=== PATIENT | female | born 1955 | race Caucasian/White ===

== ENCOUNTER → 2018-02-03 | Outpatient (CLI) | payer BC ==
--- NOTE | 2018-02-05 09:03 | MM ---
Reason for exam: screening (asymptomatic). Last mammogram was performed 4 years and 6 months ago. History: Patient is postmenopausal. Physical Findings: A clinical breast exam by your physician is recommended on an annual basis and results should be correlated with mammographic findings. MG 3D Screening Mammo W/Cad Bilateral CC and MLO view(s) were taken. Prior study comparison: July 27, 2013, bilateral digital screening mammo w/CAD. November 21, 2011, [facility] DIGITAL RIGHT MAMMOGRAM w/CAD. The breast tissue is heterogeneously dense. This may lower the sensitivity of mammography. No significant changes when compared with prior studies. ASSESSMENT: Negative, BI-RAD 1 RECOMMENDATION: Routine screening mammogram of both breasts in 1 year.
== END ==
LOC: RADMAMWWP 13:45
PROVIDERS: ATTEND Family Medicine
DX: Z12.31 Encounter for screening mammogram for malignant neoplasm of breast (principal)
CPT/HCPCS: 77063; 77067

== ENCOUNTER → 2019-03-18 | Outpatient (CLI) | payer BC ==
--- NOTE | 2019-03-18 15:28 | BD ---
EXAMINATION TYPE: Axial Bone Density DATE OF EXAM: 03/18/2019 COMPARISON: 04/21/2009 CLINICAL HISTORY: Height: 63 IN Weight: 141 LBS RISK FACTORS HISTORY OF: Active: YES Diet low in dairy products/other sources of calcium: YES Postmenopausal woman: AGE 52 MEDICATIONS: Additional Medications: VIT D3, THYROID SUPPLEMENT, FISH OIL EXAM MEASUREMENTS: Bone mineral densitometry was performed using the [employer] System. Bone mineral density as measured about the Lumbar spine is: ----- L1-L4(G/cm2): 0.908 T Score Values are as follows: ----- L2: -2.9 ----- L3: -1.7 ----- L4: -1.9 ----- L1-L4: -2.3 Bone mineral density has: Decreased -19.4% since study of: 04/21/2009 Bone mineral density about the R hip (g/cm2): 0.712 Bone mineral density about the L hip (g/cm2): 0.674 T Score values are as follows: -----R Neck: -2.3 -----L Neck: -2.6 -----R Total: -2.3 -----L Total: -2.4 Bone mineral density has: Decreased -27.7% since study of: 04/21/2009 IMPRESSION: Osteoporosis (T Score less than -2.5). There is increased fracture risk and therapy is usually indicated based on age. Re-Screen 1-2 years. NOTE: T-SCORE=SD OF THE YOUNG ADULT MEAN.
--- NOTE | 2019-03-19 09:46 | MM ---
Reason for exam: screening (asymptomatic). Last mammogram was performed 1 year and 1 month ago. History: Patient is postmenopausal. Physical Findings: A clinical breast exam by your physician is recommended on an annual basis and results should be correlated with mammographic findings. MG 3D Screening Mammo W/Cad Bilateral CC and MLO view(s) were taken. Prior study comparison: February 03, 2018, bilateral MG 3d screening mammo w/cad. July 27, 2013, bilateral digital screening mammo w/CAD. The breast tissue is heterogeneously dense. This may lower the sensitivity of mammography. There is a 7 mm equal density (isodense), obscured mass in the lower inner quadrant of the right breast. ASSESSMENT: Incomplete: need additional imaging evaluation, BI-RAD 0 RECOMMENDATION: Special view mammogram of the right breast. If lesion persists on supplemental views, image directed ultrasound is recommended. [facility] will attempt to contact patient to return for supplemental views and ultrasound if indicated.
== END | disposition home or self-care (01) ==
LOC: RADMAMWWP 13:45
PROVIDERS: ATTEND Family Medicine
DX: Z12.31 Encounter for screening mammogram for malignant neoplasm of breast (principal); M81.0 Age-related osteoporosis without current pathological fracture
CPT/HCPCS: 77063; 77067; 77080

== ENCOUNTER → 2019-04-06 | Outpatient (CLI) | payer BC ==
--- NOTE | 2019-04-07 07:12 | MM ---
Reason for exam: additional evaluation requested from abnormal screening. Last mammogram was performed 1 month ago. History: Patient is postmenopausal. Physical Findings: Nurse did not find any significant physical abnormalities on exam. MG 3D Work Up W/Cad RT Spot compression CC, spot compression MLO, and LM view(s) were taken of the right breast. Prior study comparison: March 18, 2019, bilateral MG 3d screening mammo w/cad. February 03, 2018, bilateral MG 3d screening mammo w/cad. The breast tissue is heterogeneously dense. This may lower the sensitivity of mammography. The previously seen abnormality resolves on additional views and appears as fibroglandular tissue compatible with summation. No suspicious abnormality. These results were verbally communicated with the patient and result sheet given to the patient on 04/06/19. ASSESSMENT: Negative, BI-RAD 1 RECOMMENDATION: Return to routine screening mammogram schedule for both breasts.
== END | disposition home or self-care (01) ==
LOC: RADMAMWWP 14:41
PROVIDERS: ATTEND Family Medicine
DX: R92.8 Other abnormal and inconclusive findings on diagnostic imaging of breast (principal)
CPT/HCPCS: 77061; 77065

== ENCOUNTER 2022-04-09 00:59 | Emergency (ER) | payer BC, OTHER ==
--- NOTE | 2022-04-09 02:11 | ED ---
Upper Extremity HPI - General Chief Complaint: Extremity Injury, Upper Stated Complaint: lt shoulder pain/neck pain Time Seen by Provider: 04/09/22 01:21 Source: patient Mode of arrival: ambulatory Limitations: no limitations - History of Present Illness Initial Comments: This patient is a 66-year-old woman who presents with complaint of pain that goes from her left back/shoulder down the left arm. The patient states this been going on mildly for a few days but became worse tonight. The patient does note that she is receiving therapy to her left shoulder and arm and believes that the pain may be related to that. Complaint: Injury to:: left, arm -: days(s) Other Extremity Injury: Arm: Left, Shoulder: Left Handedness: right Place: home Improves With: immobilization Worsens With: movement of extremity Context: other (Following therapy) Treatments Prior to Arrival: other - Related Data Previous Rx's Medication Instructions Recorded Ibuprofen [Motrin] 600 mg PO Q8HR PRN #20 tab 04/09/22 methocarbamoL [Robaxin-750] 750 mg PO QID #40 tab 04/09/22 Allergies Allergy/AdvReac Type Severity Reaction Status Date / Time No Known Allergies Allergy Verified 04/09/22 01:03 Review of Systems ROS Statement: Those systems with pertinent positive or pertinent negative responses have been documented in the HPI. ROS Other: All systems not noted in ROS Statement are negative. Constitutional: Denies: fever, chills Respiratory: Denies: cough, dyspnea Cardiovascular: Denies: chest pain, palpitations, edema Gastrointestinal: Denies: abdominal pain, vomiting, diarrhea Genitourinary: Denies: dysuria Musculoskeletal: Denies: back pain Skin: Denies: rash Neurological: Denies: headache, weakness, numbness, paresthesias Past Medical History Past Medical History: No Reported History History of Any Multi-Drug Resistant Organisms: None Reported Past Surgical History: Section Past Psychological History: No Psychological Hx Reported Smoking Status: Never smoker Past Alcohol Use History: Occasional Past Drug Use History: None Reported General Exam Limitations: no limitations General appearance: alert, in no apparent distress Head exam: Present: atraumatic, normocephalic Eye exam: Present: normal appearance. Absent: scleral icterus, conjunctival injection Neck exam: Present: normal inspection Respiratory exam: Present: normal lung sounds bilaterally. Absent: respiratory distress, wheezes, rales, rhonchi, stridor Cardiovascular Exam: Present: regular rate, normal rhythm, normal heart sounds. Absent: systolic murmur, diastolic murmur, rubs, gallop GI/Abdominal exam: Present: soft. Absent: distended, tenderness, guarding, rebound, rigid, mass Extremities exam: Present: normal inspection, normal capillary refill. Absent: pedal edema, calf tenderness Back exam: Present: normal inspection. Absent: CVA tenderness (R), CVA tenderness (L), vertebral tenderness Neurological exam: Present: alert Skin exam: Present: warm, dry, intact, normal color. Absent: rash Course Vital Signs 04/09/22 04/09/22 01:00 03:50 Temperature 97 F L 97.7 F Pulse Rate 76 63 Respiratory 22 18 Rate Blood Pressure 195/111 184/106 O2 Sat by Pulse 96 93 L Oximetry Medical Decision Making - Medical Decision Making Patient is 66-year-old woman with shoulder and arm pain following therapy. The symptoms are reproducible on the exam. Out of caution cardiac workup obtained which is unremarkable. The patient to use ice, rest, anti-inflammatories and follow-up. Discussed appropriate return parameters. - Lab Data Result diagrams: 04/09/22 02:20 04/09/22 02:20 Lab Results 04/09/22 04/09/22 04/09/22 Range/Units 02:20 02:20 02:20 WBC 6.0 (3.8-10.6) k/uL RBC 5.16 (3.80-5.40) m/uL Hgb 15.9 (11.4-16.0) gm/dL Hct 46.2 H (34.0-46.0) % MCV 89.4 (80.0-100.0) fL MCH 30.8 (25.0-35.0) pg MCHC 34.4 (31.0-37.0) g/dL RDW 12.8 (11.5-15.5) % Plt Count 234 (150-450) k/uL MPV 8.8 Neutrophils % 82 % Lymphocytes % 13 % Monocytes % 2 % Eosinophils % 1 % Basophils % 1 % Neutrophils # 4.9 (1.3-7.7) k/uL Lymphocytes # 0.8 L (1.0-4.8) k/uL Monocytes # 0.1 (0-1.0) k/uL Eosinophils # 0.1 (0-0.7) k/uL Basophils # 0.0 (0-0.2) k/uL D-Dimer (<0.60) mg/L FEU Sodium 139 (137-145) mmol/L Potassium 4.2 (3.5-5.1) mmol/L Chloride 108 H (98-107) mmol/L Carbon Dioxide 21 L (22-30) mmol/L Anion Gap 10 mmol/L BUN 18 H (7-17) mg/dL Creatinine 0.75 (0.52-1.04) mg/dL Est GFR (CKD-EPI)AfAm >90 (>60 ml/min/1.73 sqM) Est GFR (CKD-EPI)NonAf 85 (>60 ml/min/1.73 sqM) Glucose 162 H (74-99) mg/dL Calcium 11.0 H (8.4-10.2) mg/dL Total Bilirubin 0.4 (0.2-1.3) mg/dL AST 30 (14-36) U/L ALT 35 H (4-34) U/L Alkaline Phosphatase 171 H (38-126) U/L Troponin I <0.012 (0.000-0.034) ng/mL Total Protein 8.0 (6.3-8.2) g/dL Albumin 4.7 (3.5-5.0) g/dL 04/09/22 Range/Units 02:20 WBC (3.8-10.6) k/uL RBC (3.80-5.40) m/uL Hgb (11.4-16.0) gm/dL Hct (34.0-46.0) % MCV (80.0-100.0) fL MCH (25.0-35.0) pg MCHC (31.0-37.0) g/dL RDW (11.5-15.5) % Plt Count (150-450) k/uL MPV Neutrophils % % Lymphocytes % % Monocytes % % Eosinophils % % Basophils % % Neutrophils # (1.3-7.7) k/uL Lymphocytes # (1.0-4.8) k/uL Monocytes # (0-1.0) k/uL Eosinophils # (0-0.7) k/uL Basophils # (0-0.2) k/uL D-Dimer 0.29 (<0.60) mg/L FEU Sodium (137-145) mmol/L Potassium (3.5-5.1) mmol/L Chloride (98-107) mmol/L Carbon Dioxide (22-30) mmol/L Anion Gap mmol/L BUN (7-17) mg/dL Creatinine (0.52-1.04) mg/dL Est GFR (CKD-EPI)AfAm (>60 ml/min/1.73 sqM) Est GFR (CKD-EPI)NonAf (>60 ml/min/1.73 sqM) Glucose (74-99) mg/dL Calcium (8.4-10.2) mg/dL Total Bilirubin (0.2-1.3) mg/dL AST (14-36) U/L ALT (4-34) U/L Alkaline Phosphatase (38-126) U/L Troponin I (0.000-0.034) ng/mL Total Protein (6.3-8.2) g/dL Albumin (3.5-5.0) g/dL Disposition Clinical Impression: Muscle strain Disposition: HOME SELF-CARE Condition: Good Instructions (If sedation given, give patient instructions): Muscle Strain (ED) Prescriptions: Ibuprofen [Motrin] 600 mg PO Q8HR PRN #20 tab PRN Reason: Pain methocarbamoL [Robaxin-750] 750 mg PO QID #40 tab Is patient prescribed a controlled substance at d/c from ED?: No Referrals: Marcela Naranjo DO [Primary Care Provider] - 1-2 days
[2022-04-09] MEDS ORDERED: MORPHINE SULFATE 4 MG/ML SYRINGE IV STA (02:22)
[2022-04-09] MEDS ORDERED: KETOROLAC 15 MG/ML 1 ML VIAL IVP STA (02:22)
--- NOTE | 2022-04-09 02:42 | XR ---
EXAM: XR Chest, 2 Views CLINICAL HISTORY: ITS.REASON XR Reason: Chest Pain TECHNIQUE: Frontal and lateral views of the chest. COMPARISON: No relevant prior studies available. FINDINGS: Lungs: Unremarkable. Pleural space: Unremarkable. Heart: Unremarkable. Mediastinum: Unremarkable. Bones/joints: Unremarkable. IMPRESSION: Normal chest x-rays.
[2022-04-09 02:43] LABS: Basophils % (A) 1 %; Eosinophils # (A) 0.1 k/uL (0-0.7); Eosinophils % (A) 1 %; HCT 46.2 % (34.0-46.0); HGB 15.9 gm/dL (11.4-16.0); Lymphocytes # (A) 0.8 k/uL (1.0-4.8); Lymphocytes % (A) 13 %; MCH 30.8 pg (25.0-35.0); MCHC 34.4 g/dL (31.0-37.0); MCV 89.4 fL (80.0-100.0); Mean Platelet Volume 8.8; Monocytes # (A) 0.1 k/uL (0-1.0); Monocytes % (A) 2 %; Neutrophils # (A) 4.9 k/uL (1.3-7.7); Neutrophils % (A) 82 %; Platelet Count 234 k/uL (150-450); RBC 5.16 m/uL (3.80-5.40); RDW 12.8 % (11.5-15.5)
[2022-04-09 02:56] LABS: ALT 35 U/L (4-34); AST 30 U/L (14-36); African American GFR (CKD) >90 (>60 ml/min/1.73 sqM); Albumin 4.7 g/dL (3.5-5.0); Alkaline Phosphatase 171 U/L (38-126); Anion Gap 10 mmol/L; Blood Urea Nitrogen 18 mg/dL (7-17); Carbon Dioxide 21 mmol/L (22-30); Chloride 108 mmol/L (98-107); Glucose 162 mg/dL (74-99); Non-African American GFR(CKD) 85 (>60 ml/min/1.73 sqM); Potassium 4.2 mmol/L (3.5-5.1); Sodium 139 mmol/L (137-145); Total Bilirubin 0.4 mg/dL (0.2-1.3)
[2022-04-09] MEDS ORDERED: traMADol 50 MG STARTER PACK 3 TAB BTL PO STA (03:42)
[2022-04-09] MEDS ORDERED: IBUPROFEN 600 MG STARTER PACK 4 TAB BTL PO STA (03:42)
[2022-04-09 03:51] VITALS: BP 184/106; PULSE 63; RESP 18; TEMP 97.7
== END 2022-04-09 04:07 | disposition home or self-care (01) ==
LOC: EC 00:59
DX: S46.912A Strain of unspecified muscle, fascia and tendon at shoulder and upper arm level, left arm, initial encounter (principal); X58.XXXA Exposure to other specified factors, initial encounter
CPT/HCPCS: 99284; 96374; 96375; 36415; 93005; 85379; 80053; 84484; 85025; 71046; J2270; J1885

== ENCOUNTER → 2023-02-18 | Outpatient (CLI) | payer MEDICARE, BC ==
--- NOTE | 2023-02-18 22:41 | BD ---
EXAMINATION TYPE: Axial Bone Density DATE OF EXAM: 02/18/2023 CLINICAL HISTORY: 67 years old Female. ICD-10 CODE: Z78.0 MENOPAUSAL STATE Height: 5 ft 2 1/2 in Weight: 143 FRAX RISK QUESTIONS: Alcohol (3 or more units per day): no Family History (Parent hip fracture): no Glucocorticoids (More than 3mos): no (Ex: prednisone, prednisolone, methylprednisolone, dexamethasone, and hydrocortisone). History of Fracture in Adulthood: no Secondary Osteoporosis: 1. Type 1 Diabetes: no 2. Hyperthyroidism: no 3. Menopause before 45: no 4. Malnutrition: no 5. Chronic liver disease: no Rheumatoid Arthritis: no Current Tobacco Use: no RISK FACTORS HISTORY OF: Surgery to Spine/Hip(right/left)/Wrist (right/left): no Family History of Osteoporosis: no Active: yes Diet low in dairy products/other sources of calcium: no Postmenopausal woman: yes Take estrogen and/or progesterone medications: no Lost more than 2 inches in height since high school: no Frequent falls: no Poor Health: good Hyperparathyroidism: no Adrenal Insufficiency: no MEDICATIONS: Additional Medications: none Additional History: EXAM MEASUREMENTS: Bone mineral densitometry was performed using the [employer] System. Bone mineral density as measured about the Lumbar spine is: ----- L1-L4(G/cm2): 0.868 T Score Values are as follows: ----- L1: -3.0 ----- L2: -3.5 ----- L3: -2.6 ----- L4: -1.5 ----- L1-L4: -2.6 Z Score Values are as follows: ----- L1: -1.4 ----- L2: -1.9 ----- L3: -1.0 ----- L4: 0.1 ----- L1-L4: -1.0 Bone mineral density has: decreased -4.4 % since study of: 2019 Bone mineral density about the R hip (g/cm2): 0.679 Bone mineral density about the L hip (g/cm2): 0.699 T Score values are as follows: -----R Neck: -2.6 -----L Neck: -2.4 -----R Total: -2.4 -----L Total: -2.4 Z Score values are as follows: -----R Neck: -1.1 -----L Neck: -0.9 -----R Total: -1.2 -----L Total: -1.2 Bone mineral density has: decreased -1.3 % since study of: 2019 FRAX%s: The graph provided illustrates a 14.1 % chance for a major osteoporotic fx and a 3.2 % chance for the hips probability for fx in 10 years time. IMPRESSION: Osteoporosis (T Score less than -2.5). There is increased fracture risk and therapy is usually indicated based on age. Re-Screen 1-2 years. NOTE: T-SCORE=SD OF THE YOUNG ADULT MEAN.
== END | disposition home or self-care (01) ==
LOC: RADBDWWP 15:55
PROVIDERS: ATTEND Family Medicine
DX: M81.0 Age-related osteoporosis without current pathological fracture (principal); M85.89 Other specified disorders of bone density and structure, multiple sites; Z78.0 Asymptomatic menopausal state
CPT/HCPCS: 77080

== ENCOUNTER 2024-06-25 03:31 | Inpatient (IN) | payer MEDICARE, BC ==
--- NOTE | 2024-06-25 04:25 | ED ---
General Adult HPI - General Chief complaint: Chest Pain Stated complaint: Chest Pain Time Seen by Provider: 06/25/24 04:13 Source: patient Mode of arrival: EMS Limitations: no limitations - History of Present Illness Initial comments: Trudy is a pleasant presents the ER today for evaluation of abdominal pain. Patient reports she has been having chest pressure for about 10 days it has been intermittent until about 2 days ago and it has been constant pressure in the chest. Patient states that she was somewhat constipated and thought it was just indigestion from that. Patient states that it became bothersome enough that this morning she saw her primary care provider who did an EKG and told her it was normal but did give her nitro and patient did have some temporary relief of her discomfort. This evening patient reports the pressure seem to get more intense and feel very heavy in her chest she then developed nausea and had episode of nonbloody nonbilious emesis. Patient reports she then had a bowel movement had about 2 minutes of relief from the discomfort and the pressure in her chest became more heavy at which time she decided to call EMS for transport to the hospital. Patient has no cardiac history. She does have a previous history of hypertension but reports she was able to wean herself off medications about 10 years ago. She does have hyperlipidemia does not believe she currently takes any medications for that. She is not diabetic and she was never a smoker. No significant family history of heart disease. - Related Data Previous Rx's Medication Instructions Recorded Ibuprofen [Motrin] 600 mg PO Q8HR PRN #20 tab 04/09/22 methocarbamoL [Robaxin-750] 750 mg PO QID #40 tab 04/09/22 Allergies Allergy/AdvReac Type Severity Reaction Status Date / Time No Known Allergies Allergy Verified 06/25/24 03:43 Review of Systems ROS Statement: Those systems with pertinent positive or pertinent negative responses have been documented in the HPI. ROS Other: All systems not noted in ROS Statement are negative. Past Medical History Past Medical History: Hypertension Additional Past Medical History / Comment(s): osteoporosis History of Any Multi-Drug Resistant Organisms: None Reported Past Surgical History: Section Past Psychological History: No Psychological Hx Reported Smoking Status: Never smoker Past Alcohol Use History: Occasional Past Drug Use History: None Reported General Exam - General Exam Comments Initial Comments: Physical Exam GENERAL: Patient is well-developed and well-nourished. Patient is nontoxic and well- hydrated and is in no distress. HENT: Normocephalic, Atraumatic. EYES: PERRL, EOMI PULMONARY: Unlabored respirations. No audible rales rhonchi or wheezing was noted. CARDIOVASCULAR: There is a regular rate and rhythm without any murmurs gallops or rubs. ABDOMEN: Soft and nontender with normal bowel sounds. SKIN: Skin is clear with no lesions or rashes and otherwise unremarkable. : Deferred NEUROLOGIC: Patient is alert and oriented x3. Moving all extremities spontaneously MUSCULOSKELETAL: Normal extremities with adequate strength and full range of motion. No lower extremity swelling or edema. No calf tenderness. PSYCHIATRIC: Normal psychiatric evaluation. Limitations: no limitations Course Vital Signs 06/25/24 06/25/24 03:32 05:41 Temperature 98.6 F Pulse Rate 63 65 Respiratory 16 16 Rate Blood Pressure 153/88 164/101 O2 Sat by Pulse 95 94 L Oximetry EKG Findings - EKG Comments: EKG Findings:: Interpreted by me EKG obtained due to chest pain EKG obtained at 3:52 AM rate is 63 rhythm is sinus normal axis normal intervals VA 175 QRS 92 QTc 425 there are no acute ST elevations or depressions there is no evidence of acute ischemia or infarction. Medical Decision Making - Medical Decision Making Was pt. sent in by a medical professional or institution (, [facility], MEDICATION NURSE, urgent care, hospital, or half-way...) When possible be specific @ -No Did you speak to anyone other than the patient for history (EMS, parent, family, police, friend...)? What history was obtained from this source @ -No Did you review nursing and triage notes (agree or disagree)? Why? @ -I reviewed and agree with nursing and triage notes Were old charts reviewed (outside hosp., previous admission, EMS record, old EKG, old radiological studies, urgent care reports/EKG's, half-way records)? Report findings @ -No old charts were reviewed Differential Diagnosis (chest pain, altered mental status, abdominal pain women, abdominal pain men, vaginal bleeding, weakness, fever, dyspnea, syncope, headache, dizziness, GI bleed, back pain, seizure, CVA, palpatations, mental health)? @ -Differential Chest Pain: Stable Angina, Unstable Angina, STEMI, NSTEMI Aortic Dissection, Pneumothorax, Musculoskeletal, Esophageal Spasm GERD, Cholecystitis, Pancreatitis, Zoster, this is not meant to be an all-inclusive list. EKG interpreted by me (3pts min.). @ -As above X-rays interpreted by me (1pt min.). @ -No pneumothorax no consolidations no widened mediastinum CT interpreted by me (1pt min.). @ -None done U/S interpreted by me (1pt. min.). @ -None done What testing was considered but not performed or refused? (CT, X-rays, U/S, labs)? Why? @ -None What meds were considered but not given or refused? Why? @ -None Did you discuss the management of the patient with other professionals (professionals i.e. DrMartita, PA, MEDICATION NURSE, lab, RT, psych nurse, social media coordinator, salsa dance instructor, teacher, conservation officer, welfare case worker)? Give summary @ -No Was smoking cessation discussed for >3mins.? @ -No Was critical care preformed (if so, how long)? @ -Yes 30 minutes Were there social determinants of health that impacted care today? How? (Homelessness, low income, unemployed, alcoholism, drug addiction, transportation, low edu. Level, literacy, decrease access to med. care, prison, rehab)? @ -No Was there de-escalation of care discussed even if they declined (Discuss DNR or withdrawal of care, Hospice)? DNR status @ -No What co-morbidities impacted this encounter? (DM, HTN, Smoking, COPD, CAD, Cancer, CVA, ARF, Chemo, Hep., AIDS, mental health diagnosis, sleep apnea, morbid obesity)? @ -Hypertension , hyperlipidemia Was patient admitted / discharged? Hospital course, mention meds given and route, prescriptions, significant lab abnormalities, going to OR and other pertinent info. @ -Admit Patient was seen and evaluated upon arrival to the emergency department. Patient with multiple atypical of acute coronary syndrome EKG with possible Q waves but no acute ST elevations or depressions Labs were obtained and troponin is mildly elevated given that the patient is having symptoms concerning for ACS and elevated troponin we will treat as an NSTEMI. Heparin was initiated. Patient will be for evaluation by cardiology. Undiagnosed new problem with uncertain prognosis? @ -No Drug Therapy requiring intensive monitoring for toxicity (Heparin, Nitro, Insulin, Cardizem)? @ -, Heparin Were any procedures done? @ -No Diagnosis/symptom? @ -NSTEMI Acute, or Chronic, or Acute on Chronic? @ -Acute Uncomplicated (without systemic symptoms) or Complicated (systemic symptoms)? @ -Default Side effects of treatment? @ -No Exacerbation, Progression, or Severe Exacerbation? @ -No Poses a threat to life or bodily function? How? (Chest pain, [place], [place], pneumonia, PE, COPD, DKA, ARF, appy, cholecystitis, CVA, Diverticulitis, Homicidal, Suicidal, threat to staff... and all critical care pts) @ -Yes - Lab Data Result diagrams: 06/25/24 03:53 06/25/24 03:53 Lab Results 06/25/24 06/25/24 06/25/24 Range/Units 03:53 03:53 03:53 WBC 7.1 (3.8-10.6) k/uL RBC 4.78 (3.80-5.40) m/uL Hgb 14.2 (11.4-16.0) gm/dL Hct 42.3 (34.0-46.0) % MCV 88.5 (80.0-100.0) fL MCH 29.7 (25.0-35.0) pg MCHC 33.6 (31.0-37.0) g/dL RDW 12.5 (11.5-15.5) % Plt Count 196 (150-450) k/uL MPV 9.0 Neutrophils % 77 % Lymphocytes % 16 % Monocytes % 5 % Eosinophils % 1 % Basophils % 0 % Neutrophils # 5.5 (1.3-7.7) k/uL Lymphocytes # 1.1 (1.0-4.8) k/uL Monocytes # 0.3 (0-1.0) k/uL Eosinophils # 0.1 (0-0.7) k/uL Basophils # 0.0 (0-0.2) k/uL PT 10.5 (10.0-12.5) sec INR 0.9 (<1.2) APTT 22.6 (22.0-30.0) sec Sodium 140 (137-145) mmol/L Potassium 4.1 (3.5-5.1) mmol/L Chloride 107 (98-107) mmol/L Carbon Dioxide 25 (22-30) mmol/L Anion Gap 8 mmol/L BUN 17 (7-17) mg/dL Creatinine 0.74 (0.52-1.04) mg/dL Est GFR (CKD-EPI)AfAm >90 (>60 ml/min/1.73 sqM) Est GFR (CKD-EPI)NonAf 85 (>60 ml/min/1.73 sqM) Glucose 158 H (74-99) mg/dL Calcium 11.2 H (8.4-10.2) mg/dL Magnesium 2.2 (1.6-2.3) mg/dL Total Bilirubin 0.5 (0.2-1.3) mg/dL AST 28 (14-36) U/L ALT 28 (4-34) U/L Alkaline Phosphatase 130 H (38-126) U/L Troponin I (0.000-0.034) ng/mL NT-Pro-B Natriuret Pep 62 pg/mL Total Protein 6.8 (6.3-8.2) g/dL Albumin 4.0 (3.5-5.0) g/dL Lipase 107 (23-300) U/L 06/25/24 Range/Units 03:53 WBC (3.8-10.6) k/uL RBC (3.80-5.40) m/uL Hgb (11.4-16.0) gm/dL Hct (34.0-46.0) % MCV (80.0-100.0) fL MCH (25.0-35.0) pg MCHC (31.0-37.0) g/dL RDW (11.5-15.5) % Plt Count (150-450) k/uL MPV Neutrophils % % Lymphocytes % % Monocytes % % Eosinophils % % Basophils % % Neutrophils # (1.3-7.7) k/uL Lymphocytes # (1.0-4.8) k/uL Monocytes # (0-1.0) k/uL Eosinophils # (0-0.7) k/uL Basophils # (0-0.2) k/uL PT (10.0-12.5) sec INR (<1.2) APTT (22.0-30.0) sec Sodium (137-145) mmol/L Potassium (3.5-5.1) mmol/L Chloride (98-107) mmol/L Carbon Dioxide (22-30) mmol/L Anion Gap mmol/L BUN (7-17) mg/dL Creatinine (0.52-1.04) mg/dL Est GFR (CKD-EPI)AfAm (>60 ml/min/1.73 sqM) Est GFR (CKD-EPI)NonAf (>60 ml/min/1.73 sqM) Glucose (74-99) mg/dL Calcium (8.4-10.2) mg/dL Magnesium (1.6-2.3) mg/dL Total Bilirubin (0.2-1.3) mg/dL AST (14-36) U/L ALT (4-34) U/L Alkaline Phosphatase (38-126) U/L Troponin I 0.079 H* (0.000-0.034) ng/mL NT-Pro-B Natriuret Pep pg/mL Total Protein (6.3-8.2) g/dL Albumin (3.5-5.0) g/dL Lipase (23-300) U/L Disposition Clinical Impression: NSTEMI (non-ST elevated myocardial infarction) Disposition: ADMITTED IP TO THIS HOSP Condition: Stable Is patient prescribed a controlled substance at d/c from ED?: No
[2024-06-25 04:43] LABS: Basophils % (A) 0 %; Eosinophils # (A) 0.1 k/uL (0-0.7); Eosinophils % (A) 1 %; HCT 42.3 % (34.0-46.0); HGB 14.2 gm/dL (11.4-16.0); Lymphocytes # (A) 1.1 k/uL (1.0-4.8); Lymphocytes % (A) 16 %; MCH 29.7 pg (25.0-35.0); MCHC 33.6 g/dL (31.0-37.0); MCV 88.5 fL (80.0-100.0); Monocytes # (A) 0.3 k/uL (0-1.0); Monocytes % (A) 5 %; Neutrophils # (A) 5.5 k/uL (1.3-7.7); Neutrophils % (A) 77 %; Platelet Count 196 k/uL (150-450); RBC 4.78 m/uL (3.80-5.40); RDW 12.5 % (11.5-15.5); WBC 7.1 k/uL (3.8-10.6)
[2024-06-25 04:52] LABS: INR 0.9 (<1.2); Partial Thromboplastin Time 22.6 sec (22.0-30.0); Prothrombin Time 10.5 sec (10.0-12.5)
--- NOTE | 2024-06-25 04:56 | XR ---
EXAMINATION TYPE: XR chest 2V DATE OF EXAM: 06/25/2024 COMPARISON: Chest x-ray April 09, 2022 HISTORY: Chest pain. TECHNIQUE: Frontal and lateral views of the chest are obtained. FINDINGS: There is no focal air space opacity, pleural effusion, or pneumothorax seen. The cardiac silhouette size is stable and within normal limits. The osseous structures are intact. IMPRESSION: No acute cardiopulmonary process. [facility], , 06/25/2024 4:53 AM
[2024-06-25 05:14] LABS: ALT 28 U/L (4-34); AST 28 U/L (14-36); African American GFR (CKD) >90 (>60 ml/min/1.73 sqM); Alkaline Phosphatase 130 U/L (38-126); Anion Gap 8 mmol/L; Blood Urea Nitrogen 17 mg/dL (7-17); Calcium 11.2 mg/dL (8.4-10.2); Carbon Dioxide 25 mmol/L (22-30); Chloride 107 mmol/L (98-107); Glucose 158 mg/dL (74-99); Lipase 107 U/L (23-300); Magnesium 2.2 mg/dL (1.6-2.3); Non-African American GFR(CKD) 85 (>60 ml/min/1.73 sqM); Potassium 4.1 mmol/L (3.5-5.1); Sodium 140 mmol/L (137-145); Total Bilirubin 0.5 mg/dL (0.2-1.3); Total Protein 6.8 g/dL (6.3-8.2)
[2024-06-25 05:21] LABS: NT-Pro-B-Type Natriuretic Pept 62 pg/mL
[2024-06-25] MEDS ORDERED: HEPARIN SODIUM 1,000 UN/ML (10ML VL) IV PRN (05:35)
[2024-06-25] MEDS ORDERED: NITROGLYCERIN SL TABS 0.4 MG TAB SUBLINGUAL PRN ×2 (05:41→09:47)
[2024-06-25] MEDS: HEPARIN SOD,PORK IN 0.45% NACL 25,000 UNIT in 0.45% NACL 1 250ML.BAG IV SCH (05:59)
[2024-06-25] MEDS: HEPARIN SODIUM 1,000 UN/ML (10ML VL) IV ONE ×2 (06:00→13:26)
[2024-06-25] MEDS: METOPROLOL TARTRATE 25 MG TAB PO STA (06:00)
[2024-06-25] MEDS ORDERED: ALPRAZolam 0.5 MG TAB PO PRN (09:47)
[2024-06-25] MEDS: lisinopriL 5 MG TAB PO SCH (10:11)
[2024-06-25] MEDS: ASPIRIN 325 MG TAB PO SCH (10:11)
[2024-06-25] MEDS: ASPIRIN 325 MG TAB PO STA (10:11)
[2024-06-25] MEDS: ATORVASTATIN 80 MG TAB PO STA (11:05)
[2024-06-25] MEDS: SODIUM CHLORIDE 0.9% 1,000 ML in EMPTY BAG 1 BAG IV SCH (11:09)
--- NOTE | 2024-06-25 11:28 | P.CRDCN ---
History of Present Illness History of present illness: HISTORY OF PRESENT ILLNESS: This is a 69-year-old female with a past medical history significant for osteoporosis. Patient does not follow with a rfid analyst. We have been asked to see the patient in consultation for non-STEMI. Patient examined at the bedside. Patient states she has been having chest pain on and off for the past 10 days. She states that she initially thought it was heartburn. She states over the past 2 days her chest pain has been more frequent. She states yesterday she had an episode of chest discomfort in the middle of her chest that was more severe than her previous episodes. She also felt nauseated and had an episode of vomiting. She reports that she did take 2 nitro yesterday which did help her chest pain. Patient denies any previous history of CAD. She states her brother did have a heart attack in his 70s. She is a non-smoker. The patient does report that she used to be prescribed antihypertensive medications. She states that she did lose weight and did not require medications any longer. The patient's blood pressures have been elevated since coming to the hospital with a systolic between [id number]. DIAGNOSTICS: - EKG reveals sinus mechanism with no signs of acute ischemia - Chest xray negative for acute process - Laboratory data: WBC 7.1. Hemoglobin 14.2. Platelet count 196. Sodium 140. Potassium 4.1. BUN 17. Creatinine 0.74. Magnesium 2.2. Troponin 0.079. 0.138. proBNP 62. - Current home cardiac medications include none REVIEW OF SYSTEMS: At the time of my exam: CONSTITUTIONAL: Denies fever or chills. HEENT: Denies blurred vision, vision changes, or eye pain. Denies hemoptysis CARDIOVASCULAR: Denies chest pain. Denies orthopnea. Denies PND. Denies palpitations RESPIRATORY: Denies shortness of breath. GASTROINTESTINAL: Denies abdominal pain. Denies nausea or vomiting. HEMATOLOGIC: Denies bleeding disorders. GENITOURINARY: Denies any blood in urine. SKIN: Denies pruitis. Denies rash. PHYSICAL EXAM: VITAL SIGNS: Reviewed. GENERAL: Well-developed in no acute distress. HEENT: Head is normocephalic. Pupils are equal, round. Sclerae anicteric. Mucous membranes of the mouth are moist. Neck supple. No JVD or thyromegaly LUNGS: Respirations even and unlabored. Lungs essentially clear to auscultation bilaterally. HEART: Regular rate and rhythm. S1 and S2 heard. ABDOMEN: Soft. Nondistended. Nontender. EXTREMITIES: Normal range of motion. No clubbing or cyanosis. Peripheral pulses intact. No lower extremity edema NEUROLOGIC: Awake and alert. Oriented x 3. ASSESSMENT: Non-STEMI History of hypertension that improved with weight loss Osteoporosis PLAN: Add aspirin 81 mg daily and atorvastatin 80 mg at night Continue IV heparin Patient has been started on lisinopril for optimal blood pressure control No beta-melissa at this time secondary to baseline sinus bradycardia Obtain 2D echo to assess cardiac structure and function Check lipid panel and hemoglobin A1c Patient to undergo cardiac catheterization today with Dr. Dunn Further recommendations pending patient course Nurse practitioner note has been reviewed by physician. Signing provider agrees with the documented findings, assessment, and plan of care documented by THREAD MACHINE OPERATOR as a scribe. Past Medical History Past Medical History: Hypertension Additional Past Medical History / Comment(s): osteoporosis History of Any Multi-Drug Resistant Organisms: None Reported Past Surgical History: Section Past Psychological History: No Psychological Hx Reported Smoking Status: Never smoker Past Alcohol Use History: Occasional Past Drug Use History: None Reported Medications and Allergies Home Medications Medication Instructions Recorded Confirmed Type No Known Home Medications 06/25/24 06/25/24 History Allergies Allergy/AdvReac Type Severity Reaction Status Date / Time No Known Allergies Allergy Verified 06/25/24 07:31 Physical Exam Vitals: Vital Signs Temp Pulse Resp BP Pulse Ox 06/25/24 06:32 147/96 06/25/24 05:41 65 16 164/101 94 L 06/25/24 03:32 98.6 F 63 16 153/88 95 Intake and Output 06/24/24 06/25/24 06/25/24 22:59 06:59 14:59 Other: Weight 64.864 kg Results 06/25/24 03:53 06/25/24 03:53 Cardiac Enzymes 06/25/24 06/25/24 06/25/24 Range/Units 03:53 03:53 07:03 AST 28 (14-36) U/L Troponin I 0.079 H* 0.138 H* (0.000-0.034) ng/mL Coagulation 06/25/24 Range/Units 03:53 PT 10.5 (10.0-12.5) sec APTT 22.6 (22.0-30.0) sec CBC 06/25/24 Range/Units 03:53 WBC 7.1 (3.8-10.6) k/uL RBC 4.78 (3.80-5.40) m/uL Hgb 14.2 (11.4-16.0) gm/dL Hct 42.3 (34.0-46.0) % Plt Count 196 (150-450) k/uL Comprehensive Metabolic Panel 06/25/24 Range/Units 03:53 Sodium 140 (137-145) mmol/L Potassium 4.1 (3.5-5.1) mmol/L Chloride 107 (98-107) mmol/L Carbon Dioxide 25 (22-30) mmol/L BUN 17 (7-17) mg/dL Creatinine 0.74 (0.52-1.04) mg/dL Glucose 158 H (74-99) mg/dL Calcium 11.2 H (8.4-10.2) mg/dL AST 28 (14-36) U/L ALT 28 (4-34) U/L Alkaline Phosphatase 130 H (38-126) U/L Total Protein 6.8 (6.3-8.2) g/dL Albumin 4.0 (3.5-5.0) g/dL Current Medications Generic Name Dose Route Start Last Admin Trade Name Freq PRN Reason Stop Dose Admin Aspirin 325 mg 06/26/24 09:00 Aspirin 325 Mg Tab PO DAILY [facility] Heparin Sodium (Porcine) 0 unit 06/25/24 05:35 Heparin Sodium 1,000 Un/Ml (10ml Vl) IV PER PROTOCOL PRN Low PTT Protocol Heparin Sodium/Sodium Chloride 250 mls @ 7.784 mls/hr 06/25/24 05:45 06/25/24 05:59 25,000 unit/ Sodium Chloride IV 12 units/kg/hr .Q24H MARY 7.784 mls/hr Administration Protocol 12 UNITS/KG/HR Nitroglycerin 0.4 mg 06/25/24 05:41 Nitroglycerin Sl Tabs 0.4 Mg Tab SUBLINGUAL Q5M PRN Chest Pain Intake and Output 06/24/24 06/25/24 06/25/24 22:59 06:59 14:59 Other: Weight 64.864 kg 06/25/24 03:53 06/25/24 03:53
--- NOTE | 2024-06-25 12:46 | P.HPIM ---
History of Present Illness H&P Date: 06/25/24 History of present illness; patient 69-year-old lady with no significant past medical history brought in the ER because of chest pain. Patient stated that she has been having intermittent chest pain for the last 10 days. Chest pain is like a constant pressure central nonradiating, no aggravating or relieving factor associated with this chest pressure, almost feels like indigestion. There was no complaint of shortness of breath. Denies any palpitation. There is no complaint orthopnea or PND. Denies any fever or chills. Patient went to see her PCP yesterday who did an EKG and gave her some nitro that relieved her pain. Overnight patient was having more of this chest pressure associated with nausea and vomiting at the time patient decided come to the ER. Initial lab work done in the ER showed WBC 7.1, hemoglobin 14.2, platelet count 196, sodium 140, potassium 4.1 BUN 17, creatinine 0.74, calcium 11.2, troponin 0.079 EKG done in the ER showed heart rate of 63 , no ST segment elevation or depression seen, Q waves in V1 V2 no T-wave inversions seen. Chest x-ray done in the ER showed no acute cardiopulmonary process Patient admitted to internal medicine service REVIEW OF SYSTEMS: CONSTITUTIONAL: No fever, no malaise, no fatigue. HEENT: No recent visual problems or hearing problems. Denied any sore throat. CARDIOVASCULAR: As mentioned above PULMONARY: As mentioned above GASTROINTESTINAL: As mentioned above NEUROLOGICAL: No headaches, no weakness, no numbness. HEMATOLOGICAL: Denies any bleeding or petechiae. GENITOURINARY: Denies any burning micturition, frequency, or urgency. MUSCULOSKELETAL/RHEUMATOLOGICAL: Denies any joint pain, swelling, or any muscle pain. ENDOCRINE: Denies any polyuria or polydipsia. The rest of the 14-point review of systems is negative. PHYSICAL EXAMINATION: GENERAL: The patient is alert and oriented x3, not in any acute distress. Well developed, well nourished. HEENT: Pupils are round and equally reacting to light. EOMI. No scleral icterus. No conjunctival pallor. Normocephalic, atraumatic. No pharyngeal erythema. No thyromegaly. CARDIOVASCULAR: S1 and S2 present. No murmurs, rubs, or gallops. PULMONARY: Chest is clear to auscultation, no wheezing or crackles. ABDOMEN: Soft, nontender, nondistended, normoactive bowel sounds. No palpable organomegaly. MUSCULOSKELETAL: No joint swelling or deformity. EXTREMITIES: No cyanosis, clubbing, or pedal edema. NEUROLOGICAL: Gross neurological examination did not reveal any focal deficits. SKIN: No rashes. Assessment and plan Non-ST elevation [place] hypertension Monitor vital signs Monitor CBC Monitor CMP Continue telemetry monitoring Trend troponin Ordered lipid panel Ordered HbA1c Ordered 2D echo Start pharmacy to dose heparin Consult cardiology Labs and medication were reviewed.. Continue same treatment. Continue with symptomatic treatment. Resume home medication. Monitor labs and vitals. DVT and GI prophylaxis. Further recommendations as per clinical course of the patient Dictation was produced using O[employer] dictation software. please excuse any gram matical, word or spelling errors. Past Medical History Past Medical History: Hypertension Additional Past Medical History / Comment(s): osteoporosis History of Any Multi-Drug Resistant Organisms: None Reported Past Surgical History: Section Past Psychological History: No Psychological Hx Reported Smoking Status: Never smoker Past Alcohol Use History: Occasional Past Drug Use History: None Reported Medications and Allergies Home Medications Medication Instructions Recorded Confirmed Type No Known Home Medications 06/25/24 06/25/24 History Allergies Allergy/AdvReac Type Severity Reaction Status Date / Time No Known Allergies Allergy Verified 06/25/24 07:31 Physical Exam Vitals: Vital Signs Temp Pulse Resp BP Pulse Ox 06/25/24 09:00 55 L 14 150/90 96 06/25/24 08:00 61 16 149/82 96 06/25/24 06:32 147/96 06/25/24 05:41 65 16 164/101 94 L 06/25/24 03:32 98.6 F 63 16 153/88 95 Intake and Output 06/24/24 06/25/24 06/25/24 22:59 06:59 14:59 Other: Weight 64.864 kg Results CBC & Chem 7: 06/25/24 03:53 06/25/24 03:53 Labs: Abnormal Lab Results - Last 24 Hours (Table) 06/25/24 06/25/24 06/25/24 Range/Units 03:53 03:53 07:03 Glucose 158 H (74-99) mg/dL Calcium 11.2 H (8.4-10.2) mg/dL Alkaline Phosphatase 130 H (38-126) U/L Troponin I 0.079 H* 0.138 H* (0.000-0.034) ng/mL
[2024-06-25] MEDS: MIDAZOLAM 2 MG/2 ML VIAL IVP ONE ×2 (13:20→15:00)
[2024-06-25] MEDS: fentaNYL (PF) 50 MCG/ML 2 ML AMP IVP ONE (13:20)
[2024-06-25] MEDS: LIDOCAINE 1% INJ 10MG/ML (20 ML MDV) SQ ONE (13:21)
[2024-06-25] MEDS: VERAPAMIL SYRINGE (5 MG/10 ML) INTRAARTER ONE (13:23)
[2024-06-25] MEDS: IV FLUID CONTINUATION 800 ML IV ONE (13:24)
--- NOTE | 2024-06-25 13:54 | CA ---
Transthoracic Echo Report Name: Trudy Livingston Age: 69 Gender: F : 1955 Exam Date: 06/25/2024 10:14 Exam Location: [facility] Ht (in): 63 Wt (lb): 143 Ordering Physician: Josep Lundberg MD Attending/Referring Phys: Lan/Wan Engineer Felicia Rick RDCS Procedure CPT: Indications: Chest Pain Cardiac Hx: high BP Technical Quality: Good Contrast 1: Total Dose (mL): Contrast 2: Total Dose (mL): MEASUREMENTS (Male / Female) Normal Values 2D ECHO LV Diastolic Diameter PLAX 4.6 cm 4.2 - 5.9 / 3.9 - 5.3 cm LV Systolic Diameter PLAX 2.7 cm IVS Diastolic Thickness 1.1 cm 0.6 - 1.0 / 0.6 - 0.9 cm LVPW Diastolic Thickness 0.9 cm 0.6 - 1.0 / 0.6 - 0.9 cm LV Relative Wall Thickness 0.4 RV Internal Dim ED PLAX 2.8 cm LA Systolic Diameter LX 3.2 cm 3.0 - 4.0 / 2.7 - 3.8 cm LV Diastolic Volume MOD 4C 73.0 cm??? LV Systolic Volume MOD 4C 33.9 cm??? LV Ejection Fraction MOD 4C 53.5 % LV Cardiac Index MOD 4C 1278.9 cm???/min???m??? LV Diastolic Length 4C 7.6 cm LV Systolic Length 4C 5.9 cm LV Diastolic Volume MOD 2C 58.2 cm??? LV Systolic Volume MOD 2C 19.5 cm??? LV Ejection Fraction MOD 2C 66.4 % LV Cardiac Index MOD 2C 1266.6 cm???/min???m??? LV Diastolic Length 2C 7.8 cm LV Systolic Length 2C 6.0 cm LA Volume 47.2 cm??? 18 - 58 / 22 - 52 cm??? LA Volume Index 27.6 cm???/m??? 16 - 28 cm???/m??? M-MODE Aortic Root Diameter MM 2.8 cm MV E Point Septal Separation 0.6 cm AV Cusp Separation MM 1.7 cm DOPPLER AV Peak Velocity 134.1 cm/s AV Peak Gradient 7.2 mmHg AI Peak Velocity 440.7 cm/s AI Peak Gradient 77.7 mmHg AI Pressure Half Time 722.4 ms MV Area PHT 4.3 cm??? Mitral E Point Velocity 76.1 cm/s Mitral A Point Velocity 101.4 cm/s Mitral E to A Ratio 0.8 MV Deceleration Time 176.8 ms TR Peak Velocity 227.9 cm/s TR Peak Gradient 20.8 mmHg Right Ventricular Systolic Press 25.8 mmHg FINDINGS Left Ventricle Left ventricular ejection fraction is estimated at 60-65 %. Left ventricular cavity size normal. Mildly increased septal wall thickness. Normal left ventricular wall motion. Right Ventricle Normal right ventricular size. Right ventricular systolic pressure within normal limits. Right Atrium Normal right atrial size. No right atrial thrombus or mass seen. Left Atrium Normal left atrial size. No left atrial thrombus or mass present. Mitral Valve Structurally normal mitral valve. Mild mitral regurgitation. Aortic Valve Aortic valve sclerosis. Mild aortic regurgitation. No aortic stenosis. Tricuspid Valve Structurally normal tricuspid valve. Mild tricuspid regurgitation. Pulmonic Valve Structurally normal pulmonic valve. Trace pulmonic regurgitation. Pericardium No pericardial or pleural effusion. Aorta Normal size aortic root and proximal ascending aorta. CONCLUSIONS Diagnosis non-Q wave myocardial infarction, chest discomfort Preserved LV systolic function without any wall motion abnormalities Prominent posterior pericardial stripe Previewed by: Dr. Kaiden [facility] MD (Electronically Signed) Final Date: 25 June 2024 13:53
[2024-06-25] MEDS: TICAGRELOR 90 MG TAB PO ONE (14:01)
[2024-06-25] MEDS: ENALAPRILAT 1.25 MG/ML 1 ML VIAL IV ONE ×2 (14:22)
[2024-06-25] MEDS: hydrALAZINE HCL 20 MG/ML 1 ML VIAL IV ONE ×2 (14:22)
[2024-06-25] MEDS: MORPHINE SULFATE 5 MG/ML SYRINGE IVP ONE (14:27)
[2024-06-25] MEDS: FUROSEMIDE 10 MG/ML 4 ML VIAL IV ONE (14:30)
[2024-06-25] MEDS: NITROGLYCERIN-D5W PMX 50 MG in DEXTROSE/WATER 1 250ML.BAG IV ONE (14:33)
[2024-06-25] MEDS: HYDROmorphone 1 MG/ML 1 ML SYRINGE IVP ONE (14:35)
[2024-06-25] MEDS: FLUMAZENIL 0.1 MG/ML 5 ML VIAL IVP ONE ×2 (14:39→14:41)
[2024-06-25] MEDS: NALOXONE 0.4 MG/ML 1 ML VIAL IVP ONE (14:42)
[2024-06-25] MEDS: IOPAMIDOL-370 100ML BTL INJ ONE ×2 (14:46→14:48)
[2024-06-25 14:54] LABS: Glucose,Whole Blood 109 mg/dL (70-110)
[2024-06-25] MEDS ORDERED: RX INFO: IV CONTRAST WAS GIVEN 1 EACH MISC MISCELLANE PRN (14:56)
[2024-06-25] MEDS ORDERED: IPRATROPIUM-ALBUTEROL 3 ML NEB INHALATION PRN (15:33)
[2024-06-25 16:02] LABS: Glucose,Whole Blood 134 mg/dL (70-110)
--- NOTE | 2024-06-25 16:06 | CT ---
EXAMINATION TYPE: CT brain wo con DATE OF EXAM: 06/25/2024 COMPARISON: None HISTORY: 69-year-old female Code stroke in catheter lab, intubated due to confusion, altered mental s tatus, and combative TECHNIQUE: Examination was done in axial plane without intravenous contrast. Coronal and sagittal r econstructions performed. CT DLP: 1162.7 mGycm Automated exposure control for dose reduction was used. FINDINGS: There is IV contrast onboard relating to patient's catheter lab procedure. Allowing for this limitation, there is no evidence of acute intracranial hemorrhage, acute ischemic changes, mass, mass-effect, or extra-axial fluid collection. There is no effacement of cerebral sulc i or basal subarachnoid cisterns. There is no hydrocephalus. There is no midline shift. Garza-white matter distinction is preserved. Moderate patchy white matter hypodensities are present in both cerebral hemispheres. Undulating nasal septum. Paranasal sinuses and mastoid air cells well pneumatized. Orbits and globes are intact. IMPRESSION: 1. Some IV contrast onboard related to the patient's Network Cabler procedure. Allowing for this limitation , no acute intracranial abnormality is seen. 2. Moderate patchy burden of chronic small vessel ischemic disease. [facility], , 06/25/2024 4:04 PM
[2024-06-25] MEDS: IPRATROPIUM-ALBUTEROL 3 ML NEB INHALATION SCH (16:20)
[2024-06-25 16:32] LABS: ABG Base Excess 0.8 mmol/L; ABG HCO3 24 mmol/L (21-25); ABG PCO2 35 mmHg (35-45); ABG PH 7.45 (7.35-7.45); ABG PO2 333 mmHg (83-108); ABG TCO2 25 mmol/L (19-24); Allen Test Performed? Yes
--- NOTE | 2024-06-25 16:34 | XR ---
EXAMINATION TYPE: XR chest 1V portable DATE OF EXAM: 06/25/2024 Comparison: 06/25/2024 earlier today Clinical History: 69-year-old female Tube placement Findings: There is right mainstem intubation. Pull back 4 to 5 cm in reassessment follow-up. Developing volume loss in left hemithorax with patchy opacity. Mild interstitial prominence on the right is unchanged. Impression: 1. Right mainstem intubation. Pull back 4 - 5 cm and reassess at follow-up. 2. Developing volume loss left hemithorax. Called to Nurse Ashley on 2SICU at 4:30pm [facility], , 06/25/2024 4:32 PM
--- NOTE | 2024-06-25 16:35 | P.CARDCATH ---
Date of Procedure: 06/25/24 Description of Procedure: DIAGNOSTIC CORONARY ANGIOGRAPHY and LEFT HEART CATH REPORT PROCEDURES PERFORMED: Left heart catheterization Selective coronary angiography Moderate conscious sedation 19 mins Right radial access INDICATION: NSTEMI. Patient presents the hospital because of symptoms of substernal chest pressure. On admission she had evidence of elevated troponin with an uptrending pattern. For this she was scheduled for an urgent cardiac authorization procedure. CONSENT: I have explained the procedural steps of above-mentioned procedures in layman's terms to the patient. I discussed the risks (including but not limited to stroke, emergent vascular or cardiac surgery or ), benefits and alternative therapies for the above-mentioned procedure. I discussed the risks of sedation/analgesia and blood product administration (if indicated). The patient has indicated understanding and acceptance of these risks. Conscious Sedation: Patient's ECG, heart rate, blood pressure, pulse oximetry were monitored throughout the duration of procedure under my direct supervision. 1 mg Versed and 50 mcg Fentanyl were used for induction of moderate conscious sedation. After completing the diagnostic portion of cardiac authorization, I gave her 1 mg of additional Versed. Total Versed given during procedure is 2 mg. Total duration of moderate concious sedation 19 minutes. PROCEDURE: After explaining the risks, benefits and alternatives of the above mentioned procedures in detail to the patient, informed consent was obtained. Patient was taken to the catheterization lab, prepped and draped in usual sterile fashion using universal precuations. 1% lidocaine was infiltrated over the right radial artery. A 6-Italian sheath was placed and secured in the right radial artery using modified Seldinger technique. The sheath was flushed and 5 mg verapamil was administered intra-arterially. J tipped wire was advanced under fluoroscopic guidance. Once the wire tip reached aortic root 3500 units of IV heparin was given. Patient was on IV heparin drip prior to the procedure which was found off 30 minutes before the procedure. Over the wire 5 Italian [place] Varina diagnostic catheter was advanced. The wire in place the catheter was manipulated to cross the aortic valve and entered into LV under fluoroscopy guidance. The wire was removed and the catheter was flushed. LV pressures were obtained and pullback was performed under fluoroscopy. Catheter was manipulated to selectively engage the right coronary ostium. Right coronary angiography was performed in different angiographic projections. The [place] Varina catheter was manipulated under fluoroscopy to selectively engaged the left coronary ostium. Left coronary angioplasty was performed in different angiographic projections. Catheter was removed over the wire. Radial sheath was flushed. Decision was made to proceed with intervention of RCA and LAD HEMODYNAMICS: Aortic Pressure: 121/70 mmHg. LV pressure: 114/10 mmHg. LVEDP 14 mmHg. There was no significant gradient across the aortic valve. SELECTIVE CORONARY ARTERIOGRAPHY: LEFT MAIN: The left main is short and large caliber vessel. It bifurcates into the LAD and circumflex. Left main appears angiographically normal. LEFT ANTERIOR DESCENDING CORONARY ARTERY: LAD is a large caliber vessel which wraps around to the apex. Proximal LAD has a hazy eccentric 80% stenosis, EDWIGE- 3 flow. Mid and distal LAD is otherwise patent with mild luminal irregularities. Trace to small diagonal branches which are angiographically patent. LEFT CIRCUMFLEX CORONARY ARTERY: It is nondominant vessel. Left circumflex is a moderate caliber vessel. It is angiographically patent with mild blood irregularities. It gives rise to OM branch which is angiographically patent. RIGHT CORONARY ARTERY: Dominant vessel. The right coronary artery is a large caliber vessel. Proximal RCA is angiographically patent. Mid RCA has a focal 99% occlusion with distal EDWIGE-3 flow. Distal RCA is angiographically patent which bifurcates into PDA and PL branch which are patent. IMPRESSION: 99% mid RCA stenosis EDWIGE-3 flow 80% eccentric proximal LAD stenosis EDWIGE-3 flow Mild luminal irregularities otherwise Normal LVEDP PLAN: Plan for PCI of RCA and LAD with Dr. Larry. Further recommendations to follow Performing Physician Yordy Dunn MD, FACC, RPVI Thank you for allowing [facility] to participate in this patient's care. Feel free to reach out in case of any followup questions.
--- NOTE | 2024-06-25 16:37 | XR ---
EXAMINATION TYPE: XR chest 1V portable DATE OF EXAM: 06/25/2024 4:32 PM CLINICAL INDICATION: Female, 69 years old with history of post et tube adjustment; [facility] COMPARISON: Chest radiographs from same day. TECHNIQUE: XR chest 1V portable Frontal view of the chest. FINDINGS: Lungs/Pleura: T left upper lung airspace opacities. Here is no evidence of pleural effusion, focal co nsolidation, or pneumothorax. Pulmonary vascularity: Unremarkable. Heart/mediastinum: Cardiomediastinal silhouette is unremarkable. Musculoskeletal: No acute osseous pathology. Other findings: None Lines/Tubes: Endotracheal tube with distal tip 1.6 cm above the eri. Nasogastric tube distal side-port in the distal esophagus. IMPRESSION: 1. Nasogastric tube with side-port in the distal esophagus and advancement of 7 submitted images rec ommended for optimal placement. 2. Endotracheal tube now in appropriate position. 3. Left upper lung airspace opacities. [facility], , 06/25/2024 4:34 PM
--- NOTE | 2024-06-25 17:54 | CT ---
EXAMINATION TYPE: CT angio head neck CT DLP: 334 mGycm, Automated exposure control for dose reduction was used. DATE OF EXAM: 06/25/2024 4:40 PM COMPARISON: 06/25/2024. CLINICAL INDICATION: Female, 69 years old with history of STROKE; TECHNIQUE: Axially acquired helical CT angiogram of the head and neck was obtained with contrast. Axi al images are supplemented with 3D reconstructions and MIP images which were post-processed at an in dependent workstation. NASCET criteria used. Contrast used: 65cc iso 370 injected. Oral contrast used: None. FINDINGS: CTA HEAD: No evidence of acute intracranial hemorrhage, mass effect, or midline shift. The ventricles, sulci, a nd cisterns are unremarkable. The visualized portions of the internal carotid arteries, middle cerebral arteries, anterior cerebral arteries, and posterior cerebral arteries are patent. The basilar and vertebral arteries are patent. CTA NECK: Right Carotid System: The common carotid artery and external carotid artery are patent. The carotid bifurcation demonstrate s no evidence of hemodynamically significant stenosis. The remaining portions of the internal carotid artery demonstrate normal size without significant narrowing. Left Carotid System: The common carotid artery and external carotid artery are patent. The carotid bifurcation demonstrate s no evidence of hemodynamically significant stenosis. The remaining portions of the internal carotid artery demonstrate normal size without significant narrowing. Vertebral arteries are patent without evidence hemodynamically significant stenosis. There is a three-vessel aortic arch. The origins of the great vessels are patent. No evidence of hemo dynamically significant stenosis. Upper thorax: Atelectasis in the left upper lobe. IMPRESSION: 1. No evidence of dissection of the cervical internal carotid arteries or vertebral arteries or any e vidence of significant stenosis at the carotid bifurcations. 2. No evidence of intracranial high-grade stenosis or intracranial aneurysm. [facility], , 06/25/2024 5:51 PM
[2024-06-25] MEDS: CLEVIDIPINE BUTYRATE 25 MG in EMPTY BAG 1 BAG IV SCH (18:11)
[2024-06-25] MEDS: SODIUM CHLORIDE 0.9% 1,000 ML IV SCH (18:11)
--- NOTE | 2024-06-25 19:19 | P.CNNES ---
History of Present Illness Consult date: 06/25/24 Requesting physician: Akil David Reason for Consult: confusion s/p stent placement History of Present Illness: Patient is a 69-year-old female who came to the hospital by ambulance early this morning 3:31 AM for chest pain. Patient had elevated cardiac enzymes with troponin 0.079. It went up to 0.138. CBC was normal, PT PTT normal. Electrolytes normal. Renal, hepatic panel normal. Patient's vitals on arrival was blood pressure 119/82, pulse rate 90, temperature 98.0. Patient was started on heparin drip. Patient was taken to cardiac catheterization, which revealed 99% mid RCA stenosis, 80% proximal LAD stenosis mid luminal irregularities otherwise. Patient subsequently underwent stenting to the RCA and LAD. After the procedure and was almost completed, patient's blood pressure acutely short up to 200 range, which has been completely normal previously. Patient's eyes were open, staring at the ceiling, not responding to commands. Patient become acutely agitated, not responding, combative trying to pull all guidewires. She was unable to redirect or follow commands. Patient was moving all 4 extremities very equally without any motor deficits. Patient had received Brilinta loading dose and also heparin bolus of 6500 units prior to the procedure. Stroke was activated at 2:44 PM. Patient's NIH stroke scale documented was 6. As patient was not calming down, patient has to be intubated for airway protection at 3:30 PM and for performing the neuroimaging procedure. 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 Moderate patchy burden of chronic small vessel ischemic disease. CTA of head and neck was done, which revealed no evidence of dissection of the cervical internal carotid arteries or vertebral arteries or any evidence of significant stenosis at the carotid bifurcation. No evidence of intracranial high-grade stenosis or int racranial aneurysm. Stroke team discussed case with Dr. Garcia, and they did not recommend any intervention, or TNK. Permissive hypertension was recommended. Patient was transferred to ICU. At present patient is on mechanical ventilation, with propofol running at 50 mcg/kg/min. Examination is very limited. Review of Systems ROS unobtainable: due to endotracheal tube, due to mental status Past Medical History Past Medical History: Hypertension Additional Past Medical History / Comment(s): osteoporosis History of Any Multi-Drug Resistant Organisms: None Reported Past Surgical History: Section Past Psychological History: No Psychological Hx Reported Smoking Status: Never smoker Past Alcohol Use History: Occasional Past Drug Use History: None Reported Medications and Allergies Home Medications Medication Instructions Recorded Confirmed Type No Known Home Medications 06/25/24 06/25/24 History Allergies Allergy/AdvReac Type Severity Reaction Status Date / Time No Known Allergies Allergy Verified 06/25/24 07:31 Physical Examination - Vital Signs Vital Signs: Vital Signs Temp Pulse Pulse Resp BP BP Pulse Ox 06/25/24 16:33 06/25/24 16:00 06/25/24 15:35 06/25/24 11:36 64 16 119/82 96 06/25/24 09:00 55 L 14 150/90 96 06/25/24 08:00 61 16 149/82 96 06/25/24 06:32 147/96 06/25/24 05:41 65 16 164/101 94 L 06/25/24 03:32 98.6 F 63 16 153/88 95 FiO2 06/25/24 16:33 50 06/25/24 16:00 100 06/25/24 15:35 100 06/25/24 11:36 06/25/24 09:00 06/25/24 08:00 06/25/24 06:32 06/25/24 05:41 06/25/24 03:32 Intake and Output 06/25/24 06/25/24 06/25/24 06:59 14:59 22:59 Intake Total 362.023 Balance 362.023 Intake: IV 310 Intake, IV Titration 52.023 Amount Heparin Sod,Pork in 0.45% 52.023 NaCl 25,000 unit In 0.45 % NaCl 1 250ml.bag @ 12 UNITS/KG/HR 7.784 mls/hr IV .Q24H [facility] Rx#: [id number] Other: Weight 64.864 kg Patient is an elderly female, who is intubated, sedated on propofol 50 mcg/kg/min. Patient is intubated, sedated. On cranial nerve examination, pupils are equal, round and reacting to light, oculocephalics are absent. Corneals mildly present. Visual mckinney cannot be tested. Patient does have gag and cough reflex. On muscle strength testing, patient is not following any commands. Patient does not withdraw to painful stimuli, and has some posturing noted with both upper extremities periodically. Deep tendon reflexes are symmetric 2 at the biceps, 2 brachioradialis, 1+ at the knees and plantars are flat bilaterally. Sensory to touch not able to be assessed, but patient slightly withdraws lower extremities to painful stimuli. In the upper limbs, patient slightly postures with shoulder shrugging bilaterally. Cerebellar function cannot be tested. Tone and bulk of muscles normal. Gait deferred.. On general examination, there is no carotid bruit or murmur, S1-S2 audible. Chest is clear on consultation. Abdomen is soft nontender. No organomegaly, bowel sounds present. Peripheral pulses are present. No peripheral edema. Results - Laboratory Findings CBC and BMP: 06/25/24 03:53 06/25/24 03:53 Abnormal Lab Findings: Abnormal Labs 06/25/24 06/25/24 06/25/24 03:53 03:53 07:03 APTT Glucose 158 H POC Glucose (mg/dL) Calcium 11.2 H Alkaline Phosphatase 130 H Troponin I 0.079 H* 0.138 H* 06/25/24 06/25/24 06/25/24 11:08 11:08 16:00 APTT 53.2 H Glucose POC Glucose (mg/dL) 134 H Calcium Alkaline Phosphatase Troponin I 0.205 H* Assessment and Plan Assessment: * Acute onset of encephalopathy at the end of cardiac catheterization/cardiac stenting, with acute rise in blood pressure, aphasia, agitation but otherwise no obvious lateralizing symptoms noted. Acute hypertensive encephalopathy, stroke/TIA or other metabolic causes are in the differential. No large vessel occlusion noted on CTA. * Acute non-STEMI * Status post cardiac stenting to the RCA and LAD. * Hypertension Plan: * Patient's NIH stroke scale at this time difficult to assess because of being on sedation and intubated. Initially stroke team reported NIH stroke scale of 6. No large vessel occlusion noted on CTA. Neurointervention recommended no TNK or thrombectomy. Patient also appears to be high risk for TNK because of receiving heparin, loading dose of Brilinta, recent cardiac procedure and nonlateralizing symptoms. I discussed at length with Dr. Dunn and Dr. David, who also agreed with patient being high risk. * 2-D echo revealed preserved LV systolic function without any wall motion abnormalities. LVEF 60 to 65%. Mildly increased septal wall thickness. Prominent posterior pericardial stripe. Normal left atrial size. * CTA of head and neck was done, which revealed no evidence of dissection of the cervical internal carotid arteries or vertebral arteries or any evidence of significant stenosis at the carotid bifurcation. No evidence of intracranial high-grade stenosis or intracranial aneurysm. * Fasting a.m. lipid panel. Patient started on Lipitor 80 mg daily. * Hemoglobin A1c 6.0 * Permissive hypertension for next 24-48 hours, although patient may need limitation of blood pressure to 180 systolic maximal from cardiac standpoint. * Patient has received loading dose of Brilinta 180 mg, and will be started on Brilinta 90 mg twice daily and aspirin 81 mg daily. * Neuro checks every 1 hour. * Telemetry monitoring rule out any arrhythmia * PT, OT, speech therapy, when patient becomes more awake. * DVT prophylaxis: Heparin 5000 units subcu every 8 hours * Neurology will continue to follow. Thank you for the consult. Time with Patient: Greater than 30
[2024-06-25] MEDS: ATORVASTATIN 80 MG TAB PO SCH (20:34)
[2024-06-25] MEDS: TICAGRELOR 90 MG TAB PO SCH (20:34)
[2024-06-25] MEDS: CHLORHEXIDINE GLUCONATE 15 ML CUP MUCOUS MEM SCH (20:34)
[2024-06-25] MEDS: MORPHINE SULFATE 2 MG/ML SYRINGE IVP PRN (20:45)
--- NOTE | 2024-06-25 21:18 | P.PCN ---
Date of Procedure: 06/25/24 Operative Findings: Percutaneous coronary intervention Performing physician Akil David MD Procedure performed 1. Successful stenting of the mid RCA using 5.0 x 18 mm Xience TATA with excellent angiographic results and reduction of stenosis from 99% to 0% 2. Successful stenting of the proximal LAD using 4.0 x 33 mm Xience TATA with excellent angiographic results and reduction of stenosis from 80% to 0% 3. Adjunctive use of IVUS Indication Acute non-ST elevation myocardial infarction. Please refer to diagnostic heart catheterization was performed by Dr. Dunn earlier today. Complication Change in mental status concerning for stroke Procedure duration About 60 minutes Procedure description After diagnostic heart catheterization was performed the decision was made toward percutaneous coronary intervention of the RCA and LAD. Anticoagulation was initiated using heparin with continuous ACT monitoring. Subsequently I did engage the RCA using JR4 guiding catheter. The RCA was wired using a run- through wire. Subsequently I did intravascular ultrasound which showed a diameter of 0.5 mm. Predilatation was performed using 3.5 mm balloon before I deployed 5.0 x 18 mm stent where the stent was positioned under fluoroscopy guidance and deployed under fluoroscopy guidance with the following angiogram showing that we lost the acute marginal branch of the RCA with excellent angiographic results of the RCA with EDWIGE-3 flow. Intravascular ultrasound IVUS was performed again and showed that the stent was well opposed and well- expanded. At that point I decided to intervene on the LAD. Anticoagulation continued using heparin with continuous ACT monitoring. Subsequently I did engage the left main using JL 3.5 guiding catheter. I did wire the LAD using a run-through wire as well. Subsequently I did intravascular ultrasound which showed a diameter between 3.5 to 4 mm. At that point I did predilatation using a 3 mm balloon before a deployed 4.0 x 33 mm Xience TATA were the stent again was positioned under fluoroscopy guidance and deployed under fluoroscopy guidance and postdilated using a 4 mm NC balloon. By the end of postdilatation the patient started having significant change in mental status associated with agitation as a matter fact she moved her right arm and the wire and guiding catheter came out completely. Unfortunately we had to stop the procedure. At the the end of the procedure the angiogram showed occluded angiographic results in the LAD but no IVUS was performed because of the patient agitation and the need to call a code stroke and take the patient to the CT scanner. Anyway the patient told everything else by the motion of the right arm and we could not keep her down to reengage the right coronary artery and also urgency to perform a CT scan so the procedure was completed at that point Postprocedure management Dual antiplatelet therapy after ruling intracranial bleeding Aggressive cholesterol control Code stroke to be called Further recommendation to follow
[2024-06-26 04:48] LABS: ABG Base Excess -4.2 mmol/L; ABG HCO3 21 mmol/L (21-25); ABG PCO2 38 mmHg (35-45); ABG PH 7.35 (7.35-7.45); ABG PO2 222 mmHg (83-108); ABG TCO2 22 mmol/L (19-24); Allen Test Performed? Yes
[2024-06-26 06:05] LABS: Basophils % (A) 0 %; Eosinophils # (A) 0.1 k/uL (0-0.7); Eosinophils % (A) 1 %; HCT 43.3 % (34.0-46.0); HGB 14.7 gm/dL (11.4-16.0); Lymphocytes # (A) 1.1 k/uL (1.0-4.8); Lymphocytes % (A) 6 %; MCH 30.4 pg (25.0-35.0); MCV 89.3 fL (80.0-100.0); Mean Platelet Volume 8.8; Monocytes # (A) 0.9 k/uL (0-1.0); Monocytes % (A) 5 %; Neutrophils # (A) 15.1 k/uL (1.3-7.7); Neutrophils % (A) 87 %; Platelet Count 215 k/uL (150-450); RBC 4.85 m/uL (3.80-5.40); RDW 13.4 % (11.5-15.5); WBC 17.4 k/uL (3.8-10.6)
[2024-06-26 06:08] LABS: Glucose,Whole Blood 214 mg/dL (70-110)
[2024-06-26 06:20] LABS: African American GFR (CKD) 65 (>60 ml/min/1.73 sqM); Anion Gap 16 mmol/L; Blood Urea Nitrogen 19 mg/dL (7-17); Calcium 11.2 mg/dL (8.4-10.2); Carbon Dioxide 17 mmol/L (22-30); Chloride 108 mmol/L (98-107); Glucose 205 mg/dL (74-99); Non-African American GFR(CKD) 56 (>60 ml/min/1.73 sqM); Potassium 3.6 mmol/L (3.5-5.1); Sodium 141 mmol/L (137-145)
[2024-06-26 06:24] LABS: INR 0.9 (<1.2); Prothrombin Time 10.5 sec (10.0-12.5)
[2024-06-26] MEDS ORDERED: Potassium Replacement Protocol 1 EACH MISC MISCELLANE PRN (06:56)
[2024-06-26] MEDS ORDERED: HEPARIN SODIUM,PORCINE (1 ML) 2,500 UNIT in SODIUM CHLORIDE 0.9% 250 ML IRRIGATION PRN (07:00)
[2024-06-26] MEDS ORDERED: HEPARIN SODIUM,PORCINE 10,000 UNIT in SODIUM CHLORIDE 0.9% 1,000 ML IRRIGATION PRN (07:00)
[2024-06-26] MEDS: POTASSIUM BICARBONATE/CIT AC 20 MEQ TABLET.EFF NG-TUBE SCH (07:04)
--- NOTE | 2024-06-26 07:41 | XR ---
EXAMINATION TYPE: XR chest 1V portable DATE OF EXAM: 06/26/2024 COMPARISON: 06/25/2024 INDICATION: Tube placement TECHNIQUE: Single frontal view of the chest is obtained. FINDINGS: The heart size is normal. The pulmonary vasculature is normal. The lungs are clear. Previous left basilar atelectasis has resolved. Endotracheal tube tip is above the eri. Nasogastric tube tip is within the left upper quadrant of the abdomen. IMPRESSION: 1. No acute pulmonary process. 2. Lines and catheters discussed above. [facility], , 06/26/2024 7:38 AM
[2024-06-26] MEDS: HEPARIN SODIUM,PORCINE 5,000 UNIT/ML 1 ML VIAL SQ SCH (08:01)
[2024-06-26] MEDS: ASPIRIN 81 MG PO SCH (08:01)
--- NOTE | 2024-06-26 10:50 | P.CNPUL ---
History of Present Illness Consult date: 06/26/24 Requesting physician: Akil David Reason for consult: other Chief complaint: ICU management. History of present illness: Pulmonary consult dated June 26, 2024. 69-year-old female who presented to the emergency department, on June 25. She apparently came in with abdominal discomfort, as well as chest pressure. Her symptoms have been apparently going on for a number of days, prior to admission. The patient was felt to have coronary syndrome, taken to the catheterization laboratory yesterday. The patient had stents placed in her right coronary artery, and LAD. Sometime during the procedure, the patient apparently became quite hypertensive, and had a change in her neurologic status. The patient was thought to maybe have a stroke syndrome, and she was intubated, so that she could have a CT scan of the brain, which was negative. I was called by the lead nurse, who asked me to consult on this patient, for ICU management. The patient CT scan was negative. The patient also had a negative angiography CT. This morning, she is on the ventilator, with settings of volume assist-control, rate 14, tidal volume 400, FiO2 35% PEEP of 5. Blood gases on 50% show pO2 222, pCO2 38, and pH is 7.35. The patient is currently on propofol at 35 mcg/kg/min, and saline at 10 cc an hour. We are going to give the patient a daily interruption of sedation, spontaneous breathing trial today. White count 17.4, hemoglobin 14.7, hematocrit 43.3, and platelet count 215,000. Sodium 141, potassium 3.6, chlorides 108, CO2 17, anion gap 16, BUN 19, creatinine 1.03. Glucose is 214. Calcium 11.2. Chest x-ray was unremarkable. Review of Systems REVIEW OF SYSTEMS: CONSTITUTIONAL: [Negative.] NEUROLOGIC: Acute neurologic changes, during catheterization. HEENT: [ Negative.] CARDIAC: Acute hypertensive urgency/emergency during catheterization. PULMONARY: [Negative.] GI: [Negative.] : [Negative.] RHEUMATOLOGIC: [ Negative.] IMMUNOLOGIC: [ Negative.] ENDOCRINE: [Negative. ] DERMATOLOGIC: [Negative.] Past Medical History Past Medical History: Hypertension Additional Past Medical History / Comment(s): osteoporosis History of Any Multi-Drug Resistant Organisms: None Reported Past Surgical History: Section Past Anesthesia/Blood Transfusion Reactions: No Reported Reaction Past Psychological History: No Psychological Hx Reported Smoking Status: Never smoker Past Alcohol Use History: Occasional Past Drug Use History: None Reported Medications and Allergies Home Medications Medication Instructions Recorded Confirmed Type No Known Home Medications 06/25/24 06/25/24 History Allergies Allergy/AdvReac Type Severity Reaction Status Date / Time No Known Allergies Allergy Verified 06/25/24 07:31 Physical Exam Osteopathic Statement: *. No significant issues noted on an osteopathic structural exam other than those noted in the History and Physical/Consult. Vitals: Vital Signs Temp Pulse Pulse Resp BP BP Pulse Ox 06/26/24 10:00 126 H 20 123/74 94 L 06/26/24 09:10 06/26/24 09:09 116 H 06/26/24 09:00 115 H 16 122/79 98 06/26/24 08:30 114 H 14 124/73 97 06/26/24 08:00 98.9 F 116 H 15 132/81 97 06/26/24 07:50 06/26/24 07:30 116 H 15 133/80 99 06/26/24 07:00 117 H 16 126/73 99 06/26/24 06:45 117 H 16 126/77 99 06/26/24 06:30 117 H 15 130/78 99 06/26/24 06:15 117 H 15 130/71 100 06/26/24 06:00 116 H 19 122/67 98 06/26/24 05:45 114 H 15 137/77 98 06/26/24 05:30 112 H 15 116/69 99 06/26/24 05:15 110 H 16 116/66 98 06/26/24 05:00 111 H 16 125/72 98 06/26/24 04:50 100 06/26/24 04:49 06/26/24 04:45 106 H 14 114/72 98 06/26/24 04:34 06/26/24 04:30 107 H 15 115/69 98 06/26/24 04:15 109 H 15 116/70 98 06/26/24 04:00 98.9 F 109 H 15 126/73 97 06/26/24 03:45 111 H 16 134/79 98 06/26/24 03:30 109 H 15 121/71 98 06/26/24 03:15 109 H 16 121/73 97 06/26/24 03:00 110 H 18 122/72 98 06/26/24 02:45 109 H 16 128/76 97 06/26/24 02:30 112 H 17 126/74 98 06/26/24 02:15 112 H 15 123/73 98 06/26/24 02:00 114 H 16 124/73 98 06/26/24 01:45 114 H 16 117/78 98 06/26/24 01:30 114 H 18 116/72 98 06/26/24 01:15 115 H 17 114/62 98 06/26/24 01:00 116 H 21 118/76 95 06/26/24 00:50 104 H 06/26/24 00:45 112 H 17 135/81 98 06/26/24 00:35 109 H 06/26/24 00:30 108 H 17 131/80 98 06/26/24 00:18 06/26/24 00:15 108 H 16 128/85 98 06/26/24 00:00 99.8 F H 106 H 15 135/81 98 06/25/24 23:45 107 H 15 132/81 98 06/25/24 23:30 106 H 15 126/77 98 06/25/24 23:20 108 H 17 123/74 98 06/25/24 23:10 109 H 17 123/72 98 06/25/24 23:00 107 H 14 98 06/25/24 22:50 111 H 16 98 06/25/24 22:40 111 H 15 98 06/25/24 22:30 111 H 15 99 06/25/24 22:20 110 H 17 98 06/25/24 22:10 112 H 14 99 06/25/24 22:00 112 H 15 99 06/25/24 21:50 112 H 14 99 06/25/24 21:40 111 H 16 99 06/25/24 21:30 112 H 16 99 06/25/24 21:20 111 H 15 99 06/25/24 21:10 109 H 15 155/107 99 06/25/24 21:00 110 H 14 99 06/25/24 20:50 115 H 14 99 06/25/24 20:40 110 H 14 99 06/25/24 20:30 111 H 14 99 06/25/24 20:20 109 H 14 99 06/25/24 20:10 104 H 14 99 09/19/24 20:08 104 H 06/25/24 20:00 100.4 F H 105 H 14 99 06/25/24 19:54 104 H 06/25/24 19:50 105 H 14 98 06/25/24 19:47 06/25/24 19:40 104 H 14 99 06/25/24 19:30 105 H 14 99 06/25/24 19:20 101 H 14 99 06/25/24 19:10 105 H 14 99 06/25/24 19:00 101 H 14 99 06/25/24 18:50 98 12 155/107 99 06/25/24 18:40 97 15 99 06/25/24 18:30 96 21 155/107 98 06/25/24 18:20 94 14 99 06/25/24 18:10 92 14 155/107 99 06/25/24 18:00 91 9 L 155/107 100 06/25/24 17:50 90 10 L 155/107 99 06/25/24 17:40 89 7 L 155/107 99 06/25/24 17:30 90 8 L 155/107 99 06/25/24 17:20 84 7 L 155/107 99 06/25/24 17:10 79 10 L 155/107 98 06/25/24 17:00 77 7 L 155/107 100 06/25/24 16:50 77 13 155/107 97 06/25/24 16:40 78 5 L 155/107 98 06/25/24 16:33 06/25/24 16:30 80 16 155/107 100 06/25/24 16:20 81 23 155/107 99 06/25/24 16:10 93 23 177/127 06/25/24 16:05 90 22 177/127 06/25/24 16:00 98 F 14 06/25/24 15:45 98 F 06/25/24 15:35 06/25/24 14:30 119/82 06/25/24 14:20 119/82 06/25/24 14:10 119/82 06/25/24 14:00 119/82 06/25/24 13:50 119/82 06/25/24 13:40 119/82 06/25/24 13:30 119/82 06/25/24 13:20 119/82 06/25/24 13:10 119/82 06/25/24 13:00 119/82 06/25/24 12:50 64 18 119/82 06/25/24 12:40 63 13 119/82 06/25/24 12:30 63 16 119/82 06/25/24 12:20 62 15 119/82 06/25/24 12:10 63 13 119/82 06/25/24 12:00 63 14 119/82 06/25/24 11:50 61 11 L 119/82 06/25/24 11:40 62 32 H 119/82 06/25/24 11:36 64 16 119/82 96 06/25/24 11:30 64 9 L 119/82 06/25/24 11:20 153/90 06/25/24 11:10 62 12 153/90 06/25/24 11:00 60 18 155/104 06/25/24 10:50 58 L 21 155/104 FiO2 06/26/24 10:00 06/26/24 09:10 35 06/26/24 09:09 06/26/24 09:00 06/26/24 08:30 06/26/24 08:00 35 06/26/24 07:50 35 06/26/24 07:30 06/26/24 07:00 06/26/24 06:45 06/26/24 06:30 06/26/24 06:15 06/26/24 06:00 35 06/26/24 05:45 06/26/24 05:30 06/26/24 05:15 06/26/24 05:00 35 06/26/24 04:50 06/26/24 04:49 35 06/26/24 04:45 06/26/24 04:34 50 06/26/24 04:30 06/26/24 04:15 06/26/24 04:00 50 06/26/24 03:45 06/26/24 03:30 06/26/24 03:15 06/26/24 03:00 06/26/24 02:45 06/26/24 02:30 06/26/24 02:15 06/26/24 02:00 06/26/24 01:45 06/26/24 01:30 06/26/24 01:15 06/26/24 01:00 06/26/24 00:50 06/26/24 00:45 06/26/24 00:35 06/26/24 00:30 06/26/24 00:18 50 06/26/24 00:15 06/26/24 00:00 50 06/25/24 23:45 06/25/24 23:30 06/25/24 23:20 06/25/24 23:10 06/25/24 23:00 06/25/24 22:50 06/25/24 22:40 06/25/24 22:30 06/25/24 22:20 06/25/24 22:10 06/25/24 22:00 06/25/24 21:50 06/25/24 21:40 06/25/24 21:30 06/25/24 21:20 06/25/24 21:10 06/25/24 21:00 06/25/24 20:50 06/25/24 20:40 06/25/24 20:30 06/25/24 20:20 06/25/24 20:10 06/25/24 20:08 06/25/24 20:00 50 06/25/24 19:54 06/25/24 19:50 06/25/24 19:47 50 06/25/24 19:40 06/25/24 19:30 06/25/24 19:20 06/25/24 19:10 06/25/24 19:00 06/25/24 18:50 06/25/24 18:40 06/25/24 18:30 06/25/24 18:20 06/25/24 18:10 06/25/24 18:00 06/25/24 17:50 06/25/24 17:40 06/25/24 17:30 06/25/24 17:20 06/25/24 17:10 06/25/24 17:00 06/25/24 16:50 06/25/24 16:40 06/25/24 16:33 50 06/25/24 16:30 06/25/24 16:20 06/25/24 16:10 06/25/24 16:05 06/25/24 16:00 50 06/25/24 15:45 06/25/24 15:35 100 06/25/24 14:30 06/25/24 14:20 06/25/24 14:10 06/25/24 14:00 06/25/24 13:50 06/25/24 13:40 06/25/24 13:30 06/25/24 13:20 06/25/24 13:10 06/25/24 13:00 06/25/24 12:50 06/25/24 12:40 06/25/24 12:30 06/25/24 12:20 06/25/24 12:10 06/25/24 12:00 06/25/24 11:50 06/25/24 11:40 06/25/24 11:36 06/25/24 11:30 06/25/24 11:20 06/25/24 11:10 06/25/24 11:00 06/25/24 10:50 Intake and Output 06/25/24 06/26/24 06/26/24 22:59 06:59 14:59 Intake Total 393.240 181.600 129.444 Output Total 3130 250 150 Balance -2736.760 -68.400 -20.556 Intake: IV 80 40 0.9 NS KVO 80 40 Intake, IV Titration 393.240 101.600 89.444 Amount Clevidipine Butyrate 25 49.133 1.600 mg In Empty Bag 1 bag @ 1 MG/HR 2 mls/hr IV .Q24H [facility] Rx#:[id number] Sodium Chloride 0.9% 1, 300 000 ml @ 75 mls/hr IV . [id number] [facility] Rx#:[id number] propofoL 1,000 mg In 44.107 100.000 89.444 Empty Bag 1 bag @ 15 MCG/ KG/MIN 5.838 mls/hr IV . [id number] [facility] Rx#:[id number] Output: Urine 3130 250 150 Other: Voiding Method Indwelling Catheter Indwelling Catheter Indwelling Catheter No acute distress, with propofol, with an orally placed endotracheal tube and NG tube. HEENT examination is grossly unremarkable. Neck supple. Full range of motion. No adenopathy thyromegaly or neck vein distention. Cardiovascular examination reveals regular rhythm rate. S1-S2 normal. No S3 or S4. No discernible murmur noted. Heart rate 116 bpm. Lungs reveal clear breath sounds. Breath sounds are equal bilaterally. No adventitious lung sounds including wheezes rhonchi or crackles. Abdomen soft bowel sounds are heard. No masses or tenderness. Extremities are intact. No cyanosis clubbing or edema. Skin is without rash or lesion. Neurologic examination cannot be evaluated at this time. Results - Laboratory Findings CBC and BMP: 06/26/24 05:53 06/26/24 05:53 ABG ABG pH 7.35 (7.35-7.45) 06/26/24 04:40 ABG pCO2 38 mmHg (35-45) 06/26/24 04:40 ABG pO2 222 mmHg (83-108) H 06/26/24 04:40 ABG O2 Saturation 100.0 % (94-97) H 06/26/24 04:40 PT/INR, D-dimer PT 10.5 sec (10.0-12.5) 06/26/24 05:53 INR 0.9 (<1.2) 06/26/24 05:53 D-Dimer 0.40 mg/L FEU (<0.60) 06/25/24 11:08 Abnormal lab findings: Abnormal Labs 06/25/24 06/25/24 06/25/24 03:53 03:53 07:03 WBC Neutrophils # APTT ABG pO2 ABG Total CO2 ABG O2 Saturation Hemoglobin Chloride Carbon Dioxide BUN Glucose 158 H POC Glucose (mg/dL) Calcium 11.2 H Alkaline Phosphatase 130 H Troponin I 0.079 H* 0.138 H* Triglycerides Cholesterol VLDL Cholesterol, Calc HDL Cholesterol 06/25/24 06/25/24 06/25/24 11:08 11:08 16:00 WBC Neutrophils # APTT 53.2 H ABG pO2 ABG Total CO2 ABG O2 Saturation Hemoglobin Chloride Carbon Dioxide BUN Glucose POC Glucose (mg/dL) 134 H Calcium Alkaline Phosphatase Troponin I 0.205 H* Triglycerides Cholesterol VLDL Cholesterol, Calc HDL Cholesterol 06/25/24 06/25/24 06/26/24 16:30 18:28 04:40 WBC Neutrophils # APTT 32.9 H ABG pO2 333 H 222 H ABG Total CO2 25 H ABG O2 Saturation 100.0 H 100.0 H Hemoglobin 16.2 H Chloride Carbon Dioxide BUN Glucose POC Glucose (mg/dL) Calcium Alkaline Phosphatase Troponin I Triglycerides Cholesterol VLDL Cholesterol, Calc HDL Cholesterol 06/26/24 06/26/24 06/26/24 05:53 05:53 06:07 WBC 17.4 H Neutrophils # 15.1 H APTT ABG pO2 ABG Total CO2 ABG O2 Saturation Hemoglobin Chloride 108 H Carbon Dioxide 17 L BUN 19 H Glucose 205 H POC Glucose (mg/dL) 214 H Calcium 11.2 H Alkaline Phosphatase Troponin I Triglycerides 580.00 H Cholesterol 243.00 H VLDL Cholesterol, Calc 116.00 H HDL Cholesterol 33.30 L - Diagnostic Findings Chest x-ray: image reviewed Assessment and Plan Assessment: Acute hypertension and neurologic changes, during cardiac catheterization, requiring intubation and mechanical ventilation for brain CT. Routine postoperative ventilator management. S/P stent placements, in the right coronary artery and LAD. History of hypertension. History of osteoporosis. Plan: Plan dated June 26, 2024. The patient has excellent gas exchange, and oxygenation on the ventilator. The patient is on propofol 35 mcg/kg/min. The patient is also getting saline at 10 cc an hour. Labs, x-rays, and medications are reviewed. The patient will have a daily interruption of sedation, and a spontaneous breathing trial. The patient's ventilator weaning parameters are excellent, including a negative expiratory force of 35, vital capacity of 1.35 L, respiratory rate 19, tidal volume of 465 mL, minute volume of 10.5 L/min, and a rapid shallow breathing index of 17. If the patient had a positive cuff leak, she can be extubated. We will continue to follow. Time with Patient: Greater than 30
[2024-06-26 11:48] LABS: Glucose,Whole Blood 179 mg/dL (70-110)
--- NOTE | 2024-06-26 12:42 | P.PN ---
Subjective Progress Note Date: 06/26/24 patient 69-year-old lady with no significant past medical history brought in the ER because of chest pain. Patient stated that she has been having intermittent chest pain for the last 10 days. Chest pain is like a constant pressure central nonradiating, no aggravating or relieving factor associated with this chest pressure, almost feels like indigestion. There was no complaint of shortness of breath. Denies any palpitation. There is no complaint orthopnea or PND. Denies any fever or chills. Patient went to see her PCP yesterday who did an EKG and gave her some nitro that relieved her pain. Overnight patient was having more of this chest pressure associated with nausea and vomiting at the ti me patient decided come to the ER. Initial lab work done in the ER showed WBC 7.1, hemoglobin 14.2, platelet count 196, sodium 140, potassium 4.1 BUN 17, creatinine 0.74, calcium 11.2, troponin 0.079 EKG done in the ER showed heart rate of 63 , no ST segment elevation or depression seen, Q waves in V1 V2 no T-wave inversions seen. Chest x-ray done in the ER showed no acute cardiopulmonary process Patient admitted to internal medicine servicepatient 69-year-old lady with no significant past medical history brought in the ER because of chest pain. Patient stated that she has been having intermittent chest pain for the last 10 days. Chest pain is like a constant pressure central nonradiating, no aggravating or relieving factor associated with this chest pressure, almost feels like indigestion. There was no complaint of shortness of breath. Denies any palpitation. There is no complaint orthopnea or PND. Denies any fever or chills. Patient went to see her PCP yesterday who did an EKG and gave her some nitro that relieved her pain. Overnight patient was having more of this chest pressure associated with nausea and vomiting at the time patient decided come to the ER. Initial lab work done in the ER showed WBC 7.1, hemoglobin 14.2, platelet count 196, sodium 140, potassium 4.1 BUN 17, creatinine 0.74, calcium 11.2, troponin 0.079 EKG done in the ER showed heart rate of 63 , no ST segment elevation or depression seen, Q waves in V1 V2 no T-wave inversions seen. Chest x-ray done in the ER showed no acute cardiopulmonary process Patient admitted to internal medicine service 06/26. Patient seen and examined. Patient underwent cardiac cath with Successful stenting of the mid RCA using 5.0 x 18 mm Xience TATA with excellent angiographic results and reduction of stenosis from 99% to 0%, Successful stenting of the proximal LAD using 4.0 x 33 mm Xience TATA with excellent ang iographic results and reduction of stenosis from 80% to 0% 2D echo done showed preserved LV systolic function without any wall motion of normalities. Post cath, patient became very agitated, patient had to be intubated and code stroke was called. Patient was extubated this morning. Currently doing much better REVIEW OF SYSTEMS: Denies any chest pain Denies shortness of breath. Following commands. PHYSICAL EXAMINATION: GENERAL: The patient is alert HEENT: Pupils are round and equally reacting to light. EOMI. No scleral icterus. No conjunctival pallor. Normocephalic, atraumatic. No pharyngeal erythema. No thyromegaly. CARDIOVASCULAR: S1 and S2 present. No murmurs, rubs, or gallops. PULMONARY: Chest is clear to auscultation, no wheezing or crackles. ABDOMEN: Soft, nontender, nondistended, normoactive bowel sounds. No palpable organomegaly. MUSCULOSKELETAL: No joint swelling or deformity. EXTREMITIES: No cyanosis, clubbing, or pedal edema. NEUROLOGICAL: Alert Assessment and plan Non-ST elevation NH Acute hypertensive encephalopathy Vent dependent respiratory failure hypertension Monitor vital signs Monitor CBC Monitor CMP Continue telemetry monitoring Continue vent management Permissive hypertension for the next 24 to 48 hours MRI brain ordered Status post cardiac cath with Successful stenting of the mid RCA using 5.0 x 18 mm Xience TATA with excellent angiographic results and reduction of stenosis from 99% to 0%, Successful stenting of the proximal LAD using 4.0 x 33 mm Xience TATA with excellent angiographic results and reduction of stenosis from 80% to 0% Continue aspirin, Brilinta, Lipitor Cardiology following Neurology following ICU following Labs and medication were reviewed.. Continue same treatment. Continue with symptomatic treatment. Resume home medication. Monitor labs and vitals. DVT and GI prophylaxis. Further recommendations as per clinical course of the patient Dictation was produced using [employer] dictation software. please excuse any grammatical, word or spelling errors. Objective - Vital Signs Vital signs: Vital Signs Temp 98.9 F 09/20/24 08:00 Pulse 116 H 06/26/24 09:09 Resp 16 06/26/24 09:00 BP 122/79 06/26/24 09:00 Pulse Ox 98 06/26/24 09:00 FiO2 35 06/26/24 09:10 Intake & Output 06/25/24 06/26/24 06/26/24 18:59 06:59 18:59 Intake Total 363.423 573.440 119.444 Output Total 2800 580 125 Balance -2436.577 -6.560 -5.556 Intake: IV 310 80 30 0.9 NS KVO 80 30 Intake, IV Titration 53.423 493.440 89.444 Amount Clevidipine Butyrate 25 1.4 49.333 mg In Empty Bag 1 bag @ 1 MG/HR 2 mls/hr IV .Q24H MARY Rx#:[id number] Heparin Sod,Pork in 0.45% 52.023 NaCl 25,000 unit In 0.45 % NaCl 1 250ml.bag @ 12 UNITS/KG/HR 7.784 mls/hr IV .Q24H MARY Rx#: [id number] Sodium Chloride 0.9% 1, 300 000 ml @ 75 mls/hr IV . [id number] MARY Rx#:[id number] propofoL 1,000 mg In 144.107 89.444 Empty Bag 1 bag @ 15 MCG/ KG/MIN 5.838 mls/hr IV . Q17H8M MARY Rx#:[id number] Output: Urine 2800 580 125 Other: Voiding Method Indwelling Catheter Indwelling Catheter Indwelling Catheter ABP, PAP, CO, CI - Last Documented Arterial Blood Pressure 139/59 - Labs CBC & Chem 7: 06/26/24 05:53 06/26/24 05:53 Labs: Abnormal Lab Results - Last 24 Hours (Table) 06/25/24 06/25/24 06/25/24 Range/Units 11:08 11:08 16:00 WBC (3.8-10.6) k/uL Neutrophils # (1.3-7.7) k/uL APTT 53.2 H (22.0-30.0) sec ABG pO2 (83-108) mmHg ABG Total CO2 (19-24) mmol/L ABG O2 Saturation (94-97) % Hemoglobin (11.4-16.0) gm/dL Chloride (98-107) mmol/L Carbon Dioxide (22-30) mmol/L BUN (7-17) mg/dL Glucose (74-99) mg/dL POC Glucose (mg/dL) 134 H (70-110) mg/dL Calcium (8.4-10.2) mg/dL Troponin I 0.205 H* (0.000-0.034) ng/mL 06/25/24 06/25/24 06/26/24 Range/Units 16:30 18:28 04:40 WBC (3.8-10.6) k/uL Neutrophils # (1.3-7.7) k/uL APTT 32.9 H (22.0-30.0) sec ABG pO2 333 H 222 H (83-108) mmHg ABG Total CO2 25 H (19-24) mmol/L ABG O2 Saturation 100.0 H 100.0 H (94-97) % Hemoglobin 16.2 H (11.4-16.0) gm/dL Chloride (98-107) mmol/L Carbon Dioxide (22-30) mmol/L BUN (7-17) mg/dL Glucose (74-99) mg/dL POC Glucose (mg/dL) (70-110) mg/dL Calcium (8.4-10.2) mg/dL Troponin I (0.000-0.034) ng/mL 06/26/24 06/26/24 06/26/24 Range/Units 05:53 05:53 06:07 WBC 17.4 H (3.8-10.6) k/uL Neutrophils # 15.1 H (1.3-7.7) k/uL APTT (22.0-30.0) sec ABG pO2 (83-108) mmHg ABG Total CO2 (19-24) mmol/L ABG O2 Saturation (94-97) % Hemoglobin (11.4-16.0) gm/dL Chloride 108 H (98-107) mmol/L Carbon Dioxide 17 L (22-30) mmol/L BUN 19 H (7-17) mg/dL Glucose 205 H (74-99) mg/dL POC Glucose (mg/dL) 214 H (70-110) mg/dL Calcium 11.2 H (8.4-10.2) mg/dL Troponin I (0.000-0.034) ng/mL
[2024-06-26] MEDS: ALPRAZolam 0.25 MG TAB PO PRN (14:28)
--- NOTE | 2024-06-26 15:40 | P.PN ---
Subjective Progress Note Date: 06/26/24 Patient was seen for a follow-up. Patient is extubated, laying in the bed. She appears tired. Patient's throat is sore from recent intubation. Patient is talking with a whispering voice, but is completely intact. Patient denies headache. Denies any focal symptoms. Objective - Vital Signs Vital signs: Vital Signs Temp 99.1 F 06/26/24 12:00 Pulse 110 H 06/26/24 14:00 Resp 16 06/26/24 14:00 BP 130/76 06/26/24 14:00 Pulse Ox 94 L 06/26/24 14:00 FiO2 35 06/26/24 09:10 Intake & Output 06/25/24 06/26/24 06/26/24 18:59 06:59 18:59 Intake Total 363.423 573.440 169.444 Output Total 2800 580 290 Balance -2436.577 -6.560 -120.556 Intake: IV 310 80 80 0.9 NS KVO 80 80 Intake, IV Titration 53.423 493.440 89.444 Amount Clevidipine Butyrate 25 1.4 49.333 mg In Empty Bag 1 bag @ 1 MG/HR 2 mls/hr IV .Q24H MARY Rx#:[id number] Heparin Sod,Pork in 0.45% 52.023 NaCl 25,000 unit In 0.45 % NaCl 1 250ml.bag @ 12 UNITS/KG/HR 7.784 mls/hr IV .Q24H MARY Rx#: [id number] Sodium Chloride 0.9% 1, 300 000 ml @ 75 mls/hr IV . [id number] MARY Rx#:[id number] propofoL 1,000 mg In 144.107 89.444 Empty Bag 1 bag @ 15 MCG/ KG/MIN 5.838 mls/hr IV . Q17H8M MARY Rx#:[id number] Output: Urine 2800 580 290 Other: Voiding Method Indwelling Catheter Indwelling Catheter Indwelling Catheter ABP, PAP, CO, CI - Last Documented Arterial Blood Pressure 139/59 - Exam Patient's mental status, speech and language functions are completely normal. She is speaking with whispering voice because of throat hurting from recent intubation. Otherwise she can name and repeat very well. No paraphasic errors. Comprehension is perfectly intact. Attention, concentration and fund of knowledge is adequate. On cranial nerve examination, pupils are equal, round and reacting to light, visual mckinney are full on confrontation, with no neglect on double simultaneous stimulation. Extraocular muscles are intact with no nystagmus. Face is symmetric, tongue protrudes to the midline. Palatal elevation and sensation normal, hearing and shoulder shrug normal, facial sensation normal. On muscle strength testing, there is no pronator drift and the strength is normal in arms and legs distally and proximally. Deep tendon reflexes are symmetric 1 at the biceps, 1 brachioradialis, 1+ at the knees and plantars downgoing bilaterally. Sensory to touch is equal with no neglect on double simultaneous stimulation. Cerebellar function showed no ataxia for vmiibg-[id number] testing. No dysdiadochokinesia. No ataxia for [id number] testing on either side. Tone and bulk of muscles normal. Gait deferred.. On general examination, there is no carotid bruit or murmur, S1-S2 audible. Chest is clear on consultation. Abdomen is soft nontender. No organomegaly, bowel sounds present. Peripheral pulses are present. No peripheral edema. - Labs CBC & Chem 7: 06/26/24 05:53 06/26/24 05:53 Labs: Abnormal Lab Results - Last 24 Hours (Table) 06/25/24 06/25/24 06/25/24 Range/Units 16:00 16:30 18:28 WBC (3.8-10.6) k/uL Neutrophils # (1.3-7.7) k/uL APTT 32.9 H (22.0-30.0) sec ABG pO2 333 H (83-108) mmHg ABG Total CO2 25 H (19-24) mmol/L ABG O2 Saturation 100.0 H (94-97) % Hemoglobin 16.2 H (11.4-16.0) gm/dL Chloride (98-107) mmol/L Carbon Dioxide (22-30) mmol/L BUN (7-17) mg/dL Glucose (74-99) mg/dL POC Glucose (mg/dL) 134 H (70-110) mg/dL Calcium (8.4-10.2) mg/dL Triglycerides (0.00-149.00) mg/dL Cholesterol (0.00-200.00) mg/dL VLDL Cholesterol, Calc (5.00-40.00) mg/dL HDL Cholesterol (40.00-60.00) mg/dL 06/26/24 06/26/24 06/26/24 Range/Units 04:40 05:53 05:53 WBC 17.4 H (3.8-10.6) k/uL Neutrophils # 15.1 H (1.3-7.7) k/uL APTT (22.0-30.0) sec ABG pO2 222 H (83-108) mmHg ABG Total CO2 (19-24) mmol/L ABG O2 Saturation 100.0 H (94-97) % Hemoglobin (11.4-16.0) gm/dL Chloride 108 H (98-107) mmol/L Carbon Dioxide 17 L (22-30) mmol/L BUN 19 H (7-17) mg/dL Glucose 205 H (74-99) mg/dL POC Glucose (mg/dL) (70-110) mg/dL Calcium 11.2 H (8.4-10.2) mg/dL Triglycerides 580.00 H (0.00-149.00) mg/dL Cholesterol 243.00 H (0.00-200.00) mg/dL VLDL Cholesterol, Calc 116.00 H (5.00-40.00) mg/dL HDL Cholesterol 33.30 L (40.00-60.00) mg/dL 06/26/24 06/26/24 Range/Units 06:07 11:46 WBC (3.8-10.6) k/uL Neutrophils # (1.3-7.7) k/uL APTT (22.0-30.0) sec ABG pO2 (83-108) mmHg ABG Total CO2 (19-24) mmol/L ABG O2 Saturation (94-97) % Hemoglobin (11.4-16.0) gm/dL Chloride (98-107) mmol/L Carbon Dioxide (22-30) mmol/L BUN (7-17) mg/dL Glucose (74-99) mg/dL POC Glucose (mg/dL) 214 H 179 H (70-110) mg/dL Calcium (8.4-10.2) mg/dL Triglycerides (0.00-149.00) mg/dL Cholesterol (0.00-200.00) mg/dL VLDL Cholesterol, Calc (5.00-40.00) mg/dL HDL Cholesterol (40.00-60.00) mg/dL Assessment and Plan Assessment: * Acute onset of encephalopathy at the end of cardiac catheterization/cardiac stenting, with acute rise in blood pressure, aphasia, agitation but otherwise no obvious lateralizing symptoms noted. Acute hypertensive encephalopathy, stroke/TIA or other metabolic causes are in the differential. No large vessel occlusion noted on CTA. * Acute non-STEMI * Status post cardiac stenting to the RCA and LAD. * Hypertension * Hyperlipidemia * Status post extubation. Plan: * Patient has been extubated. She is doing very well. Her current NIH stroke scale is 0. * 2-D echo revealed preserved LV systolic function without any wall motion abnormalities. LVEF 60 to 65%. Mildly increased septal wall thickness. Prominent posterior pericardial stripe. Normal left atrial size. * CTA of head and neck was done, which revealed no evidence of dissection of the cervical internal carotid arteries or vertebral arteries or any evidence of significant stenosis at the carotid bifurcation. No evidence of intracranial high-grade stenosis or intracranial aneurysm. * MRI of the brain, rule out CVA. * Fasting a.m. lipid panel cholesterol 243, LDL 106, HDL 33 and triglycerides 580.. Patient started on Lipitor 80 mg daily. * Hemoglobin A1c 6.0 * Optimize control of blood pressure. Patient is actually very well-controlled. * Patient has received loading dose of Brilinta 180 mg, continue Brilinta 90 mg twice daily and aspirin 81 mg daily. Patient was not taking any medication, not any antiplatelet medication at home. * Neuro checks every 4 hours. * Telemetry monitoring rule out any arrhythmia * PT, OT, speech therapy, when patient becomes more awake. * DVT prophylaxis: Patient on SCDs. * Discussed with family members in detail
--- NOTE | 2024-06-26 16:03 | MR ---
EXAMINATION TYPE: MR brain wo con DATE OF EXAM: 06/26/2024 3:56 PM CLINICAL INDICATION: Female, 69 years old with history of Stroke?TIA vs PRES; PHH, stroke. tia vs pre s. COMPARISON: . 06/24/2024 TECHNIQUE: Multi planar, multi sequence imaging was performed through the brain including: T1, T2, In version recovery, Diffusion weighted imaging, and gradient echo imaging. No gadolinium was given. FINDINGS: The aguila-white junctions, ventricular system, basal cisterns appear unremarkable. Scattered foci of high T2 signal intensity are seen within the periventricular white matter. Midline structures show n o abnormality. High DWI signal involving the right inferior cerebellum with additional foci of high D WI signal within the bilateral occipital lobes right greater than left possibly representing microinf arcts. Right splenium of the corpus callosum also demonstrate high DWI signal without corresponding l ow ADC signal. The susceptibility weighted images do not reveal any evidence for micro-hemorrhage. The bone marrow signal is within normal limits. Paranasal sinuses and mastoid air cells: No significant paranasal sinus disease. Visualized orbits: Bilateral aphakia IMPRESSION: 1. Acute/subacute CVA involving the right inferior cerebellum with additional foci of high DWI signal within the bilateral occipital lobes right greater than left breast representing microinfarcts. Righ t splenium of the corpus callosum also demonstrate high DWI signal without corresponding low ADC sign al suggesting older injury. 2. Nonspecific white matter changes, likely secondary to small vessel ischemic disease. [facility], Workstation: [facility], 06/26/2024 4:01 PM
[2024-06-26] MEDS: ACETAMINOPHEN TAB 325 MG TAB PO PRN (16:13)
[2024-06-26 16:37] LABS: Glucose,Whole Blood 132 mg/dL (70-110)
[2024-06-26 20:26] LABS: Glucose,Whole Blood 179 mg/dL (70-110)
--- NOTE | 2024-06-26 21:09 | P.PN ---
Subjective Progress Note Date: 06/26/24 HISTORY OF PRESENT ILLNESS: This is a 69-year-old female with a past medical history significant for os teoporosis. Patient does not follow with a saw setter. We have been asked to see the patient in consultation for non-STEMI. Patient examined at the bedside. Patient states she has been having chest pain on and off for the past 10 days. She states that she initially thought it was heartburn. She states over the past 2 days her chest pain has been more frequent. She states yesterday she had an episode of chest discomfort in the middle of her chest that was more severe than her previous episodes. She also felt nauseated and had an episode of vomiting. She reports that she did take 2 nitro yesterday which did help her chest pain. Patient denies any previous history of CAD. She states her brother did have a heart attack in his 70s. She is a non-smoker. The patient does report that she used to be prescribed antihypertensive medications. She states that she did lose weight and did not require medications any longer. The patient's blood pressures have been elevated since coming to the hospital with a systolic between [id number]. DIAGNOSTICS: - EKG reveals sinus mechanism with no signs of acute ischemia - Chest xray negative for acute process - Laboratory data: WBC 7.1. Hemoglobin 14.2. Platelet count 196. Sodium 140. Potassium 4.1. BUN 17. Creatinine 0.74. Magnesium 2.2. Troponin 0.079. 0.138. proBNP 62. - Current home cardiac medications include none Progress note 06/26/2024 Yesterday, while patient was undergoing coronary intervention, there was a concern of patient getting unresponsive with elevated blood pressure. For this code stroke was activated. Her CTA and CT head without contrast did not show any active changes or any acute thrombus burden. She was intubated and was transferred to ICU. This morning she was extubated to room air. She is following one-step commands, with no focal neurological deficits. HEENT: Head is normocephalic. Pupils are equal, round. Sclerae anicteric. Mucous membranes of the mouth are moist. Neck supple. No JVD or thyromegaly LUNGS: Poor respiratory effort, diminished air entry in bilateral lower lung mckinney, HEART: Regular rate and rhythm. S1 and S2 heard. ABDOMEN: Soft. Nondistended. Nontender. EXTREMITIES: Normal range of motion. No clubbing or cyanosis. Peripheral pulses intact. No lower extremity edema NEUROLOGIC: Awake and alert. Weak after extubation. Normal motor strength in bilateral upper and lower extremity. No cranial nerve deficit. Detailed neuroexam was not performed ASSESSMENT: NSTEMI, status post PCI to RCA and LAD Acute CVA Mechanical ventilation for airway protection due to low GCS score, 06/25/2024. Status post extubation 06/26/2024 Essential hypertension Echocardiogram showed preserved LVEF with no major valvular abnormality PLAN: Continue aspirin, Brilinta, Lipitor Lisinopril 5 mg, metoprolol succinate 25mg daily Await neurological recommendations. Await MRI findings Continue to monitor in ICU today. Frequent neurochecks Will continue to follow Objective - Vital Signs Vital signs: Vital Signs Temp 98.4 F 06/26/24 20:00 Pulse 93 06/26/24 20:00 Resp 14 06/26/24 20:00 BP 133/91 06/26/24 20:00 Pulse Ox 97 06/26/24 20:00 FiO2 35 06/26/24 09:10 Intake & Output 06/26/24 06/26/24 06/27/24 06:59 18:59 06:59 Intake Total 573.440 809.444 20 Output Total 580 420 65 Balance -6.560 389.444 -45 Intake: IV 80 120 20 0.9 NS KVO 80 120 20 Intake, IV Titration 493.440 89.444 Amount Clevidipine Butyrate 25 49.333 mg In Empty Bag 1 bag @ 1 MG/HR 2 mls/hr IV .Q24H MARY Rx#:[id number] Sodium Chloride 0.9% 1, 300 000 ml @ 75 mls/hr IV . [id number] MARY Rx#:[id number] propofoL 1,000 mg In 144.107 89.444 Empty Bag 1 bag @ 15 MCG/ KG/MIN 5.838 mls/hr IV . Q17H8M MARY Rx#:[id number] Oral 600 Output: Urine 580 420 65 Other: Voiding Method Indwelling Catheter Indwelling Catheter ABP, PAP, CO, CI - Last Documented Arterial Blood Pressure 139/59 - Labs CBC & Chem 7: 06/26/24 05:53 06/26/24 05:53 Labs: Abnormal Lab Results - Last 24 Hours (Table) 06/25/24 06/26/24 06/26/24 Range/Units 16:30 04:40 05:53 WBC (3.8-10.6) k/uL Neutrophils # (1.3-7.7) k/uL ABG pO2 333 H 222 H (83-108) mmHg ABG Total CO2 25 H (19-24) mmol/L ABG O2 Saturation 100.0 H 100.0 H (94-97) % Hemoglobin 16.2 H (11.4-16.0) gm/dL Chloride 108 H (98-107) mmol/L Carbon Dioxide 17 L (22-30) mmol/L BUN 19 H (7-17) mg/dL Glucose 205 H (74-99) mg/dL POC Glucose (mg/dL) (70-110) mg/dL Calcium 11.2 H (8.4-10.2) mg/dL Triglycerides 580.00 H (0.00-149.00) mg/dL Cholesterol 243.00 H (0.00-200.00) mg/dL VLDL Cholesterol, Calc 116.00 H (5.00-40.00) mg/dL HDL Cholesterol 33.30 L (40.00-60.00) mg/dL 06/26/24 06/26/24 06/26/24 Range/Units 05:53 06:07 11:46 WBC 17.4 H (3.8-10.6) k/uL Neutrophils # 15.1 H (1.3-7.7) k/uL ABG pO2 (83-108) mmHg ABG Total CO2 (19-24) mmol/L ABG O2 Saturation (94-97) % Hemoglobin (11.4-16.0) gm/dL Chloride (98-107) mmol/L Carbon Dioxide (22-30) mmol/L BUN (7-17) mg/dL Glucose (74-99) mg/dL POC Glucose (mg/dL) 214 H 179 H (70-110) mg/dL Calcium (8.4-10.2) mg/dL Triglycerides (0.00-149.00) mg/dL Cholesterol (0.00-200.00) mg/dL VLDL Cholesterol, Calc (5.00-40.00) mg/dL HDL Cholesterol (40.00-60.00) mg/dL 06/26/24 06/26/24 Range/Units 16:35 20:25 WBC (3.8-10.6) k/uL Neutrophils # (1.3-7.7) k/uL ABG pO2 (83-108) mmHg ABG Total CO2 (19-24) mmol/L ABG O2 Saturation (94-97) % Hemoglobin (11.4-16.0) gm/dL Chloride (98-107) mmol/L Carbon Dioxide (22-30) mmol/L BUN (7-17) mg/dL Glucose (74-99) mg/dL POC Glucose (mg/dL) 132 H 179 H (70-110) mg/dL Calcium (8.4-10.2) mg/dL Triglycerides (0.00-149.00) mg/dL Cholesterol (0.00-200.00) mg/dL VLDL Cholesterol, Calc (5.00-40.00) mg/dL HDL Cholesterol (40.00-60.00) mg/dL Microbiology - Last 24 Hours (Table) 06/25/24 20:20 Gram Stain - Preliminary Sputum
[2024-06-26] MEDS: LABETALOL 100 MG TAB PO STA (23:47)
[2024-06-27 04:50] LABS: Basophils % (A) 0 %; Eosinophils % (A) 0 %; HCT 41.9 % (34.0-46.0); HGB 14.2 gm/dL (11.4-16.0); Lymphocytes # (A) 1.1 k/uL (1.0-4.8); Lymphocytes % (A) 9 %; MCH 29.9 pg (25.0-35.0); MCHC 33.9 g/dL (31.0-37.0); MCV 88.1 fL (80.0-100.0); Mean Platelet Volume 9.3; Monocytes # (A) 0.8 k/uL (0-1.0); Monocytes % (A) 6 %; Neutrophils # (A) 10.8 k/uL (1.3-7.7); Neutrophils % (A) 83 %; Platelet Count 178 k/uL (150-450); RBC 4.76 m/uL (3.80-5.40); RDW 13.4 % (11.5-15.5)
[2024-06-27 05:12] LABS: African American GFR (CKD) >90 (>60 ml/min/1.73 sqM); Anion Gap 3 mmol/L; Blood Urea Nitrogen 18 mg/dL (7-17); Calcium 11.1 mg/dL (8.4-10.2); Carbon Dioxide 25 mmol/L (22-30); Chloride 110 mmol/L (98-107); Glucose 133 mg/dL (74-99); Non-African American GFR(CKD) 79 (>60 ml/min/1.73 sqM); Potassium 4.3 mmol/L (3.5-5.1); Sodium 138 mmol/L (137-145)
[2024-06-27 06:47] LABS: Glucose,Whole Blood 133 mg/dL (70-110)
--- NOTE | 2024-06-27 09:35 | P.PN ---
Subjective Progress Note Date: 06/27/24 Principal diagnosis: Respiratory failure. Pulmonary consult dated June 26, 2024. 69-year-old female who presented to the emergency department, on June 25. She apparently came in with abdominal discomfort, as well as chest pressure. Her symptoms have been apparently going on for a number of days, prior to admission. The patient was felt to have coronary syndrome, taken to the catheterization laboratory yesterday. The patient had stents placed in her right coronary artery, and LAD. Sometime during the procedure, the patient apparently became quite hypertensive, and had a change in her neurologic status. The patient was thought to maybe have a stroke syndrome, and she was intubated, so that she could have a CT scan of the brain, which was negative. I was called by the clinical systems analyst, who asked me to consult on this patient, for ICU management. The patient CT scan was negative. The patient also had a negative angiography CT. This morning, she is on the ventilator, with settings of volume assist-control, rate 14, tidal volume 400, FiO2 35% PEEP of 5. Blood gases on 50% show pO2 222, pCO2 38, and pH is 7.35. The patient is currently on propofol at 35 mcg/kg/min, and saline at 10 cc an hour. We are going to give the patient a daily interruption of sedation, spontaneous breathing trial today. White count 17.4, hemoglobin 14.7, hematocrit 43.3, and platelet count 215,000. Sodium 141, potassium 3.6, chlorides 108, CO2 17, anion gap 16, BUN 19, creatinine 1.03. Glucose is 214. Calcium 11.2. Chest x-ray was unremarkable. Progress note dated June 27, 2024. This is a 69-year-old female seen in consultation yesterday. Please see my note above. The patient is seen today in the intensive care unit, room 260. The patient was ventilated yesterday, and was successfully extubated. Currently she is on saline at 10 cc an hour. She is not on no supplemental oxygen. Saturations are excellent. The patient could be transferred to the cardiac unit. Current labs include a white count 13, hemoglobin 14.2, hematocrit 41.9, and a normal platelet count. Sodium 138, potassium 4.3, chlorides 110, CO2 25, BUN 18, and creatinine 0.78. Leukosis 133. Calcium is 11.1. Brain MRI done yesterday reveals acute/subacute CVA involving the right inferior cerebellum, with additional foci of high signal within the bilateral occipital lobes right greater than left, representing microinfarcts. Objective - Vital Signs Vital signs: Vital Signs Temp 99.9 F H 06/27/24 04:00 Pulse 92 06/27/24 07:00 Resp 8 L 06/27/24 07:00 BP 117/82 06/27/24 07:00 Pulse Ox 95 06/27/24 08:42 FiO2 35 06/26/24 09:10 Intake & Output 06/26/24 06/27/24 06/27/24 18:59 06:59 18:59 Intake Total 809.444 120 10 Output Total 420 485 50 Balance 389.444 -365 -40 Intake: IV 120 120 10 0.9 NS KVO 120 120 10 Intake, IV Titration 89.444 Amount propofoL 1,000 mg In 89.444 Empty Bag 1 bag @ 15 MCG/ KG/MIN 5.838 mls/hr IV . Q17H8M [facility] Rx#:[id number] Oral 600 Output: Urine 420 485 50 Other: Voiding Method Indwelling Catheter Indwelling Catheter ABP, PAP, CO, CI - Last Documented Arterial Blood Pressure 139/59 - Exam No acute distress, oriented 3. Currently on room air. HEENT examination is grossly unremarkable. Mucous membranes are moist. No oral lesions. Neck supple. Full range of motion. No adenopathy thyromegaly or neck vein distention. Cardiovascular examination reveals regular rhythm rate. S1-S2 normal. No S3 or S4. No discernible murmur noted. Lungs reveal clear breath sounds. Breath sounds are equal bilaterally. No adve ntitious lung sounds including wheezes rhonchi or crackles. Abdomen soft bowel sounds are heard. No masses or tenderness. Extremities are intact. No cyanosis clubbing or edema. Skin is without rash or lesion. Neurologic examination is brief but nonfocal. - Labs CBC & Chem 7: 06/27/24 04:17 06/27/24 04:17 Labs: Abnormal Lab Results - Last 24 Hours (Table) 06/26/24 06/26/24 06/26/24 Range/Units 05:53 11:46 16:35 WBC (3.8-10.6) k/uL Neutrophils # (1.3-7.7) k/uL Chloride 108 H (98-107) mmol/L Carbon Dioxide 17 L (22-30) mmol/L BUN 19 H (7-17) mg/dL Glucose 205 H (74-99) mg/dL POC Glucose (mg/dL) 179 H 132 H (70-110) mg/dL Calcium 11.2 H (8.4-10.2) mg/dL Triglycerides 580.00 H (0.00-149.00) mg/dL Cholesterol 243.00 H (0.00-200.00) mg/dL VLDL Cholesterol, Calc 116.00 H (5.00-40.00) mg/dL HDL Cholesterol 33.30 L (40.00-60.00) mg/dL 06/26/24 06/27/24 06/27/24 Range/Units 20:25 04:17 04:17 WBC 13.0 H (3.8-10.6) k/uL Neutrophils # 10.8 H (1.3-7.7) k/uL Chloride 110 H (98-107) mmol/L Carbon Dioxide (22-30) mmol/L BUN 18 H (7-17) mg/dL Glucose 133 H (74-99) mg/dL POC Glucose (mg/dL) 179 H (70-110) mg/dL Calcium 11.1 H (8.4-10.2) mg/dL Triglycerides (0.00-149.00) mg/dL Cholesterol (0.00-200.00) mg/dL VLDL Cholesterol, Calc (5.00-40.00) mg/dL HDL Cholesterol (40.00-60.00) mg/dL 06/27/24 Range/Units 06:45 WBC (3.8-10.6) k/uL Neutrophils # (1.3-7.7) k/uL Chloride (98-107) mmol/L Carbon Dioxide (22-30) mmol/L BUN (7-17) mg/dL Glucose (74-99) mg/dL POC Glucose (mg/dL) 133 H (70-110) mg/dL Calcium (8.4-10.2) mg/dL Triglycerides (0.00-149.00) mg/dL Cholesterol (0.00-200.00) mg/dL VLDL Cholesterol, Calc (5.00-40.00) mg/dL HDL Cholesterol (40.00-60.00) mg/dL Microbiology - Last 24 Hours (Table) 06/25/24 20:20 Gram Stain - Preliminary Sputum Assessment and Plan Assessment: Acute hypertension and neurologic changes, during cardiac catheterization, requiring intubation and mechanical ventilation. Brain MRI suggested acute/subacute CVA involving the right inferior cerebellum and bilateral occipital lobes. Routine postoperative ventilator management, with successful extubation on June 26. S/P stent placements, in the right coronary artery and LAD. History of hypertension. History of osteoporosis. Plan: Plan dated June 26, 2024. The patient has excellent gas exchange, and oxygenation on the ventilator. The patient is on propofol 35 mcg/kg/min. The patient is also getting saline at 10 cc an hour. Labs, x-rays, and medications are reviewed. The patient will have a daily interruption of sedation, and a spontaneous breathing trial. The patient's ventilator weaning parameters are excellent, including a negative expiratory force of 35, vital capacity of 1.35 L, respiratory rate 19, tidal volume of 465 mL, minute volume of 10.5 L/min, and a rapid shallow breathing index of 17. If the patient had a positive cuff leak, she can be extubated. We will continue to follow. Plan dated June 27, 2024. The patient is seen today in room 260. She is on room air. She is getting matheus ine at 10 cc an hour. The patient was successfully extubated yesterday. She seems to be feeling okay. Brain MRI suggest the possibility of an acute/subacute CVA involving the cerebellum, and bilateral occipital lobes. Additional recommendations and suggestions are forthcoming. Neurology is foll owing. Time with Patient: Less than 30
[2024-06-27 11:37] LABS: Glucose,Whole Blood 99 mg/dL (70-110)
--- NOTE | 2024-06-27 13:35 | P.PN ---
Subjective Progress Note Date: 06/27/24 patient 69-year-old lady with no significant past medical history brought in the ER because of chest pain. Patient stated that she has been having intermittent chest pain for the last 10 days. Chest pain is like a constant pressure central nonradiating, no aggravating or relieving factor associated with this chest pressure, almost feels like indigestion. There was no complaint of shortness of breath. Denies any palpitation. There is no complaint orthopnea or PND. Denies any fever or chills. Patient went to see her PCP yesterday who did an EKG and gave her some nitro that relieved her pain. Overnight patient was having more of this chest pressure associated with nausea and vomiting at the ti me patient decided come to the ER. Initial lab work done in the ER showed WBC 7.1, hemoglobin 14.2, platelet count 196, sodium 140, potassium 4.1 BUN 17, creatinine 0.74, calcium 11.2, troponin 0.079 EKG done in the ER showed heart rate of 63 , no ST segment elevation or depression seen, Q waves in V1 V2 no T-wave inversions seen. Chest x-ray done in the ER showed no acute cardiopulmonary process Patient admitted to internal medicine servicepatient 69-year-old lady with no significant past medical history brought in the ER because of chest pain. Patient stated that she has been having intermittent chest pain for the last 10 days. Chest pain is like a constant pressure central nonradiating, no aggravating or relieving factor associated with this chest pressure, almost feels like indigestion. There was no complaint of shortness of breath. Denies any palpitation. There is no complaint orthopnea or PND. Denies any fever or chills. Patient went to see her PCP yesterday who did an EKG and gave her some nitro that relieved her pain. Overnight patient was having more of this chest pressure associated with nausea and vomiting at the time patient decided come to the ER. Initial lab work done in the ER showed WBC 7.1, hemoglobin 14.2, platelet count 196, sodium 140, potassium 4.1 BUN 17, creatinine 0.74, calcium 11.2, troponin 0.079 EKG done in the ER showed heart rate of 63 , no ST segment elevation or depression seen, Q waves in V1 V2 no T-wave inversions seen. Chest x-ray done in the ER showed no acute cardiopulmonary process Patient admitted to internal medicine service 06/26. Patient seen and examined. Patient underwent cardiac cath with Successful stenting of the mid RCA using 5.0 x 18 mm Xience TATA with excellent angiographic results and reduction of stenosis from 99% to 0%, Successful stenting of the proximal LAD using 4.0 x 33 mm Xience TATA with excellent ang iographic results and reduction of stenosis from 80% to 0% 2D echo done showed preserved LV systolic function without any wall motion of normalities. Post cath, patient became very agitated, patient had to be intubated and code stroke was called. Patient was extubated this morning. Currently doing much better 06/27. Patient seen and examined . Brain MRI done reveals acute/subacute CVA involving the right inferior cerebellum, with additional foci of high signal within the bilateral occipital lobes right greater than left, representing microinfarcts. No sore throat. No weakness of any extremity REVIEW OF SYSTEMS: Denies any chest pain Denies shortness of breath. Following commands. PHYSICAL EXAMINATION: GENERAL: The patient is alert HEENT: Pupils are round and equally reacting to light. EOMI. No scleral icterus. No conjunctival pallor. Normocephalic, atraumatic. No pharyngeal erythema. No thyromegaly. CARDIOVASCULAR: S1 and S2 present. No murmurs, rubs, or gallops. PULMONARY: Chest is clear to auscultation, no wheezing or crackles. ABDOMEN: Soft, nontender, nondistended, normoactive bowel sounds. No palpable organomegaly. MUSCULOSKELETAL: No joint swelling or deformity. EXTREMITIES: No cyanosis, clubbing, or pedal edema. NEUROLOGICAL: Alert Assessment and plan Non-ST elevation WI Acute CVA Acute hypertensive encephalopathy Vent dependent respiratory failure hypertension Monitor vital signs Monitor CBC Monitor CMP Continue telemetry monitoring Brain MRI done reveals acute/subacute CVA involving the right inferior cerebellum, with additional foci of high signal within the bilateral occipital lobes right greater than left, representing microinfarcts. Status post cardiac cath with Successful stenting of the mid RCA using 5.0 x 18 mm Xience TATA with excellent angiographic results and reduction of stenosis from 99% to 0%, Successful stenting of the proximal LAD using 4.0 x 33 mm Xience TATA with excellent angiographic results and reduction of stenosis from 80% to 0% Continue aspirin, Brilinta, Lipitor Cardiology following Neurology following ICU following Labs and medication were reviewed.. Continue same treatment. Continue with symptomatic treatment. Resume home medication. Monitor labs and vitals. DVT and GI prophylaxis. Further recommendations as per clinical course of the patient Dictation was produced using [employer] dictation software. please excuse any grammatical, word or spelling errors. Objective - Vital Signs Vital signs: Vital Signs Temp 99.4 F 06/27/24 08:00 Pulse 92 06/27/24 10:00 Resp 16 06/27/24 10:00 BP 114/76 06/27/24 10:00 Pulse Ox 95 06/27/24 09:00 FiO2 35 06/26/24 09:10 Intake & Output 06/26/24 06/27/24 06/27/24 18:59 06:59 18:59 Intake Total 809.444 120 140 Output Total 420 485 195 Balance 389.444 -365 -55 Intake: IV 120 120 20 0.9 NS KVO 120 120 20 Intake, IV Titration 89.444 Amount propofoL 1,000 mg In 89.444 Empty Bag 1 bag @ 15 MCG/ KG/MIN 5.838 mls/hr IV . Q17H8M [facility] Rx#:[id number] Oral 600 120 Output: Urine 420 485 195 Other: Voiding Method Indwelling Catheter Indwelling Catheter Indwelling Catheter # Bowel Movements 1 ABP, PAP, CO, CI - Last Documented Arterial Blood Pressure 139/59 - Labs CBC & Chem 7: 06/27/24 04:17 06/27/24 04:17 Labs: Abnormal Lab Results - Last 24 Hours (Table) 06/26/24 06/26/24 06/26/24 Range/Units 11:46 16:35 20:25 WBC (3.8-10.6) k/uL Neutrophils # (1.3-7.7) k/uL Chloride (98-107) mmol/L BUN (7-17) mg/dL Glucose (74-99) mg/dL POC Glucose (mg/dL) 179 H 132 H 179 H (70-110) mg/dL Calcium (8.4-10.2) mg/dL 06/27/24 06/27/24 06/27/24 Range/Units 04:17 04:17 06:45 WBC 13.0 H (3.8-10.6) k/uL Neutrophils # 10.8 H (1.3-7.7) k/uL Chloride 110 H (98-107) mmol/L BUN 18 H (7-17) mg/dL Glucose 133 H (74-99) mg/dL POC Glucose (mg/dL) 133 H (70-110) mg/dL Calcium 11.1 H (8.4-10.2) mg/dL Microbiology - Last 24 Hours (Table) 06/25/24 20:20 Gram Stain - Preliminary Sputum
--- NOTE | 2024-06-27 14:17 | P.PN ---
Subjective Progress Note Date: 06/27/24 This is Amor Carrero NP, I'm dictating on behalf of Dr. Sebastian's H&P and A&P. Patient was interviewed and examined. Patient is a pleasant 69-year-old female who presented to the hospital with a non-ST elevated CO. Patient underwent stenting to the mid RCA and proximal LAD, during which she demonstrated altered mental status and became somewhat obtunded. Workup has been completed including an MRI to evaluate for stroke, and there is evidence on the MRI that the patient had a stroke. It looks like the right inferior cerebellum is involved with additional foci of high DWI signal within the bilateral occipital lobes right greater than left representing microinfarcts. The right splenium of the corpus callosum also demonstrates high DWI signal without corresponding low ADC signal suggesting older injury. This morning the patient reports that she is feeling okay. She is somewhat lethargic but otherwise responsive. She is denying chest pain, shortness of breath. Her catheterization site is well-approximated with no signs or symptoms of infection or hematoma noted. Patient has no evidence of disdiadochokinesis. GENERAL: Well-appearing, well-nourished and in no acute distress. NECK: Supple without JVD or thyromegaly. LUNGS: Breath sounds clear to auscultation bilaterally. Respiration equal and unlabored. No wheezes, rales or rhonchi. HEART: Regular rate and rhythm without murmurs, rubs or gallops. S1 and S2 heard. EXTREMITIES: Normal range of motion, no edema. No clubbing or cyanosis. Peripheral pulses intact and strong. VITALS: Temp 98.2, pulse 93, respirations 16, blood pressure 122/78, O2 saturation 95% on room air TELEMETRY: Sinus mechanism LABS: White count 13, hemoglobin 14.2, platelets 178, sodium 138, potassium 4.3, BUN 18, creatinine 0.78, triglycerides 580, cholesterol 243, LDL 106, HDL 33.3 IMPRESSION: 1. NSTEMI, status post PCI to RCA and LAD 2. Acute CVA 3. Hypertension PLAN: Continue aspirin, Brilinta, Lipitor. Continue cardiac medications as ordered. Follow neurology recommendations considering evidence of CVA on MRI. Continue neurochecks. Further recommendations based on patient's clinical course. Objective - Vital Signs Vital signs: Vital Signs Temp 98.2 F 06/27/24 12:00 Pulse 96 06/27/24 14:00 Resp 16 06/27/24 14:00 BP 102/69 06/27/24 14:00 Pulse Ox 95 06/27/24 12:00 FiO2 35 06/26/24 09:10 Intake & Output 06/26/24 06/27/24 06/27/24 18:59 06:59 18:59 Intake Total 809.444 120 260 Output Total 420 485 445 Balance 389.444 -365 -185 Intake: IV 120 120 20 0.9 NS KVO 120 120 20 Intake, IV Titration 89.444 Amount propofoL 1,000 mg In 89.444 Empty Bag 1 bag @ 15 MCG/ KG/MIN 5.838 mls/hr IV . Q17H8M [facility] Rx#:[id number] Oral 600 240 Output: Urine 420 485 445 Other: Voiding Method Indwelling Catheter Indwelling Catheter Indwelling Catheter # Bowel Movements 1 ABP, PAP, CO, CI - Last Documented Arterial Blood Pressure 139/59 - Labs CBC & Chem 7: 06/27/24 04:17 06/27/24 04:17 Labs: Abnormal Lab Results - Last 24 Hours (Table) 06/26/24 06/26/24 06/27/24 Range/Units 16:35 20:25 04:17 WBC 13.0 H (3.8-10.6) k/uL Neutrophils # 10.8 H (1.3-7.7) k/uL Chloride (98-107) mmol/L BUN (7-17) mg/dL Glucose (74-99) mg/dL POC Glucose (mg/dL) 132 H 179 H (70-110) mg/dL Calcium (8.4-10.2) mg/dL 06/27/24 06/27/24 Range/Units 04:17 06:45 WBC (3.8-10.6) k/uL Neutrophils # (1.3-7.7) k/uL Chloride 110 H (98-107) mmol/L BUN 18 H (7-17) mg/dL Glucose 133 H (74-99) mg/dL POC Glucose (mg/dL) 133 H (70-110) mg/dL Calcium 11.1 H (8.4-10.2) mg/dL Microbiology - Last 24 Hours (Table) 06/25/24 20:20 Gram Stain - Preliminary Sputum Sputum Culture - Preliminary
--- NOTE | 2024-06-27 14:43 | P.PN ---
Subjective Progress Note Date: 06/27/24 This is a telemedicine neurology follow performed today on 06/27/2024, in association with Juliana Ibarra. Patient is laying in the bed. Patient denies any headache any nausea vomiting and she believes her speech is clear, no problems with coordination. No dizziness. She just feels tired. She feels okay, although while walking she feels needs help because of generalized weakness. She does walk to the bedside commode. Denies any numbness or tingling or any focal weakness. Objective - Vital Signs Vital signs: Vital Signs Temp 99.4 F 06/27/24 08:00 Pulse 92 06/27/24 11:00 Resp 16 06/27/24 11:00 BP 127/71 06/27/24 11:00 Pulse Ox 95 06/27/24 11:00 FiO2 35 06/26/24 09:10 Intake & Output 06/26/24 06/27/24 06/27/24 18:59 06:59 18:59 Intake Total 809.444 120 260 Output Total 420 485 320 Balance 389.444 -365 -60 Intake: IV 120 120 20 0.9 NS KVO 120 120 20 Intake, IV Titration 89.444 Amount propofoL 1,000 mg In 89.444 Empty Bag 1 bag @ 15 MCG/ KG/MIN 5.838 mls/hr IV . Q17H8M [facility] Rx#:[id number] Oral 600 240 Output: Urine 420 485 320 Other: Voiding Method Indwelling Catheter Indwelling Catheter Indwelling Catheter # Bowel Movements 1 ABP, PAP, CO, CI - Last Documented Arterial Blood Pressure 139/59 - Exam Patient's mental status, speech and language functions are completely normal. Attention, concentration is intact. Face is symmetric. Visual mckinney full. No pronator drift. The strength appears equal. No ataxia for [id number]-[id number] testing on either sides. - Labs CBC & Chem 7: 06/27/24 04:17 06/27/24 04:17 Labs: Abnormal Lab Results - Last 24 Hours (Table) 06/26/24 06/26/24 06/27/24 Range/Units 16:35 20:25 04:17 WBC 13.0 H (3.8-10.6) k/uL Neutrophils # 10.8 H (1.3-7.7) k/uL Chloride (98-107) mmol/L BUN (7-17) mg/dL Glucose (74-99) mg/dL POC Glucose (mg/dL) 132 H 179 H (70-110) mg/dL Calcium (8.4-10.2) mg/dL 06/27/24 06/27/24 Range/Units 04:17 06:45 WBC (3.8-10.6) k/uL Neutrophils # (1.3-7.7) k/uL Chloride 110 H (98-107) mmol/L BUN 18 H (7-17) mg/dL Glucose 133 H (74-99) mg/dL POC Glucose (mg/dL) 133 H (70-110) mg/dL Calcium 11.1 H (8.4-10.2) mg/dL Microbiology - Last 24 Hours (Table) 06/25/24 20:20 Gram Stain - Preliminary Sputum Sputum Culture - Preliminary Assessment and Plan Assessment: * Acute ischemic stroke, small, multifocal involving the right inferior cerebellum with additional foci of high DWI signal within the bilateral occipital lobes, right greater than left, and right side of splenium, representing microinfarcts. Patient had developed an acute onset of encephalopathy at the end of cardiac catheterization/cardiac stenting, with acute rise in blood pressure, aphasia, agitation but otherwise no obvious lateralizing symptoms were noted. No large vessel occlusion noted on CTA. * Acute non-STEMI * Status post cardiac stenting to the RCA and LAD. * Hypertension * Hyperlipidemia * Status post extubation. Plan: * Patient is doing very well. She just feels tired. Her current NIH stroke scale is 0. * MRI of the brain revealed acute/subacute CVA involving the right inferior cerebellum with additional foci of high DWI signal within the bilateral occipital lobes, right greater than left, and right splenium of the corpus callosum. Suggestive of multifocal acute ischemic infarcts. This probably is embolic in nature, likely related to shower of microemboli. * 2-D echo revealed preserved LV systolic function without any wall motion abnormalities. LVEF 60 to 65%. Mildly increased septal wall thickness. Prominent posterior pericardial stripe. Normal left atrial size. * CTA of head and neck revealed no evidence of dissection of the cervical internal carotid arteries or vertebral arteries or any evidence of significant stenosis at the carotid bifurcation. No evidence of intracranial high-grade stenosis or intracranial aneurysm. * Fasting a.m. lipid panel cholesterol 243, LDL 106, HDL 33 and triglycerides 580.. Patient started on Lipitor 80 mg daily. * Hemoglobin A1c 6.0 * Optimize control of blood pressure. Patient is actually very well-controlled. Avoid hypotension. * Patient has received loading dose of Brilinta 180 mg, continue Brilinta 90 mg twice daily and aspirin 81 mg daily. Patient was not taking any medication, not any antiplatelet medication at home. * Neuro checks every 4 hours. * Telemetry monitoring rule out any arrhythmia * PT, OT, speech therapy * DVT prophylaxis: Patient on SCDs. Start heparin 5000 units subcu every 8 hours. * Discussed with patient's and nursing staff in detail.
[2024-06-27] MEDS: BENZOCAINE/MENTHOL LOZENG 1 EACH LOZENGE MUCOUS MEM PRN (16:04)
[2024-06-27 16:41] LABS: Glucose,Whole Blood 110 mg/dL (70-110)
[2024-06-27 20:02] LABS: Glucose,Whole Blood 177 mg/dL (70-110)
[2024-06-28 06:16] LABS: Basophils % (A) 0 %; Eosinophils # (A) 0.1 k/uL (0-0.7); Eosinophils % (A) 1 %; HGB 14.1 gm/dL (11.4-16.0); Lymphocytes # (A) 1.1 k/uL (1.0-4.8); Lymphocytes % (A) 10 %; MCH 30.1 pg (25.0-35.0); MCHC 34.3 g/dL (31.0-37.0); MCV 87.9 fL (80.0-100.0); Mean Platelet Volume 9.2; Monocytes # (A) 0.7 k/uL (0-1.0); Monocytes % (A) 6 %; Neutrophils # (A) 9.1 k/uL (1.3-7.7); Neutrophils % (A) 81 %; Platelet Count 180 k/uL (150-450); RBC 4.66 m/uL (3.80-5.40); RDW 13.2 % (11.5-15.5); WBC 11.2 k/uL (3.8-10.6)
[2024-06-28 06:35] LABS: African American GFR (CKD) 83 (>60 ml/min/1.73 sqM); Anion Gap 2 mmol/L; Blood Urea Nitrogen 18 mg/dL (7-17); Carbon Dioxide 25 mmol/L (22-30); Chloride 109 mmol/L (98-107); Glucose 123 mg/dL (74-99); Non-African American GFR(CKD) 72 (>60 ml/min/1.73 sqM); Sodium 136 mmol/L (137-145)
[2024-06-28 06:37] LABS: Glucose,Whole Blood 125 mg/dL (70-110)
[2024-06-28] MEDS: METOPROLOL TARTRATE 50 MG TAB PO STA (08:00)
--- NOTE | 2024-06-28 10:34 | P.PN ---
Subjective Progress Note Date: 06/28/24 Principal diagnosis: Respiratory failure. Pulmonary consult dated June 26, 2024. 69-year-old female who presented to the emergency department, on June 25. She apparently came in with abdominal discomfort, as well as chest pressure. Her symptoms have been apparently going on for a number of days, prior to admission. The patient was felt to have coronary syndrome, taken to the catheterization laboratory yesterday. The patient had stents placed in her right coronary artery, and LAD. Sometime during the procedure, the patient apparently became quite hypertensive, and had a change in her neurologic status. The patient was thought to maybe have a stroke syndrome, and she was intubated, so that she could have a CT scan of the brain, which was negative. I was called by the director of recreation therapy, who asked me to consult on this patient, for ICU management. The patient CT scan was negative. The patient also had a negative angiography CT. This morning, she is on the ventilator, with settings of volume assist-control, rate 14, tidal volume 400, FiO2 35% PEEP of 5. Blood gases on 50% show pO2 222, pCO2 38, and pH is 7.35. The patient is currently on propofol at 35 mcg/kg/min, and saline at 10 cc an hour. We are going to give the patient a daily interruption of sedation, spontaneous breathing trial today. White count 17.4, hemoglobin 14.7, hematocrit 43.3, and platelet count 215,000. Sodium 141, potassium 3.6, chlorides 108, CO2 17, anion gap 16, BUN 19, creatinine 1.03. Glucose is 214. Calcium 11.2. Chest x-ray was unremarkable. Progress note dated June 27, 2024. This is a 69-year-old female seen in consultation yesterday. Please see my note above. The patient is seen today in the intensive care unit, room 260. The patient was ventilated yesterday, and was successfully extubated. Currently she is on saline at 10 cc an hour. She is not on no supplemental oxygen. Saturations are excellent. The patient could be transferred to the cardiac unit. Current labs include a white count 13, hemoglobin 14.2, hematocrit 41.9, and a normal platelet count. Sodium 138, potassium 4.3, chlorides 110, CO2 25, BUN 18, and creatinine 0.78. Leukosis 133. Calcium is 11.1. Brain MRI done yesterday reveals acute/subacute CVA involving the right inferior cerebellum, with additional foci of high signal within the bilateral occipital lobes right greater than left, representing microinfarcts. Progress note dated June 28, 2024. 69-year-old female seen in room 260. She is not requiring any supplemental oxygen. She did have some atrial fibrillation with RVR last night. She received some Lopressor, per cardiology. Currently, the patient is resting comfortably. No issues last night according to the nurse. Current labs include a white count 11.2, hemoglobin 14.1, hematocrit 41, platelet count 180,000. Sodium 136, potassium 4, chlorides 109, CO2 25, BUN 18, creatinine 0.84. Glucose is 125. Calcium is 11.0. Objective - Vital Signs Vital signs: Vital Signs Temp 100 F H 06/28/24 08:00 Pulse 120 H 06/28/24 10:00 Resp 19 06/28/24 10:00 BP 104/70 06/28/24 10:00 Pulse Ox 96 06/28/24 08:00 FiO2 35 06/26/24 09:10 Intake & Output 06/27/24 06/28/24 06/28/24 18:59 06:59 18:59 Intake Total 380 0 120 Output Total 600 570 250 Balance -220 -570 -130 Weight 67.8 kg 68.1 kg Intake: IV 20 0.9 NS KVO 20 Oral 360 0 120 Output: Urine 600 570 250 Other: Voiding Method Indwelling Catheter Indwelling Catheter Indwelling Catheter # Bowel Movements 1 1 1 ABP, PAP, CO, CI - Last Documented Arterial Blood Pressure 139/59 - Exam No acute distress, oriented 3. Currently on room air. HEENT examination is grossly unremarkable. Mucous membranes are moist. No oral lesions. Neck supple. Full range of motion. No adenopathy thyromegaly or neck vein distention. Cardiovascular examination reveals an irregular rhythm and rate. The patient is clearly in atrial fibrillation. S1-S2 normal. No S3 or S4. No discernible murmur noted. Heart rate 120 bpm. Lungs reveal clear breath sounds. Breath sounds are equal bilaterally. No adventitious lung sounds including wheezes rhonchi or crackles. Room air saturation is 96%. Abdomen soft bowel sounds are heard. No masses or tenderness. Extremities are intact. No cyanosis clubbing or edema. Skin is without rash or lesion. Neurologic examination is brief but nonfocal. - Labs CBC & Chem 7: 06/28/24 05:52 06/28/24 05:52 Labs: Abnormal Lab Results - Last 24 Hours (Table) 06/27/24 06/28/24 06/28/24 Range/Units 20:01 05:52 05:52 WBC 11.2 H (3.8-10.6) k/uL Neutrophils # 9.1 H (1.3-7.7) k/uL Sodium 136 L (137-145) mmol/L Chloride 109 H (98-107) mmol/L BUN 18 H (7-17) mg/dL Glucose 123 H (74-99) mg/dL POC Glucose (mg/dL) 177 H (70-110) mg/dL Calcium 11.0 H (8.4-10.2) mg/dL 06/28/24 Range/Units 06:35 WBC (3.8-10.6) k/uL Neutrophils # (1.3-7.7) k/uL Sodium (137-145) mmol/L Chloride (98-107) mmol/L BUN (7-17) mg/dL Glucose (74-99) mg/dL POC Glucose (mg/dL) 125 H (70-110) mg/dL Calcium (8.4-10.2) mg/dL Microbiology - Last 24 Hours (Table) 06/25/24 20:20 Gram Stain - Preliminary Sputum Sputum Culture - Preliminary Assessment and Plan Assessment: Acute hypertension and neurologic changes, during cardiac catheterization, requiring intubation and mechanical ventilation. Brain MRI suggested acute/subacute CVA involving the right inferior cerebellum and bilateral occipital lobes. Routine postoperative ventilator management, with successful extubation on June 26. New onset atrial fibrillation with RVR. S/P stent placements, in the right coronary artery and LAD, 06/25/2024. History of hypertension. History of osteoporosis. Plan: Plan dated June 26, 2024. The patient has excellent gas exchange, and oxygenation on the ventilator. The patient is on propofol 35 mcg/kg/min. The patient is also getting saline at 10 cc an hour. Labs, x-rays, and medications are reviewed. The patient will have a daily interruption of sedation, and a spontaneous breathing trial. The patient's ventilator weaning parameters are excellent, including a negative expiratory force of 35, vital capacity of 1.35 L, respiratory rate 19, tidal volume of 465 mL, minute volume of 10.5 L/min, and a rapid shallow breathing index of 17. If the patient had a positive cuff leak, she can be extubated. We will continue to follow. Plan dated June 27, 2024. The patient is seen today in room 260. She is on room air. She is getting saline at 10 cc an hour. The patient was successfully extubated yesterday. She seems to be feeling okay. Brain MRI suggest the possibility of an acute/subacute CVA involving the cerebellum, and bilateral occipital lobes. Additional recommendations and suggestions are forthcoming. Neurology is following. Plan dated June 28, 2024. The patient has some atrial fibrillation with rapid ventricular response last n ight, and cardiology gave her some metoprolol. The patient is currently on room air. No IV fluids. She is clearly in atrial fibrillation with a heart rate of 120 bpm. The brain MRI did suggest the possibility of an acute/subacute CVA. Please see the note above. Labs, x-rays, and medications are reviewed. Prognosis is guarded. No additional recommendations at this time. Time with Patient: Less than 30
[2024-06-28] MEDS: ZINC OXIDE PASTE (Z-GUARD) 1 APPLIC TOPICAL PRN (10:47)
[2024-06-28] MEDS: LOPERAMIDE 2 MG CAP PO PRN (11:06)
[2024-06-28] MEDS: ONDANSETRON 4 MG/2 ML VIAL IVP PRN (11:06)
--- NOTE | 2024-06-28 12:09 | P.PN ---
Subjective Progress Note Date: 06/28/24 This is a telemedicine neurology follow performed today on 06/28/2024, with Juliana Ibarra. Patient is laying in the recliner, appears generalized weak. Patient has developed new onset atrial fibrillation with rapid ventricular rate today, which lasted for about 2 hours. Her heart rate was around 150. Now she is in sinus rhythm with heart rate of 80. Patient has been having some nausea vomiting, diarrhea, watery loose stool, with some puddle. Stools have been sent for C. difficile. Patient has been given Imodium and Zofran. Neurologically she is doing well. Denies any numbness tingling any weakness, diplopia or blurred vision or loss of vision. She walked better. Her balance was fine. Patient has never smoked. Objective - Vital Signs Vital signs: Vital Signs Temp 100 F H 06/28/24 08:00 Pulse 120 H 06/28/24 10:00 Resp 19 06/28/24 10:00 BP 104/70 06/28/24 10:00 Pulse Ox 96 06/28/24 08:00 FiO2 35 06/26/24 09:10 Intake & Output 06/27/24 06/28/24 06/28/24 18:59 06:59 18:59 Intake Total 380 0 120 Output Total 600 570 250 Balance -220 -570 -130 Weight 67.8 kg 68.1 kg Intake: IV 20 0.9 NS KVO 20 Oral 360 0 120 Output: Urine 600 570 250 Other: Voiding Method Indwelling Catheter Indwelling Catheter Indwelling Catheter # Bowel Movements 1 1 1 ABP, PAP, CO, CI - Last Documented Arterial Blood Pressure 139/59 - Exam Patient's mental status, speech and language functions are completely normal. Attention, concentration is intact. Face is symmetric. Visual mckinney full. No pronator drift. The strength normal 5/5 in the morning babysitter, biceps and triceps. Ankle dorsiflexion and plantar flexion are normal bilaterally. No ataxia for [id number] testing on either sides. Sensory touch is equal with no neglect. Gait deferred. - Labs CBC & Chem 7: 06/28/24 05:52 06/28/24 05:52 Labs: Abnormal Lab Results - Last 24 Hours (Table) 06/27/24 06/28/24 06/28/24 Range/Units 20:01 05:52 05:52 WBC 11.2 H (3.8-10.6) k/uL Neutrophils # 9.1 H (1.3-7.7) k/uL Sodium 136 L (137-145) mmol/L Chloride 109 H (98-107) mmol/L BUN 18 H (7-17) mg/dL Glucose 123 H (74-99) mg/dL POC Glucose (mg/dL) 177 H (70-110) mg/dL Calcium 11.0 H (8.4-10.2) mg/dL 06/28/24 Range/Units 06:35 WBC (3.8-10.6) k/uL Neutrophils # (1.3-7.7) k/uL Sodium (137-145) mmol/L Chloride (98-107) mmol/L BUN (7-17) mg/dL Glucose (74-99) mg/dL POC Glucose (mg/dL) 125 H (70-110) mg/dL Calcium (8.4-10.2) mg/dL Microbiology - Last 24 Hours (Table) 06/25/24 20:20 Gram Stain - Final Sputum Sputum Culture - Final Assessment and Plan Assessment: * Acute ischemic stroke, small, multifocal involving the right inferior cerebellum with additional foci of high DWI signal within the bilateral o ccipital lobes, right greater than left, and right side of splenium, representing microinfarcts. Patient had developed an acute onset of encephalopathy at the end of cardiac catheterization/cardiac stenting, with acute rise in blood pressure, aphasia, agitation but otherwise no obvious lateralizing symptoms were noted. No large vessel occlusion noted on CTA. * New onset atrial fibrillation with RVR, now in sinus rhythm * Acute non-STEMI * Status post cardiac stenting to the RCA and LAD. * Hypertension * Hyperlipidemia * Status post extubation. Plan: * Neurologically patient is doing well. Her current NIH stroke scale is 0. * Patient has developed new onset atrial fibrillation. From neurology standpoint, patient is cleared for starting anticoagulation with heparin drip. Although the strokes are small, but would avoid bolus, if possible. * MRI of the brain revealed acute/subacute CVA involving the right inferior cerebellum with additional foci of high DWI signal within the bilateral occipital lobes, right greater than left, and right splenium of the corpus callosum. Suggestive of multifocal acute ischemic infarcts. This probably is embolic in nature, likely related to shower of microemboli. * 2-D echo revealed preserved LV systolic function without any wall motion abnormalities. LVEF 60 to 65%. Mildly increased septal wall thickness. Prominent posterior pericardial stripe. Normal left atrial size. * CTA of head and neck revealed no evidence of dissection of the cervical internal carotid arteries or vertebral arteries or any evidence of significant stenosis at the carotid bifurcation. No evidence of intracranial high-grade stenosis or intracranial aneurysm. * Fasting a.m. lipid panel cholesterol 243, LDL 106, HDL 33 and triglycerides 580.. Patient started on Lipitor 80 mg daily. * Hemoglobin A1c 6.0 * Optimize control of blood pressure. Blood pressure is actually very well- controlled. Avoid hypotension. * Patient has received loading dose of Brilinta 180 mg, continue Brilinta 90 mg twice daily and aspirin 81 mg daily. Patient was not taking any medication, not any antiplatelet medication at home. * Neuro checks every 4 hours. * Telemetry monitoring rule out any arrhythmia * PT, OT, speech therapy * DVT prophylaxis: Patient on SCDs. Start heparin 5000 units subcu every 8 hours. * Discussed with patient's and nursing staff in detail. * Dr. Jonn Briseno to start neurology service from the morning.
--- NOTE | 2024-06-28 12:55 | P.PN ---
Subjective Progress Note Date: 06/28/24 This is Amor Carrero NP, I'm dictating on behalf of Dr. Sebastian's H&P and A&P. Patient was interviewed and examined. Patient is a pleasant 69-year-old female who presented to the hospital with a non-ST elevated HI. Patient underwent stenting to the mid RCA and proximal LAD, during which she demonstrated altered mental status and became somewhat obtunded. Workup has been completed including an MRI to evaluate for stroke, and there is evidence on the MRI that the patient had a stroke. It looks like the right inferior cerebellum is involved with additional foci of high DWI signal within the bilateral occipital lobes right greater than left representing microinfarcts. The right splenium of the corpus callosum also demonstrates high DWI signal without corresponding low ADC signal suggesting older injury. This morning the patient went into atrial fibrillation with rapid ventricular response. She was given oral metoprolol 50 mg x 1, and just prior to arrival converted back to normal sinus rhythm spontaneously. Patient reports that she felt "off" during the episode, and reports that she has felt that way previously especially with exertion. She is otherwise denying chest pain, heart pa lpitations, dizziness, or syncope. She states overall she feels a little bit better today. GENERAL: Well-appearing, well-nourished and in no acute distress. NECK: Supple without JVD or thyromegaly. LUNGS: Breath sounds clear to auscultation bilaterally. Respiration equal and unlabored. No wheezes, rales or rhonchi. HEART: Regular rate and rhythm without murmurs, rubs or gallops. S1 and S2 he azul. EXTREMITIES: Normal range of motion, no edema. No clubbing or cyanosis. Peripheral pulses intact and strong. VITALS: Temp 99, pulse 78, respirations 16, blood pressure 110/67, O2 saturation 96% on room air TELEMETRY: Sinus mechanism LABS: White count 11.2, hemoglobin 14.1, platelets 180, sodium 136, potassium 4.0, BUN 18, creatinine 0.84 IMPRESSION: 1. NSTEMI, status post PCI to RCA and LAD 2. Acute CVA 3. Hypertension 4. Atrial fibrillation with rapid ventricular response, currently sinus mechanism PLAN: Start metoprolol 50 mg twice daily. Continue other previously prescribed current medications. If atrial fibrillation happens again, we will need to consider other anticoagul ation modalities. Otherwise continue aspirin and Brilinta. Further recommendations based on patient's clinical course. Objective - Vital Signs Vital signs: Vital Signs Temp 99 F 06/28/24 12:00 Pulse 78 06/28/24 12:00 Resp 16 06/28/24 12:00 BP 110/67 06/28/24 12:00 Pulse Ox 96 06/28/24 12:00 FiO2 35 06/26/24 09:10 Intake & Output 06/27/24 06/28/24 06/28/24 18:59 06:59 18:59 Intake Total 380 0 240 Output Total 600 570 450 Balance -220 -570 -210 Weight 67.8 kg 68.1 kg Intake: IV 20 0.9 NS KVO 20 Oral 360 0 240 Output: Urine 600 570 450 Other: Voiding Method Indwelling Catheter Indwelling Catheter Indwelling Catheter # Bowel Movements 1 1 1 ABP, PAP, CO, CI - Last Documented Arterial Blood Pressure 139/59 - Labs CBC & Chem 7: 06/28/24 05:52 06/28/24 05:52 Labs: Abnormal Lab Results - Last 24 Hours (Table) 06/27/24 06/28/24 06/28/24 Range/Units 20:01 05:52 05:52 WBC 11.2 H (3.8-10.6) k/uL Neutrophils # 9.1 H (1.3-7.7) k/uL Sodium 136 L (137-145) mmol/L Chloride 109 H (98-107) mmol/L BUN 18 H (7-17) mg/dL Glucose 123 H (74-99) mg/dL POC Glucose (mg/dL) 177 H (70-110) mg/dL Calcium 11.0 H (8.4-10.2) mg/dL 06/28/24 Range/Units 06:35 WBC (3.8-10.6) k/uL Neutrophils # (1.3-7.7) k/uL Sodium (137-145) mmol/L Chloride (98-107) mmol/L BUN (7-17) mg/dL Glucose (74-99) mg/dL POC Glucose (mg/dL) 125 H (70-110) mg/dL Calcium (8.4-10.2) mg/dL Microbiology - Last 24 Hours (Table) 06/25/24 20:20 Gram Stain - Final Sputum Sputum Culture - Final
--- NOTE | 2024-06-28 13:32 | P.PN ---
Subjective Progress Note Date: 06/28/24 patient 69-year-old lady with no significant past medical history brought in the ER because of chest pain. Patient stated that she has been having intermittent chest pain for the last 10 days. Chest pain is like a constant pressure central nonradiating, no aggravating or relieving factor associated with this chest pressure, almost feels like indigestion. There was no complaint of shortness of breath. Denies any palpitation. There is no complaint orthopnea or PND. Denies any fever or chills. Patient went to see her PCP yesterday who did an EKG and gave her some nitro that relieved her pain. Overnight patient was having more of this chest pressure associated with nausea and vomiting at the ti me patient decided come to the ER. Initial lab work done in the ER showed WBC 7.1, hemoglobin 14.2, platelet count 196, sodium 140, potassium 4.1 BUN 17, creatinine 0.74, calcium 11.2, troponin 0.079 EKG done in the ER showed heart rate of 63 , no ST segment elevation or depression seen, Q waves in V1 V2 no T-wave inversions seen. Chest x-ray done in the ER showed no acute cardiopulmonary process Patient admitted to internal medicine servicepatient 69-year-old lady with no significant past medical history brought in the ER because of chest pain. Patient stated that she has been having intermittent chest pain for the last 10 days. Chest pain is like a constant pressure central nonradiating, no aggravating or relieving factor associated with this chest pressure, almost feels like indigestion. There was no complaint of shortness of breath. Denies any palpitation. There is no complaint orthopnea or PND. Denies any fever or chills. Patient went to see her PCP yesterday who did an EKG and gave her some nitro that relieved her pain. Overnight patient was having more of this chest pressure associated with nausea and vomiting at the time patient decided come to the ER. Initial lab work done in the ER showed WBC 7.1, hemoglobin 14.2, platelet count 196, sodium 140, potassium 4.1 BUN 17, creatinine 0.74, calcium 11.2, troponin 0.079 EKG done in the ER showed heart rate of 63 , no ST segment elevation or depression seen, Q waves in V1 V2 no T-wave inversions seen. Chest x-ray done in the ER showed no acute cardiopulmonary process Patient admitted to internal medicine service 06/26. Patient seen and examined. Patient underwent cardiac cath with Successful stenting of the mid RCA using 5.0 x 18 mm Xience TATA with excellent angiographic results and reduction of stenosis from 99% to 0%, Successful stenting of the proximal LAD using 4.0 x 33 mm Xience TATA with excellent ang iographic results and reduction of stenosis from 80% to 0% 2D echo done showed preserved LV systolic function without any wall motion of normalities. Post cath, patient became very agitated, patient had to be intubated and code stroke was called. Patient was extubated this morning. Currently doing much better 06/27. Patient seen and examined . Brain MRI done reveals acute/subacute CVA involving the right inferior cerebellum, with additional foci of high signal within the bilateral occipital lobes right greater than left, representing microinfarcts. No sore throat. No weakness of any extremity 06/28. Patient seen and examined. Complaining of diarrhea and nausea. No weakness of any extremity REVIEW OF SYSTEMS: Denies any chest pain Denies shortness of breath. Following commands. PHYSICAL EXAMINATION: GENERAL: The patient is alert HEENT: Pupils are round and equally reacting to light. EOMI. No scleral icterus. No conjunctival pallor. Normocephalic, atraumatic. No pharyngeal erythema. No thyromegaly. CARDIOVASCULAR: S1 and S2 present. No murmurs, rubs, or gallops. PULMONARY: Chest is clear to auscultation, no wheezing or crackles. ABDOMEN: Soft, nontender, nondistended, normoactive bowel sounds. No palpable organomegaly. MUSCULOSKELETAL: No joint swelling or deformity. EXTREMITIES: No cyanosis, clubbing, or pedal edema. NEUROLOGICAL: Alert Assessment and plan Non-ST elevation [place] Acute CVA New onset A-fib with RVR Acute hypertensive encephalopathy Vent dependent respiratory failure hypertension Monitor vital signs Monitor CBC Monitor CMP Continue telemetry monitoring Brain MRI done reveals acute/subacute CVA involving the right inferior cerebellum, with additional foci of high signal within the bilateral occipital lobes right greater than left, representing microinfarcts. Status post cardiac cath with Successful stenting of the mid RCA using 5.0 x 18 mm Xience TATA with excellent angiographic results and reduction of stenosis from 99% to 0%, Successful stenting of the proximal LAD using 4.0 x 33 mm Xience TATA with excellent angiographic results and reduction of stenosis from 80% to 0% Continue aspirin, Brilinta, Lipitor Start metoprolol 50 mg twice daily Cardiology following Neurology following ICU following Labs and medication were reviewed.. Continue same treatment. Continue with symptomatic treatment. Resume home medication. Monitor labs and vitals. DVT and GI prophylaxis. Further recommendations as per clinical course of the patient Dictation was produced using [employer] dictation software. please excuse any grammatical, word or spelling errors. Objective - Vital Signs Vital signs: Vital Signs Temp 100 F H 06/28/24 08:00 Pulse 101 H 06/28/24 09:00 Resp 20 06/28/24 09:00 BP 113/66 06/28/24 09:00 Pulse Ox 96 06/28/24 08:00 FiO2 35 06/26/24 09:10 Intake & Output 06/27/24 06/28/24 06/28/24 18:59 06:59 18:59 Intake Total 380 0 120 Output Total 600 570 50 Balance -220 -570 70 Weight 67.8 kg 68.1 kg Intake: IV 20 0.9 NS KVO 20 Oral 360 0 120 Output: Urine 600 570 50 Other: Voiding Method Indwelling Catheter Indwelling Catheter # Bowel Movements 1 1 2 ABP, PAP, CO, CI - Last Documented Arterial Blood Pressure 139/59 - Labs CBC & Chem 7: 06/28/24 05:52 06/28/24 05:52 Labs: Abnormal Lab Results - Last 24 Hours (Table) 06/27/24 06/28/24 06/28/24 Range/Units 20:01 05:52 05:52 WBC 11.2 H (3.8-10.6) k/uL Neutrophils # 9.1 H (1.3-7.7) k/uL Sodium 136 L (137-145) mmol/L Chloride 109 H (98-107) mmol/L BUN 18 H (7-17) mg/dL Glucose 123 H (74-99) mg/dL POC Glucose (mg/dL) 177 H (70-110) mg/dL Calcium 11.0 H (8.4-10.2) mg/dL 06/28/24 Range/Units 06:35 WBC (3.8-10.6) k/uL Neutrophils # (1.3-7.7) k/uL Sodium (137-145) mmol/L Chloride (98-107) mmol/L BUN (7-17) mg/dL Glucose (74-99) mg/dL POC Glucose (mg/dL) 125 H (70-110) mg/dL Calcium (8.4-10.2) mg/dL Microbiology - Last 24 Hours (Table) 06/25/24 20:20 Gram Stain - Preliminary Sputum Sputum Culture - Preliminary
[2024-06-28] MEDS: METOPROLOL TARTRATE 50 MG TAB PO SCH (20:16)
[2024-06-29 06:10] LABS: Basophils % (A) 0 %; Eosinophils # (A) 0.3 k/uL (0-0.7); Eosinophils % (A) 4 %; HCT 40.6 % (34.0-46.0); HGB 13.2 gm/dL (11.4-16.0); Lymphocytes # (A) 1.4 k/uL (1.0-4.8); Lymphocytes % (A) 18 %; MCH 29.1 pg (25.0-35.0); MCHC 32.6 g/dL (31.0-37.0); MCV 89.4 fL (80.0-100.0); Mean Platelet Volume 8.5; Monocytes # (A) 0.5 k/uL (0-1.0); Monocytes % (A) 6 %; Neutrophils # (A) 5.2 k/uL (1.3-7.7); Neutrophils % (A) 68 %; Platelet Count 185 k/uL (150-450); RBC 4.55 m/uL (3.80-5.40); RDW 12.7 % (11.5-15.5); WBC 7.6 k/uL (3.8-10.6)
[2024-06-29 06:33] LABS: African American GFR (CKD) 85 (>60 ml/min/1.73 sqM); Anion Gap 3 mmol/L; Blood Urea Nitrogen 20 mg/dL (7-17); Calcium 11.2 mg/dL (8.4-10.2); Carbon Dioxide 24 mmol/L (22-30); Chloride 110 mmol/L (98-107); Glucose 102 mg/dL (74-99); Non-African American GFR(CKD) 74 (>60 ml/min/1.73 sqM); Sodium 137 mmol/L (137-145)
--- NOTE | 2024-06-29 08:02 | P.PN ---
Subjective Progress Note Date: 06/29/24 PROGRESS NOTE The patient is a 69-year-old female who presented with non-STEMI and underwent cardiac catheterization, found to have obstructive disease in the LAD and left circumflex and underwent stenting of both vessels. She has some change in mental status that resolved. She is feeling well this morning, ambulating without difficulties. She denies any chest discomfort, dizziness or palpitations. She had an episode of atrial fibrillation yesterday that was brief and resolved. Medications: Aspirin, Lipitor 80 mg daily, metoprolol 50 mg twice a day, lisinopril 5 mg daily, Brilinta 90 mg twice a day PHYSICAL EXAMINATION: Blood pressure 105/70 heart rate 60 LUNGS: Clear to auscultation HEART: Regular rate and rhythm, S1, S2. No S3. No systolic murmur ABDOMEN: Soft, nontender, no organomegaly EXTREMETIES: No edema LAB: BUN 20, creatinine 0.83 IMPRESSION: 1. Status post non-STEMI with stenting of the LAD and left circumflex 2. Change in mental status, resolved 3. 1 episode of atrial fibrillation without any further recurrence 4. Hypertension, under good control PLAN: 1. Increase physical activity 2. Continue present therapy 3. If no further symptoms probable discharge home today on dual antiplatelet treatment for 1 year 4. If further episodes of atrial fibrillation initiate anticoagulation 5. Follow-up with Dr. Dunn as an outpatient Objective - Vital Signs Vital signs: Vital Signs Temp 98.2 F 06/29/24 03:34 Pulse 64 06/29/24 03:34 Resp 16 06/28/24 16:00 BP 105/69 06/29/24 03:34 Pulse Ox 98 06/29/24 03:34 FiO2 35 06/26/24 09:10 Intake & Output 06/28/24 06/29/24 06/29/24 18:59 06:59 18:59 Intake Total 480 Output Total 450 0 Balance 30 0 Weight 68.5 kg Intake: Oral 480 Output: Urine 450 0 Other: Voiding Method Toilet Toilet # Voids 1 # Bowel Movements 1 ABP, PAP, CO, CI - Last Documented Arterial Blood Pressure 139/59 - Labs CBC & Chem 7: 06/29/24 05:38 06/29/24 05:38 Labs: Abnormal Lab Results - Last 24 Hours (Table) 06/29/24 Range/Units 05:38 Chloride 110 H (98-107) mmol/L BUN 20 H (7-17) mg/dL Glucose 102 H (74-99) mg/dL Calcium 11.2 H (8.4-10.2) mg/dL Microbiology - Last 24 Hours (Table) 06/25/24 20:20 Gram Stain - Final Sputum Sputum Culture - Final
--- NOTE | 2024-06-29 11:39 | P.PN ---
Subjective Progress Note Date: 06/29/24 Respiratory failure. Pulmonary consult dated June 26, 2024. 69-year-old female who presented to the emergency department, on June 25. She apparently came in with abdominal discomfort, as well as chest pressure. Her symptoms have been apparently going on for a number of days, prior to admission. The patient was felt to have coronary syndrome, taken to the catheterization laboratory yesterday. The patient had stents placed in her right coronary artery, and LAD. Sometime during the procedure, the patient apparently became quite hypertensive, and had a change in her neurologic status. The patient was thought to maybe have a stroke syndrome, and she was intubated, so that she could have a CT scan of the brain, which was negative. I was called by the hadoop analyst, who asked me to consult on this patient, for ICU management. The patient CT scan was negative. The patient also had a negative angiography CT. This morning, she is on the ventilator, with settings of volume assist-control, rate 14, tidal volume 400, FiO2 35% PEEP of 5. Blood gases on 50% show pO2 222, pCO2 38, and pH is 7.35. The patient is currently on propofol at 35 mcg/kg/min, and saline at 10 cc an hour. We are going to give the patient a daily interruption of sedation, spontaneous breathing trial today. White count 17.4, hemoglobin 14.7, hematocrit 43.3, and platelet count 215,000. Sodium 141, potassium 3.6, chlorides 108, CO2 17, anion gap 16, BUN 19, creatinine 1.03. Glucose is 214. Calcium 11.2. Chest x-ray was unremarkable. Progress note dated June 27, 2024. This is a 69-year-old female seen in consultation yesterday. Please see my note above. The patient is seen today in the intensive care unit, room 260. The patient was ventilated yesterday, and was successfully extubated. Currently she is on saline at 10 cc an hour. She is not on no supplemental oxygen. Saturations are excellent. The patient could be transferred to the cardiac unit. Current labs include a white count 13, hemoglobin 14.2, hematocrit 41.9, and a normal platelet count. Sodium 138, potassium 4.3, chlorides 110, CO2 25, BUN 18, and creatinine 0.78. Leukosis 133. Calcium is 11.1. Brain MRI done yesterday reveals acute/subacute CVA involving the right inferior cerebellum, with additional foci of high signal within the bilateral occipital lobes right greater than left, representing microinfarcts. Progress note dated June 28, 2024. 69-year-old female with NSTEMI status post LAD and left circumflex stents was seen and examined at the bedside. She is not requiring any supplemental oxygen. Patient converted to normal sinus rhythm yesterday and is currently on metoprolol. Currently, the patient is resting comfortably. No issues last night according to the nurse. Patient is ambulating without assist. Current labs include a WBC 7.6, hemoglobin 13.2, hematocrit 40.6, platelet count 185. Sodium 137, potassium 4.0, chloride 110, bicarb 24, BUN 20, creatinine 0.83. Glucose 102. Calcium 11.2. Objective - Vital Signs Vital signs: Vital Signs Temp 98.3 F 06/29/24 08:00 Pulse 73 06/29/24 08:00 Resp 16 06/28/24 16:00 BP 98/67 06/29/24 08:00 Pulse Ox 98 06/29/24 03:34 FiO2 35 06/26/24 09:10 Intake & Output 06/28/24 06/29/24 06/29/24 18:59 06:59 18:59 Intake Total 480 500 Output Total 450 0 Balance 30 0 500 Weight 68.5 kg Intake: Oral 480 500 Output: Urine 450 0 Other: Voiding Method Toilet Toilet Toilet # Voids 1 2 # Bowel Movements 1 ABP, PAP, CO, CI - Last Documented Arterial Blood Pressure 139/59 - Exam No acute distress, oriented 3. Currently on room air. HEENT examination is grossly unremarkable. Mucous membranes are moist. No oral lesions. Neck supple. Full range of motion. No adenopathy thyromegaly or neck vein distention. Cardiovascular examination reveals an regular rhythm and rate. The patient is in normal sinus rhythm. S1-S2 normal. No S3 or S4. No discernible murmur noted. Heart rate 73 bpm. Lungs reveal clear breath sounds. Breath sounds are equal bilaterally. No adventitious lung sounds including wheezes rhonchi or crackles. Room air satu ration is 96%. Abdomen soft bowel sounds are heard. No masses or tenderness. Extremities are intact. No cyanosis clubbing or edema. Skin is without rash or lesion. Neurologic examination is brief but nonfocal. Romberg negative - Labs CBC & Chem 7: 06/29/24 05:38 06/29/24 05:38 Labs: Abnormal Lab Results - Last 24 Hours (Table) 06/29/24 Range/Units 05:38 Chloride 110 H (98-107) mmol/L BUN 20 H (7-17) mg/dL Glucose 102 H (74-99) mg/dL Calcium 11.2 H (8.4-10.2) mg/dL Microbiology - Last 24 Hours (Table) 06/25/24 20:20 Gram Stain - Final Sputum Sputum Culture - Final Assessment and Plan Assessment: Plan dated June 26, 2024. The patient has excellent gas exchange, and oxygenation on the ventilator. The patient is on propofol 35 mcg/kg/min. The patient is also getting saline at 10 cc an hour. Labs, x-rays, and medications are reviewed. The patient will have a daily interruption of sedation, and a spontaneous breathing trial. The patient's ventilator weaning parameters are excellent, including a negative expiratory force of 35, vital capacity of 1.35 L, respiratory rate 19, tidal vo lume of 465 mL, minute volume of 10.5 L/min, and a rapid shallow breathing index of 17. If the patient had a positive cuff leak, she can be extubated. We will continue to follow. Plan dated June 27, 2024. The patient is seen today in room 260. She is on room air. She is getting saline at 10 cc an hour. The patient was successfully extubated yesterday. She seems to be feeling okay. Brain MRI suggest the possibility of an acute/subacute CVA involving the cerebellum, and bilateral occipital lobes. Additional recommendations and suggestions are forthcoming. Neurology is following. Plan dated June 28, 2024. The patient has some atrial fibrillation with rapid ventricular response last night, and cardiology gave her some metoprolol. The patient is currently on room air. No IV fluids. She is clearly in atrial fibrillation with a heart rate of 120 bpm. The brain MRI did suggest the possibility of an acute/subacute CVA. Please see the note above. Labs, x-rays, and medications are reviewed. Prognosis is guarded. No additional recommendations at this time. Plan dated June 29, 2024. Patient with NSTEMI status post RCA and left circumflex stents. Patient co nverted to normal sinus rhythm yesterday. Currently on metoprolol tartrate 50 mg p.o. twice daily. The patient is currently on room air. No IV fluids. The brain MRI did suggest the possibility of an acute/subacute CVA. Patient is overall doing better and is ambulating without assist. Labs, x-rays, and medications are reviewed. Prognosis is guarded. Patient is hemodynamically stable to be discharged home today. Time with Patient: Less than 30
--- NOTE | 2024-06-29 12:11 | P.PN ---
Subjective Progress Note Date: 06/29/24 patient 69-year-old lady with no significant past medical history brought in the ER because of chest pain. Patient stated that she has been having intermittent chest pain for the last 10 days. Chest pain is like a constant pressure central nonradiating, no aggravating or relieving factor associated with this chest pressure, almost feels like indigestion. There was no complaint of shortness of breath. Denies any palpitation. There is no complaint orthopnea or PND. Denies any fever or chills. Patient went to see her PCP yesterday who did an EKG and gave her some nitro that relieved her pain. Overnight patient was having more of this chest pressure associated with nausea and vomiting at the ti me patient decided come to the ER. Initial lab work done in the ER showed WBC 7.1, hemoglobin 14.2, platelet count 196, sodium 140, potassium 4.1 BUN 17, creatinine 0.74, calcium 11.2, troponin 0.079 EKG done in the ER showed heart rate of 63 , no ST segment elevation or depression seen, Q waves in V1 V2 no T-wave inversions seen. Chest x-ray done in the ER showed no acute cardiopulmonary process Patient admitted to internal medicine servicepatient 69-year-old lady with no significant past medical history brought in the ER because of chest pain. Patient stated that she has been having intermittent chest pain for the last 10 days. Chest pain is like a constant pressure central nonradiating, no aggravating or relieving factor associated with this chest pressure, almost feels like indigestion. There was no complaint of shortness of breath. Denies any palpitation. There is no complaint orthopnea or PND. Denies any fever or chills. Patient went to see her PCP yesterday who did an EKG and gave her some nitro that relieved her pain. Overnight patient was having more of this chest pressure associated with nausea and vomiting at the time patient decided come to the ER. Initial lab work done in the ER showed WBC 7.1, hemoglobin 14.2, platelet count 196, sodium 140, potassium 4.1 BUN 17, creatinine 0.74, calcium 11.2, troponin 0.079 EKG done in the ER showed heart rate of 63 , no ST segment elevation or depression seen, Q waves in V1 V2 no T-wave inversions seen. Chest x-ray done in the ER showed no acute cardiopulmonary process Patient admitted to internal medicine service 06/26. Patient seen and examined. Patient underwent cardiac cath with Successful stenting of the mid RCA using 5.0 x 18 mm Xience TATA with excellent angiographic results and reduction of stenosis from 99% to 0%, Successful stenting of the proximal LAD using 4.0 x 33 mm Xience TATA with excellent ang iographic results and reduction of stenosis from 80% to 0% 2D echo done showed preserved LV systolic function without any wall motion of normalities. Post cath, patient became very agitated, patient had to be intubated and code stroke was called. Patient was extubated this morning. Currently doing much better 06/27. Patient seen and examined . Brain MRI done reveals acute/subacute CVA involving the right inferior cerebellum, with additional foci of high signal within the bilateral occipital lobes right greater than left, representing microinfarcts. No sore throat. No weakness of any extremity 06/28. Patient seen and examined. Complaining of diarrhea and nausea. No weakness of any extremity 06/29. Patient seen and examined no further episodes of arrhythmia. Denies any weakness or lethargy. REVIEW OF SYSTEMS: Denies any chest pain Denies shortness of breath. Following commands. PHYSICAL EXAMINATION: GENERAL: The patient is alert HEENT: Pupils are round and equally reacting to light. EOMI. No scleral icterus. No conjunctival pallor. Normocephalic, atraumatic. No pharyngeal erythema. No thyromegaly. CARDIOVASCULAR: S1 and S2 present. No murmurs, rubs, or gallops. PULMONARY: Chest is clear to auscultation, no wheezing or crackles. ABDOMEN: Soft, nontender, nondistended, normoactive bowel sounds. No palpable organomegaly. MUSCULOSKELETAL: No joint swelling or deformity. EXTREMITIES: No cyanosis, clubbing, or pedal edema. NEUROLOGICAL: Alert Assessment and plan Non-ST elevation ID Acute CVA New onset A-fib with RVR Acute hypertensive encephalopathy Vent dependent respiratory failure hypertension Monitor vital signs Monitor CBC Monitor CMP Continue telemetry monitoring Brain MRI done reveals acute/subacute CVA involving the right inferior cerebellum, with additional foci of high signal within the bilateral occipital lobes right greater than left, representing microinfarcts. Status post cardiac cath with Successful stenting of the mid RCA using 5.0 x 18 mm Xience TATA with excellent angiographic results and reduction of stenosis from 99% to 0%, Successful stenting of the proximal LAD using 4.0 x 33 mm Xience TATA with excellent angiographic results and reduction of stenosis from 80% to 0% Continue aspirin, Brilinta, Lipitor Continue metoprolol 50 mg twice daily Cardiology following Neurology following ICU following Labs and medication were reviewed.. Continue same treatment. Continue with symptomatic treatment. Resume home medication. Monitor labs and vitals. DVT and GI prophylaxis. Further recommendations as per clinical course of the patient Dictation was produced using [employer] dictation software. please excuse any grammatical, word or spelling errors. Objective - Vital Signs Vital signs: Vital Signs Temp 98.3 F 06/29/24 08:00 Pulse 73 06/29/24 08:00 Resp 16 06/28/24 16:00 BP 98/67 06/29/24 08:00 Pulse Ox 98 06/29/24 03:34 FiO2 35 06/26/24 09:10 Intake & Output 06/28/24 06/29/24 06/29/24 18:59 06:59 18:59 Intake Total 480 Output Total 450 0 Balance 30 0 Weight 68.5 kg Intake: Oral 480 Output: Urine 450 0 Other: Voiding Method Toilet Toilet Toilet # Voids 1 # Bowel Movements 1 ABP, PAP, CO, CI - Last Documented Arterial Blood Pressure 139/59 - Labs CBC & Chem 7: 06/29/24 05:38 06/29/24 05:38 Labs: Abnormal Lab Results - Last 24 Hours (Table) 06/29/24 Range/Units 05:38 Chloride 110 H (98-107) mmol/L BUN 20 H (7-17) mg/dL Glucose 102 H (74-99) mg/dL Calcium 11.2 H (8.4-10.2) mg/dL Microbiology - Last 24 Hours (Table) 06/25/24 20:20 Gram Stain - Final Sputum Sputum Culture - Final
--- NOTE | 2024-06-29 15:16 | P.PN ---
Subjective Progress Note Date: 06/29/24 Pulmonary consult dated June 26, 2024. 69-year-old female who presented to the emergency department, on June 25. She apparently came in with abdominal discomfort, as well as chest pressure. He r symptoms have been apparently going on for a number of days, prior to admission. The patient was felt to have coronary syndrome, taken to the catheterization laboratory yesterday. The patient had stents placed in her right coronary artery, and LAD. Sometime during the procedure, the patient cecelia arently became quite hypertensive, and had a change in her neurologic status. The patient was thought to maybe have a stroke syndrome, and she was intubated, so that she could have a CT scan of the brain, which was negative. I was called by the cena, who asked me to consult on this patient, for ICU management. The patient CT scan was negative. The patient also had a negative angiography CT. This morning, she is on the ventilator, with settings of volume assist-control, rate 14, tidal volume 400, FiO2 35% PEEP of 5. Blood gases on 50% show pO2 222, pCO2 38, and pH is 7.35. The patient is currently on propofol at 35 mcg/kg/min, and saline at 10 cc an hour. We are going to give the patient a daily interruption of sedation, spontaneous breathing trial today. White count 17.4, hemoglobin 14.7, hematocrit 43.3, and platelet count 215,000. Sodium 141, potassium 3.6, chlorides 108, CO2 17, anion gap 16, BUN 19, creatinine 1.03. Glucose is 214. Calcium 11.2. Chest x-ray was unremarkable. Progress note dated June 27, 2024. This is a 69-year-old female seen in consultation yesterday. Please see my note above. The patient is seen today in the intensive care unit, room 260. The patient was ventilated yesterday, and was successfully extubated. Currently she is on saline at 10 cc an hour. She is not on no supplemental oxygen. Saturations are excellent. The patient could be transferred to the cardiac unit. Current labs include a white count 13, hemoglobin 14.2, hematocrit 41.9, and a normal platelet count. Sodium 138, potassium 4.3, chlorides 110, CO2 25, BUN 18, and creatinine 0.78. Leukosis 133. Calcium is 11.1. Brain MRI done yesterday reveals acute/subacute CVA involving the right inferior cerebellum, with additional foci of high signal within the bilateral occipital lobes right greater than left, representing microinfarcts. Progress note dated June 28, 2024. 69-year-old female seen in room 260. She is not requiring any supplemental oxygen. She did have some atrial fibrillation with RVR last night. She received some Lopressor, per cardiology. Currently, the patient is resting comfortably. No issues last night according to the nurse. Current labs include a white count 11.2, hemoglobin 14.1, hematocrit 41, platelet count 180,000. Sodium 136, potassium 4, chlorides 109, CO2 25, BUN 18, creatinine 0.84. Glucose is 125. Calcium is 11.0. 06/29/2024, patient is being seen for a follow-up. The patient is awake and alert, extubated and the patient is currently on room air oxygen with a pulse ox of 98%. The patient is free of any chest pain. The patient is postcardiac catheterization for acute non-ST segment elevation myocardial infarction the patient was found to have obstructive disease involving the LAD and the circumflex and the patient underwent stenting of both of those vessels. The patient also recovered from acute hypoxic respiratory failure that occurred during the time of the cardiac catheterization and currently she is on room air oxygen. Hemodynamically stable. Mental status is improved and the patient is back into normal mentation. The patient had a single episode of atrial fibrillation without any subsequent recurrence. She has no specific complaints. She is on dual antiplatelet agents including aspirin and Brilinta. She had have stroke as the patient's MRI of the brain confirmed presence of a acute/subacute CVA involving the right inferior cerebellum and bilateral occipital lobes. The patient was kept on antiplatelet agents. The patient is in normal sinus rhythm. No issues with balance. No issues with vision. She is ambulating. No focal neurological deficits. Motor function is symmetrical in and lower extremities. Objective - Vital Signs Vital signs: Vital Signs Temp 98.3 F 06/29/24 08:00 Pulse 73 06/29/24 08:00 Resp 16 06/28/24 16:00 BP 98/67 06/29/24 08:00 Pulse Ox 98 06/29/24 03:34 FiO2 35 06/26/24 09:10 Intake & Output 06/28/24 06/29/24 06/29/24 18:59 06:59 18:59 Intake Total 480 Output Total 450 0 Balance 30 0 Weight 68.5 kg Intake: Oral 480 Output: Urine 450 0 Other: Voiding Method Toilet Toilet Toilet # Voids 1 # Bowel Movements 1 ABP, PAP, CO, CI - Last Documented Arterial Blood Pressure 139/59 - Exam No acute distress, oriented 3. Currently on room air. HEENT examination is grossly unremarkable. Mucous membranes are moist. No oral lesions. Neck supple. Full range of motion. No adenopathy thyromegaly or neck vein distention. Cardiovascular examination reveals an irregular rhythm and rate. The patient is clearly in atrial fibrillation. S1-S2 normal. No S3 or S4. No discernible murmur noted. Lungs reveal clear breath sounds. Breath sounds are equal bilaterally. No adventitious lung sounds including wheezes rhonchi or crackles. Abdomen soft bowel sounds are heard. No masses or tenderness. Extremities are intact. No cyanosis clubbing or edema. Skin is without rash or lesion. Neurologic examination is brief but nonfocal. - Labs CBC & Chem 7: 06/29/24 05:38 06/29/24 05:38 Labs: Abnormal Lab Results - Last 24 Hours (Table) 06/29/24 Range/Units 05:38 Chloride 110 H (98-107) mmol/L BUN 20 H (7-17) mg/dL Glucose 102 H (74-99) mg/dL Calcium 11.2 H (8.4-10.2) mg/dL Microbiology - Last 24 Hours (Table) 06/25/24 20:20 Gram Stain - Final Sputum Sputum Culture - Final Assessment and Plan Plan: Acute non-ST segment elevation myocardial infarction, status post cardiac catheterization and stenting of the RCA and LAD Atrial fibrillation, single episode without any subsequent recurrence Acute hypertension and neurologic changes, during cardiac catheterization, requiring intubation and mechanical ventilation. Further investigation with an MRI of the brain showed evidence of an acute/subacute CVA involving the right inferior cerebellum and bilateral occipital lobes. The patient is currently on dual antiplatelet coverage postcardiac catheterization and stenting. No new onset focal neurological deficit and the patient is ambulating. Acute hypoxic respiratory failure, recovered, routine postoperative ventilator management, with successful extubation on 06/26/2024 and the patient is currently on room air oxygen. History of hypertension. History of osteoporosis. Plan: Patient is currently on room air oxygen Neurologically stable Hemodynamically stable Continue aspirin and Tricor Continue metoprolol Continue statins Patient can be transferred out of the intensive care unit today.
--- NOTE | 2024-06-29 15:29 | P.PN ---
Subjective Progress Note Date: 06/29/24 I am seeing the patient for the first time during this admission. Refer to Dr. Faustin's note for further details. The patient she presented to hospital because of chest pain and seems that she was found to have acute non-STEMI. She had a stent during this admission. This hospital visit patient developed acute onset confusion at the end of cardiac cath stenting with a rise in blood pressure and she had aphasia agitation and she had a CT of the head which shows her acute ischemic stroke. Also seems to the patient developed a brief period of new onset atrial fibrillation Patient states during this hospital visit she is having diarrhea and she feels tired but otherwise denies any focal deficit. She is feeling better and feels diarrhea is improving. Denies any speech difficulty. Denies any issues with walking. Objective - Vital Signs Vital signs: Vital Signs Temp 98.5 F 06/29/24 12:00 Pulse 63 06/29/24 12:00 Resp 24 06/29/24 12:00 BP 101/70 06/29/24 12:00 Pulse Ox 98 06/29/24 03:34 FiO2 35 06/26/24 09:10 Intake & Output 06/28/24 06/29/24 06/29/24 18:59 06:59 18:59 Intake Total 480 500 Output Total 450 0 Balance 30 0 500 Weight 68.5 kg Intake: Oral 480 500 Output: Urine 450 0 Other: Voiding Method Toilet Toilet Toilet # Voids 1 2 # Bowel Movements 1 ABP, PAP, CO, CI - Last Documented Arterial Blood Pressure 139/59 - Exam GENERAL: The patient is lying in bed and is not in acute distress. NEUROLOGICAL: Higher mental function: The patient is awake, alert, oriented to self, place and time. Patient is following commands. No aphasia and no neglect. Cranial nerves: The pupils are round, equal and reactive to light and accommodation. Visual mckinney are full to confrontation throughout. Extraocular movement is intact no nystagmus is noted. Facial sensation is normal to touch throughout. The facial strength is normal throughout. Tongue is midline and moved [id number] without any difficulty. No dysarthria is noted. Shoulder shrug is normal bilaterally. Motor: Gait is normal. The strength is 5 over 5 throughout. Normal tone and bulk. Cerebellum: Normal finger to nose bilaterally. Sensation: Sensation is normal to touch throughout. - Labs CBC & Chem 7: 06/29/24 05:38 06/29/24 05:38 Labs: Abnormal Lab Results - Last 24 Hours (Table) 06/29/24 Range/Units 05:38 Chloride 110 H (98-107) mmol/L BUN 20 H (7-17) mg/dL Glucose 102 H (74-99) mg/dL Calcium 11.2 H (8.4-10.2) mg/dL Assessment and Plan Assessment: * Acute ischemic stroke, small, multifocal involving the right inferior cerebellum with additional foci of high DWI signal within the bilateral occipital lobes, right greater than left, and right side of splenium, representing microinfarcts. Patient had developed an acute onset of encephalopathy at the end of cardiac catheterization/cardiac stenting, with acute rise in blood pressure, aphasia, agitation but otherwise no obvious lateralizing symptoms were noted. No large vessel occlusion noted on CTA. * New onset atrial fibrillation with RVR, now in sinus rhythm * Acute non-STEMI * Status post cardiac stenting to the RCA and LAD. * Hypertension * Hyperlipidemia * Status post extubation. Plan: * Patient has developed new onset brief atrial fibrillation. From neurology perspective if this is not provoked then recommend placing the patient on direct oral anticoagulation. * The patient is on aspirin 81 mg daily, Brilinta 90 mg 1 tablet twice daily. Once the patient is on anticoagulation no need for dual antiplatelet from a neurologic perspective but will defer that to the cardiology team as well as primary team. Patient was not taking any medication, not any antiplatelet medication at home. * MRI of the brain revealed acute/subacute CVA involving the right inferior cerebellum with additional foci of high DWI signal within the bilateral occipital lobes, right greater than left, and right splenium of the corpus callosum. Suggestive of multifocal acute ischemic infarcts. This probably is embolic in nature, likely related to shower of microemboli. * 2-D echo revealed preserved LV systolic function without any wall motion abnormalities. LVEF 60 to 65%. Mildly increased septal wall thickness. Prominent posterior pericardial stripe. Normal left atrial size. * CTA of head and neck revealed no evidence of dissection of the cervical internal carotid arteries or vertebral arteries or any evidence of significant stenosis at the carotid bifurcation. No evidence of intracranial high-grade stenosis or intracranial aneurysm. * Fasting a.m. lipid panel cholesterol 243, LDL 106, HDL 33 and triglycerides 580.. Patient started on Lipitor 80 mg daily. * Hemoglobin A1c 6.0 * Optimize control of blood pressure. Blood pressure is actually very well-controlled. Avoid hypotension. * Neuro checks every 4 hours. * Telemetry monitoring rule out any arrhythmia * PT, OT, speech therapy * Cardiology is on board. * DVT prophylaxis:heparin 5000 units subcu every 8 hours. Plan discussed with the patient, her is at bedside and primary attending Time with Patient: Less than 30
[2024-06-29] MEDS ORDERED: BENZOCAINE 20% HEMORRHOIDAL OINT 28GM RECTAL PRN (18:36)
--- NOTE | 2024-06-30 07:33 | P.PN ---
Subjective Progress Note Date: 06/30/24 PROGRESS NOTE The patient is a 69-year-old female who presented with non-STEMI and underwent cardiac catheterization, found to have obstructive disease in the LAD and left circumflex and underwent stenting of both vessels. She has some change in mental status that resolved. She is feeling well this morning, ambulating without difficulties. She denies any chest discomfort, dizziness or palpitations. She had an episode of atrial fibrillation yesterday that was brief and resolved. June 30: The patient is awake and alert, ambulated yesterday without difficulties. She continues to be in sinus mechanism without any further evidence of atrial fibrillation. Her MRI showed evidence of CVA with multiple area raising the possibility of recurrent atrial fibrillation in the past. Her blood pressure has been stable. She denies any dizziness or palpitations. She denies any nausea or vomiting. Medications: Aspirin, Lipitor 80 mg daily, metoprolol 50 mg twice a day, lisinopril 5 mg daily, Brilinta 90 mg twice a day PHYSICAL EXAMINATION: Blood pressure 112/67 heart rate 64 LUNGS: Clear to auscultation HEART: Regular rate and rhythm, S1, S2. No S3. No systolic murmur ABDOMEN: Soft, nontender, no organomegaly EXTREMETIES: No edema LAB: Pending IMPRESSION: 1. Status post non-STEMI with stenting of the LAD and left circumflex 2. Change in mental status, resolved 3. 1 episode of atrial fibrillation without any further recurrence, evidence of CVA with multi foci 4. Hypertension, under good control PLAN: 1. Increase physical activity 2. Add anticoagulation because of the results of the MRI and the episode of paroxysmal atrial fibrillation 3. Stop aspirin in 1 week and continue Brilinta and anticoagulation 4. Probable discharge home today and follow-up with Dr. Dunn Objective - Vital Signs Vital signs: Vital Signs Temp 98.4 F 06/30/24 04:00 Pulse 64 06/30/24 04:00 Resp 16 06/30/24 04:00 BP 112/67 06/30/24 04:00 Pulse Ox 95 06/30/24 04:00 FiO2 35 06/26/24 09:10 Intake & Output 06/29/24 06/30/24 06/30/24 18:59 06:59 18:59 Intake Total 2500 Output Total 4 Balance 0695 Weight 68.8 kg Intake: Oral 2500 Output: Stool 4 Other: Voiding Method Toilet Toilet # Voids 5 1 ABP, PAP, CO, CI - Last Documented Arterial Blood Pressure 139/59 - Labs CBC & Chem 7: 06/29/24 05:38 06/29/24 05:38
[2024-06-30] MEDS: APIXABAN 5 MG TAB PO SCH (09:03)
[2024-06-30 11:34] VITALS: BP 113/76
[2024-06-30 12:18] VITALS: PULSE 60; RESP 18; TEMP 98.3
--- NOTE | 2024-06-30 12:23 | P.PN ---
Subjective Progress Note Date: 06/30/24 I am following up with the patient and she was started on Eliquis 5 mg twice a day by cardiology team. Denies of any new neurological issues. Objective - Vital Signs Vital signs: Vital Signs Temp 98.3 F 06/30/24 12:00 Pulse 60 06/30/24 12:00 Resp 18 06/30/24 12:00 BP 113/76 06/30/24 11:20 Pulse Ox 95 06/30/24 12:00 FiO2 35 06/26/24 09:10 Intake & Output 06/29/24 06/30/24 06/30/24 18:59 06:59 18:59 Intake Total 2500 Output Total 4 Balance 2496 Weight 68.8 kg Intake: Oral 2500 Output: Stool 4 Other: Voiding Method Toilet Toilet Toilet # Voids 5 1 1 ABP, PAP, CO, CI - Last Documented Arterial Blood Pressure 139/59 - Exam GENERAL: The patient is lying in bed and is not in acute distress. NEUROLOGICAL: Higher mental function: The patient is awake, alert, oriented to self, place and time. Patient is following commands. No aphasia and no neglect. Cranial nerves: The pupils are round, equal and reactive to light and accommod ation. Visual mckinney are full to confrontation throughout. Extraocular movement is intact no nystagmus is noted. Facial sensation is normal to touch throughout. The facial strength is normal throughout. Tongue is midline and moved [id number] without any difficulty. No dysarthria is noted. Shoulder shrug is normal bilaterally. Motor: Gait is normal. The strength is 5 over 5 throughout. Normal tone and bulk. Cerebellum: Normal finger to nose bilaterally. Sensation: Sensation is normal to touch throughout. - Labs CBC & Chem 7: 06/29/24 05:38 06/29/24 05:38 Assessment and Plan Assessment: * Acute ischemic stroke, small, multifocal involving the right inferior cerebellum with additional foci of high DWI signal within the bilateral occipital lobes, right greater than left, and right side of splenium, representing microinfarcts. Patient had developed an acute onset of encephalopathy at the end of cardiac catheterization/cardiac stenting, with acute rise in blood pressure, aphasia, agitation but otherwise no obvious lateralizing symptoms were noted. No large vessel occlusion noted on CTA. * New onset atrial fibrillation with RVR, now in sinus rhythm * Acute non-STEMI * Status post cardiac stenting to the RCA and LAD. * Hypertension * Hyperlipidemia * Status post extubation. Plan: * Patient has developed new onset brief atrial fibrillation. Cardiology has started her on Eliquis 5 mg twice daily. * The patient is on aspirin 81 mg daily, Brilinta 90 mg 1 tablet twice daily. Will defer the use of antiplatelets to the cardiology team and primary team. Patient was not taking any medication, not any antiplatelet medication at home. * MRI of the brain revealed acute/subacute CVA involving the right inferior cerebellum with additional foci of high DWI signal within the bilateral occipital lobes, right greater than left, and right splenium of the corpus callosum. Suggestive of multifocal acute ischemic infarcts. This probably is embolic in nature, likely related to shower of microemboli. * 2-D echo revealed preserved LV systolic function without any wall motion abnormalities. LVEF 60 to 65%. Mildly increased septal wall thickness. Prominent posterior pericardial stripe. Normal left atrial size. * CTA of head and neck revealed no evidence of dissection of the cervical internal carotid arteries or vertebral arteries or any evidence of significant stenosis at the carotid bifurcation. No evidence of intracranial high-grade stenosis or intracranial aneurysm. * Fasting a.m. lipid panel cholesterol 243, LDL 106, HDL 33 and triglycerides 580.. Patient started on Lipitor 80 mg daily. * Hemoglobin A1c 6.0 * Optimize control of blood pressure. Blood pressure is actually very well- controlled. Avoid hypotension. * Neuro checks every 4 hours. * Telemetry monitoring rule out any arrhythmia * PT, OT, speech therapy * Cardiology is on board. * DVT prophylaxis: On eliquis. * Discharge recommend the patient to follow-up with a neurologist as an outpatient within 2 weeks. Plan discussed with the patient and primary attending. There is no further neurological workup. Will sign off. Please reconsult if needed. Time with Patient: Less than 30
--- NOTE | 2024-06-30 13:03 | P.DS ---
Providers Date of admission: 06/25/24 05:41 Expected date of discharge: 06/30/24 Attending physician: Caroline Ramsey Consults: 06/25/24 05:41 Consult Physician Urgent Consulting Provider: [facility] Consult Reason/Comments: NSTEMI Do you want consulting provider notified?: Yes 06/25/24 16:02 Consult Physician Urgent Consulting Provider: Katie Faustin Consult Reason/Comments: confusion s/p stent placement Do you want consulting provider notified?: Yes 06/25/24 16:44 Consult Physician Routine Consulting Provider: Erwin Briseno Consult Reason/Comments: respiratory failure Do you want consulting provider notified?: Yes Primary care physician: Marcela Naranjo Hospital Course: Discharge diagnoses; Non-ST elevation DE Acute CVA New onset A-fib with RVR Acute hypertensive encephalopathy Vent dependent respiratory failure hypertension Hospital course; patient 69-year-old lady with no significant past medical history brought in the ER because of chest pain. Patient stated that she has been having intermittent chest pain for the last 10 days. Chest pain is like a constant pressure central nonradiating, no aggravating or relieving factor associated with this chest pressure, almost feels like indigestion. There was no complaint of shortness of breath. Denies any palpitation. There is no complaint orthopnea or PND. Denies any fever or chills. Patient went to see her PCP yesterday who did an EKG and gave her some nitro that relieved her pain. Overnight patient was having more of this chest pressure associated with nausea and vomiting at the t mauricio patient decided come to the ER. Initial lab work done in the ER showed WBC 7.1, hemoglobin 14.2, platelet count 196, sodium 140, potassium 4.1 BUN 17, creatinine 0.74, calcium 11.2, troponin 0.079 EKG done in the ER showed heart rate of 63 , no ST segment elevation or depression seen, Q waves in V1 V2 no T-wave inversions seen. Chest x-ray done in the ER showed no acute cardiopulmonary process Patient admitted to internal medicine servicepatient 69-year-old lady with no significant past medical history brought in the ER because of chest pain. Patient stated that she has been having intermittent chest pain for the last 10 days. Chest pain is like a constant pressure central nonradiating, no aggravating or relieving factor associated with this chest pressure, almost feels like indigestion. There was no complaint of shortness of breath. Denies any palpitation. There is no complaint orthopnea or PND. Denies any fever or chills. Patient went to see her PCP yesterday who did an EKG and gave her some nitro that relieved her pain. Overnight patient was having more of this chest pressure associated with nausea and vomiting at the time patient decided come to the ER. Initial lab work done in the ER showed WBC 7.1, hemoglobin 14.2, platelet count 196, sodium 140, potassium 4.1 BUN 17, creatinine 0.74, calcium 11.2, troponin 0.079 EKG done in the ER showed heart rate of 63 , no ST segment elevation or depression seen, Q waves in V1 V2 no T-wave inversions seen. Chest x-ray done in the ER showed no acute cardiopulmonary process Patient admitted to internal medicine service 06/26. Patient seen and examined. Patient underwent cardiac cath with Successful stenting of the mid RCA using 5.0 x 18 mm Xience TATA with excellent angiographic results and reduction of stenosis from 99% to 0%, Successful stenting of the proximal LAD using 4.0 x 33 mm Xience TATA with excellent angiographic results and reduction of stenosis from 80% to 0% 2D echo done showed preserved LV systolic function without any wall motion of normalities. Post cath, patient became very agitated, patient had to be intubated and code stroke was called. Patient was extubated this morning. Currently doing much better 06/27. Patient seen and examined . Brain MRI done reveals acute/subacute CVA involving the right inferior cerebellum, with additional foci of high signal within the bilateral occipital lobes right greater than left, representing microinfarcts. No sore throat. No weakness of any extremity 06/28. Patient seen and examined. Complaining of diarrhea and nausea. No weakness of any extremity 06/29. Patient seen and examined no further episodes of arrhythmia. Denies any weakness or lethargy. 06/30. Patient seen and examined. Patient started on Eliquis, cardiology recommended discharging patient on aspirin, Brilinta, Eliquis, aspirin needs to be stopped after 1 week and patient is to continue on Brilinta and Eliquis afterwards. Outpatient follow-up with PCP, cardiology and neurology PHYSICAL EXAMINATION: GENERAL: The patient is alert and oriented x3, not in any acute distress. Well developed, well nourished. HEENT: Pupils are round and equally reacting to light. EOMI. No scleral icterus. No conjunctival pallor. Normocephalic, atraumatic. No pharyngeal erythema. No thyromegaly. CARDIOVASCULAR: S1 and S2 present. No murmurs, rubs, or gallops. PULMONARY: Chest is clear to auscultation, no wheezing or crackles. ABDOMEN: Soft, nontender, nondistended, normoactive bowel sounds. No palpable organomegaly. MUSCULOSKELETAL: No joint swelling or deformity. EXTREMITIES: No cyanosis, clubbing, or pedal edema. NEUROLOGICAL: Gross neurological examination did not reveal any focal deficits. SKIN: No rashes. Dictation was produced using [employer] dictation software. please excuse any grammatical, word or spelling errors. Patient Condition at Discharge: Stable Plan - Discharge Summary Discharge Rx Participant: Yes New Discharge Prescriptions: New Ticagrelor [Brilinta] 90 mg PO BID 30 Days #60 tab Atorvastatin [Lipitor] 80 mg PO HS 30 Days #30 tab Nitroglycerin Sl Tabs [Nitrostat] 0.4 mg SUBLINGUAL Q5M PRN #30 tab PRN Reason: Chest Pain lisinopriL [Zestril] 5 mg PO DAILY #30 tab Aspirin 81 mg PO DAILY #7 tab Apixaban [Eliquis] 5 mg PO BID 30 Days #60 tab Metoprolol Tartrate [Lopressor] 50 mg PO BID 30 Days #60 tab Discharge Medication List Apixaban [Eliquis] 5 mg PO BID 30 Days #60 tab 06/30/24 [Rx] Aspirin 81 mg PO DAILY #7 tab 06/30/24 [Rx] Atorvastatin [Lipitor] 80 mg PO HS 30 Days #30 tab 06/30/24 [Rx] Metoprolol Tartrate [Lopressor] 50 mg PO BID 30 Days #60 tab 06/30/24 [Rx] Nitroglycerin Sl Tabs [Nitrostat] 0.4 mg SUBLINGUAL Q5M PRN #30 tab 06/30/24 [Rx] Ticagrelor [Brilinta] 90 mg PO BID 30 Days #60 tab 06/30/24 [Rx] lisinopriL [Zestril] 5 mg PO DAILY #30 tab 06/30/24 [Rx] Follow up Appointment(s)/Referral(s): Yordy Dunn MD [Medical Doctor] - 1 Week Marcela Naranjo DO [Primary Care Provider] - 1-2 days Jonn Corbin MD [STAFF PHYSICIAN] - 1 Week Patient Instructions/Handouts: Heart Attack (DC), Heart Healthy Diet (DC), Ischemic Stroke (DC), Mediterranean Diet (DC) Discharge Disposition: HOME SELF-CARE
--- NOTE | 2024-06-30 13:13 | P.PN ---
Subjective Progress Note Date: 06/30/24 Pulmonary consult dated June 26, 2024. 69-year-old female who presented to the emergency department, on June 25. She apparently came in with abdominal discomfort, as well as chest pressure. He r symptoms have been apparently going on for a number of days, prior to admission. The patient was felt to have coronary syndrome, taken to the catheterization laboratory yesterday. The patient had stents placed in her right coronary artery, and LAD. Sometime during the procedure, the patient cecelia arently became quite hypertensive, and had a change in her neurologic status. The patient was thought to maybe have a stroke syndrome, and she was intubated, so that she could have a CT scan of the brain, which was negative. I was called by the roller pneumatic, who asked me to consult on this patient, for ICU management. The patient CT scan was negative. The patient also had a negative angiography CT. This morning, she is on the ventilator, with settings of volume assist-control, rate 14, tidal volume 400, FiO2 35% PEEP of 5. Blood gases on 50% show pO2 222, pCO2 38, and pH is 7.35. The patient is currently on propofol at 35 mcg/kg/min, and saline at 10 cc an hour. We are going to give the patient a daily interruption of sedation, spontaneous breathing trial today. White count 17.4, hemoglobin 14.7, hematocrit 43.3, and platelet count 215,000. Sodium 141, potassium 3.6, chlorides 108, CO2 17, anion gap 16, BUN 19, creatinine 1.03. Glucose is 214. Calcium 11.2. Chest x-ray was unremarkable. Progress note dated June 27, 2024. This is a 69-year-old female seen in consultation yesterday. Please see my note above. The patient is seen today in the intensive care unit, room 260. The patient was ventilated yesterday, and was successfully extubated. Currently she is on saline at 10 cc an hour. She is not on no supplemental oxygen. Saturations are excellent. The patient could be transferred to the cardiac unit. Current labs include a white count 13, hemoglobin 14.2, hematocrit 41.9, and a normal platelet count. Sodium 138, potassium 4.3, chlorides 110, CO2 25, BUN 18, and creatinine 0.78. Leukosis 133. Calcium is 11.1. Brain MRI done yesterday reveals acute/subacute CVA involving the right inferior cerebellum, with additional foci of high signal within the bilateral occipital lobes right greater than left, representing microinfarcts. Progress note dated June 28, 2024. 69-year-old female seen in room 260. She is not requiring any supplemental oxygen. She did have some atrial fibrillation with RVR last night. She received some Lopressor, per cardiology. Currently, the patient is resting comfortably. No issues last night according to the nurse. Current labs include a white count 11.2, hemoglobin 14.1, hematocrit 41, platelet count 180,000. Sodium 136, potassium 4, chlorides 109, CO2 25, BUN 18, creatinine 0.84. Glucose is 125. Calcium is 11.0. 06/29/2024, patient is being seen for a follow-up. The patient is awake and alert, extubated and the patient is currently on room air oxygen with a pulse ox of 98%. The patient is free of any chest pain. The patient is postcardiac catheterization for acute non-ST segment elevation myocardial infarction the patient was found to have obstructive disease involving the LAD and the circumflex and the patient underwent stenting of both of those vessels. The patient also recovered from acute hypoxic respiratory failure that occurred during the time of the cardiac catheterization and currently she is on room air oxygen. Hemodynamically stable. Mental status is improved and the patient is back into normal mentation. The patient had a single episode of atrial fibrillation without any subsequent recurrence. She has no specific complaints. She is on dual antiplatelet agents including aspirin and Brilinta. She had have stroke as the patient's MRI of the brain confirmed presence of a acute/subacute CVA involving the right inferior cerebellum and bilateral occipital lobes. The patient was kept on antiplatelet agents. The patient is in normal sinus rhythm. No issues with balance. No issues with vision. She is ambulating. No focal neurological deficits. Motor function is symmetrical in and lower extremities. On 06/30/2024, the patient is doing well. No specific complaints. She was seen by cardiology this morning and she was started on anticoagulation with Eliquis concerning her stroke which is thought to be embolic in nature. She did encounter 1 episode of atrial fibrillation and she is currently back into normal sinus rhythm. She remains on metoprolol 50 mg twice daily. She remains on Brilinta and aspirin. She is free of any chest pain. She is on room air oxygen. The white cell count 7.6 with a hemoglobin 13.2, BUN is 20 with a creatinine of 0.8 and sodium levels at 137. Her calcium level was noted to be quite elevated at 11.2. No new onset focal neurological deficits. MRI of the brain was noted. Current cardiac rhythm is sinus. Objective - Vital Signs Vital signs: Vital Signs Temp 98.4 F 06/30/24 04:00 Pulse 64 06/30/24 04:00 Resp 16 06/30/24 04:00 BP 112/67 06/30/24 04:00 Pulse Ox 95 06/30/24 04:00 FiO2 35 06/26/24 09:10 Intake & Output 06/29/24 06/30/24 06/30/24 18:59 06:59 18:59 Intake Total 2500 Output Total 4 Balance 2496 Weight 68.8 kg Intake: Oral 2500 Output: Stool 4 Other: Voiding Method Toilet Toilet # Voids 5 1 ABP, PAP, CO, CI - Last Documented Arterial Blood Pressure 139/59 - Exam No acute distress, oriented 3. Currently on room air. HEENT examination is grossly unremarkable. Mucous membranes are moist. No oral lesions. Neck supple. Full range of motion. No adenopathy thyromegaly or neck vein distention. Cardiovascular examination reveals an irregular rhythm and rate. The patient is clearly in atrial fibrillation. S1-S2 normal. No S3 or S4. No discernible murmur noted. Lungs reveal clear breath sounds. Breath sounds are equal bilaterally. No adventitious lung sounds including wheezes rhonchi or crackles. Abdomen soft bowel sounds are heard. No masses or tenderness. Extremities are intact. No cyanosis clubbing or edema. Skin is without rash or lesion. Neurologic examination is brief but nonfocal. - Labs CBC & Chem 7: 06/29/24 05:38 06/29/24 05:38 Assessment and Plan Plan: Acute non-ST segment elevation myocardial infarction, status post cardiac catheterization and stenting of the RCA and LAD Atrial fibrillation, single episode without any subsequent recurrence, the patient remains in normal sinus rhythm and the patient was started on anticoagulation. She is currently on Eliquis. Acute hypertension and neurologic changes, during cardiac catheterization, requiring intubation and mechanical ventilation. Further investigation with an MRI of the brain showed evidence of an acute/subacute CVA involving the right inferior cerebellum and bilateral occipital lobes. The patient is currently on dual antiplatelet coverage postcardiac catheterization and stenting. No new o nset focal neurological deficit and the patient is ambulating. Acute hypoxic respiratory failure, recovered, routine postoperative ventilator management, with successful extubation on 06/26/2024 and the patient is currently on room air oxygen. History of hypertension. History of osteoporosis. Hypercalcemia Plan: Patient is currently on room air oxygen Neurologically stable Hemodynamically stable Continue aspirin and Brilinta Patient was started anticoagulation with Eliquis. Aspirin will be stopped in 1 week Check a intact PTH level Continue metoprolol Continue statins Patient can be transferred out of the intensive care unit today.
--- NOTE | 2024-07-16 10:14 | CDI ---
Documentation Clarification Form Date: 07/16/2024 09:20:06 AM From: Carmen Tellez RN, CC Phone: [phone] Admit Date: 06/25/2024 05:41:00 AM Patient Name: Trudy Livingston Visit Number: [id number] Discharge Date: 06/30/2024 01:58:00 PM ATTENTION: The Clinical Documentation Specialists (CDI) and [facility] Coding Staff appreciate your assistance in clarifying documentation. Please respond to the clarification below the line at the bottom and electronically sign. The CDI & [facility] Coding staff will review the response and follow-up if needed. Please note: Queries are made part of the Legal Health Record. If you have any questions, please contact the author of this message via ITS. Doctor/Provider: Josep Lundberg There is documentation of vent dependent respiratory failure. Additional clarification is requested. History/Risk Factors: Hypertension Clinical Indicators: 69-year-old female who presented to ED with abdominal discomfort, as well as chest pressure. She was ruled in for Non-ST elevation DC. 06/25/24 She had a Heart cauterization PTCA mid RCA and proximal LAD. She has history of hypertension and had elevation of her blood pressure change in mental status associated with agitation. 06/25/24 177/127 90 22 (vent) 06/25 Cardiology progress note: Patient's NIH stroke scale documented was 6. As patient was not calming down, patient has to be intubated for airway protection at 3:30 PM. 06/26/24 Pulmonary consult: She was intubated, so that she could have a CT scan of the brain, Acute hypertension and neurologic changes, during cardiac catheterization, requiring intubation and mechanical ventilation for brain CT Intubated 06/25/24 @ 1600 Extubate 06/26/24 @ 09:45 Treatment: ICU Monitoring Weaning/monitoring per Pulmonary orders Can you please further clarify vent dependent respiratory failure? [ x ] Not a complication, only for procedure (CT of brain) and airway protection [ ] Other, please specify [ ] Unable to determine (Template Last Revised: December 2020) MTDD
== END 2024-06-30 13:58 | disposition home or self-care (01) | DRG 321 ==
LOC: EC 03:31 → 3SCARD 05:41 → 2SICU 15:02
PROVIDERS: ADMIT Hospitalist; ATTEND Hospitalist
PROC: 027135Z Dilation of Coronary Artery, Two Arteries with Two Drug-eluting Intraluminal Devices, Percutaneous Approach (ICD-10-PCS; principal; 2024-06-25 12:30)
PROC: B241ZZ3 Ultrasonography of Multiple Coronary Arteries, Intravascular (ICD-10-PCS; principal; 2024-06-25 12:30)
PROC: 5A1935Z Respiratory Ventilation, Less than 24 Consecutive Hours (ICD-10-PCS; 2024-06-25 12:30)
PROC: 0BH17EZ Insertion of Endotracheal Airway into Trachea, Via Natural or Artificial Opening (ICD-10-PCS; 2024-06-25 12:30)
PROC: 0D9670Z Drainage of Stomach with Drainage Device, Via Natural or Artificial Opening (ICD-10-PCS; 2024-06-25 12:30)
PROC: B2111ZZ Fluoroscopy of Multiple Coronary Arteries using Low Osmolar Contrast (ICD-10-PCS; 2024-06-25 12:30)
PROC: 4A023N7 Measurement of Cardiac Sampling and Pressure, Left Heart, Percutaneous Approach (ICD-10-PCS; 2024-06-25 12:30)
DX: I21.4 Non-ST elevation (NSTEMI) myocardial infarction (principal); I63.9 Cerebral infarction, unspecified; J96.90 Respiratory failure, unspecified, unspecified whether with hypoxia or hypercapnia; I67.4 Hypertensive encephalopathy; R47.01 Aphasia; I25.10 Atherosclerotic heart disease of native coronary artery without angina pectoris; I10 Essential (primary) hypertension; E78.5 Hyperlipidemia, unspecified; I48.91 Unspecified atrial fibrillation; M81.0 Age-related osteoporosis without current pathological fracture; R45.1 Restlessness and agitation; Z78.1 Physical restraint status; R19.7 Diarrhea, unspecified; Z79.82 Long term (current) use of aspirin; Z79.899 Other long term (current) drug therapy
CPT/HCPCS: 36415; 36600; 70450; 70496; 70498; 70551; 71045; 71046; 80048; 80053; 80061; 82805; 83036; 83690; 83721; 83735; 83880; 83970; 84484; 85025; 85379; 85610; 85730; 87070; 87205; 87324; 92978; 92979; 93005; 93306; 93458; 94002; 94003; 94640; 96365; 96366; 96368; 99291